=== PATIENT | female | born 1945 | race Caucasian/White ===

== ENCOUNTER 2020-01-28 16:13 | Emergency (ER) | payer OTHER, SELFPAY ==
[2020-01-28 16:26] VITALS: BP 117/57; PULSE 65; RESP 20; TEMP 36.7; O2SAT 98
--- NOTE | 2020-01-28 16:59 | ED.GENADULT ---
HPI - General Adult General Chief complaint: Upper Respiratory Infection Stated complaint: Sore throat/headache Time Seen by Provider: 01/28/20 16:59 Source: patient and RN notes reviewed Mode of arrival: ambulatory Limitations: no limitations History of Present Illness HPI narrative: 74-year-old female presents with complaints of upper respiratory infection symptoms, bilateral ear pain, sore throat with burning sensation, body aches, cough, and intermittent headaches (not the worst of her life) for 1 day. OTC cold and flu medicine, and Robitussin with little relief. History of Asthma. Dry cough. Chest congestion. Rhinorrhea and nasal congestion. Exacerbating factors consists of smoke exposure. Sore throat bilateral. Hurts to swallow. No voice change. No high fevers, chills, drooling, neck, or throat swelling. No nausea, vomiting, and abdominal pain. Tolerating po liquids well. Denies chest pain, dyspnea, coughing up blood, difficulty swallowing, jaw pain, dental pain, facial pain, foreign body sensation, and rash. Remains active. Some parts of this dictation were generated by voice recognition software and may contain typographical and/or grammatical inaccuracies. Related Data Home Medications Medication Instructions Recorded Confirmed Advair HFA 01/28/20 [id number] 01/28/20 albuterol sulfate [ProAir HFA] 1 inh INHALATION QID PRN 01/28/20 01/28/20 alprazolam 0.5 mg PO TID 01/28/20 01/28/20 atorvastatin 40 mg PO DAILY 01/28/20 01/28/20 bupropion HCl 300 mg PO QAM 01/28/20 01/28/20 hyoscyamine sulfate 0.125 mg PO QID 01/28/20 01/28/20 meloxicam 15 mg PO DAILY 01/28/20 01/28/20 metoclopramide HCl 10 mg PO BID PRN 01/28/20 01/28/20 metoprolol succinate 25 mg PO DAILY 01/28/20 01/28/20 montelukast 10 mg PO DAILY 01/28/20 01/28/20 Allergies Allergy/AdvReac Type Severity Reaction Status Date / Time codeine Allergy Unknown Vomiting Verified 01/28/20 16:36 erythromycin base Allergy Unknown Vomiting Verified 01/28/20 16:36 tetracycline Allergy Unknown Vomiting Verified 01/28/20 16:36 amoxicillin [From Augmentin] Allergy Vomiting Verified 01/28/20 16:36 clavulanic acid Allergy Vomiting Verified 01/28/20 16:36 [From Augmentin] MEPERIDINE HCL Allergy Mild HALLUCINATI Uncoded 06/04/19 14:50 ONS OXYCODONE HCL AdvReac Mild NAUSEA, Uncoded 06/04/19 14:50 VOMITING Review of Systems Review of Systems: Narrative: CONSTITUTIONAL: Denies fever, chills, sweats. EYES: Denies visual changes, redness, discharge. ENT: Complains of rhinorrhea, congestion, sore throat, bilateral otalgia. CARDIOVASCULAR: Denies chest pain, palpitations, edema. RESPIRATORY: Denies dyspnea, wheezing. Complains of dry cough. GASTROINTESTINAL: Denies abdominal pain, nausea, vomiting, diarrhea. GENITOURINARY: Denies dysuria, hematuria, abnormal discharge. SKIN: Denies rash or itching. MUSCULOSKELETAL: Denies acute back pain, joint pain. Complains of myalgia. NEUROLOGIC: Denies numbness or focal weakness. PSYCHIATRIC: Denies anxiety or depression. Complains of intermittent TUCKER. All systems reviewed & are unremarkable except as noted in HPI and below. [facility] Past Medical History Medical History (Updated 01/29/20 @ 00:01 by Warner Palomares) Asthma Blockage of coronary artery of heart Diabetes Diverticulitis Hypercholesteremia Hypertension Surgical History Surgical History (Updated 01/28/20 @ 17:40 by KIRT Silverman) History of cervical spinal surgery History of cholecystectomy History of fundoplication History of hysterectomy History of spinal surgery Lower back x2 History of total knee arthroplasty Left Family History Family History Sibling Hypertension Family history of coronary artery disease Father Family history of coronary artery disease Mother Family history of coronary artery disease Other Diabetes mellitus Social
== END 2020-01-28 17:20 | disposition home or self-care (01) ==
PROVIDERS: Emergency Provider Nurse Practitioner Family
DX: J06.9 Acute upper respiratory infection, unspecified (principal); H61.21 Impacted cerumen, right ear; J45.909 Unspecified asthma, uncomplicated; Z96.652 Presence of left artificial knee joint
CPT/HCPCS: 69210; 87804; 99213; G0463

== ENCOUNTER 2021-04-18 12:24 | Emergency (ER) | payer OTHER, SELFPAY ==
[2021-04-18 12:31] VITALS: BP 136/67; PULSE 56; RESP 20; TEMP 36.8; O2SAT 99
[2021-04-18 12:44] VITALS: BP 136/67; PULSE 56; RESP 20; TEMP 36.8; O2SAT 99
--- NOTE | 2021-04-18 12:53 | ED.URI ---
HPI - URI/Sore Throat General Chief Complaint: Upper Respiratory Infection Stated Complaint: cough/sinus congesiton Time Seen by Provider: 04/18/21 12:55 Source: patient and RN notes reviewed Mode of arrival: ambulatory Limitations: no limitations History of Present Illness HPI Narrative: 75-year-old female presents to the [facility] with concerns of her sinus infection and bronchitis. Has been using her inhaler more often. Symptoms for over a week. No relief with Mucinex. Been using her rescue inhaler more often and she is almost out. Reports cough, sinus congestion, and fatigue. No concern for covid 19- vaccinated. States that the only way she gets v this is amox, and medrol dose pac. Denies CP and abd pain. Denies fevers. States that she does have occasional SOB with Cough and her inhaler helps Related Data Home Medications Medication Instructions Recorded Confirmed Advair HFA 01/28/20 [id number] 01/28/20 albuterol sulfate [ProAir HFA] 1 inh INHALATION QID PRN 01/28/20 01/28/20 alprazolam 0.5 mg PO TID 01/28/20 01/28/20 atorvastatin 40 mg PO DAILY 01/28/20 01/28/20 bupropion HCl 300 mg PO QAM 01/28/20 01/28/20 hyoscyamine sulfate 0.125 mg PO QID 01/28/20 01/28/20 meloxicam 15 mg PO DAILY 01/28/20 01/28/20 metoclopramide HCl 10 mg PO BID PRN 01/28/20 01/28/20 metoprolol succinate 25 mg PO DAILY 01/28/20 01/28/20 montelukast 10 mg PO DAILY 01/28/20 01/28/20 clopidogrel 04/18/21 ezetimibe mg 04/18/21 famotidine 04/18/21 fluticasone propion-salmeterol INHALATION 04/18/21 [Wixela Inhub] topiramate 04/18/21 Allergies Allergy/AdvReac Type Severity Reaction Status Date / Time codeine Allergy Unknown Vomiting Verified 01/28/20 16:36 erythromycin base Allergy Unknown Vomiting Verified 01/28/20 16:36 tetracycline Allergy Unknown Vomiting Verified 01/28/20 16:36 amoxicillin [From Augmentin] Allergy Vomiting Verified 01/28/20 16:36 clavulanic acid Allergy Vomiting Verified 01/28/20 16:36 [From Augmentin] MEPERIDINE HCL Allergy Mild HALLUCINATI Uncoded 06/04/19 14:50 ONS OXYCODONE HCL AdvReac Mild NAUSEA, Uncoded 06/04/19 14:50 VOMITING Review of Systems Review of Systems: All systems reviewed & are unremarkable except as noted in HPI and below Constitutional: Constitutional: Reports as per HPI, Denies chills, Reports fatigue and Denies fever(s) Eyes: Eyes: Reports no additional eye complaints ENT: Reports as per HPI, Denies dysphagia, Denies dizziness, Reports nasal congestion and Denies sore throat Cardiovascular: Cardiovascular: Reports no additional cardiovascular complaints and Denies chest pain Respiratory: Respiratory: Reports as per HPI, Reports cough, Reports dyspnea and Denies wheezing Gastrointestinal: Gastrointestinal: Reports no additional gastrointestinal complaints, Denies abdominal pain, Denies nausea and Denies vomiting Musculoskeletal: Musculoskeletal: Reports no additional musculoskeletal complaints and Denies back pain Integumentary/Breasts: Skin/Breast: Reports system reviewed and no additional complaints, except as docu and Denies rash Neurologic: Reports system reviewed and no additional complaints, except as documented Psychiatric: Psychiatric: Reports no additional psychiatric complaints [facility] Past Medical History Medical History (Updated 04/18/21 @ 13:02 by Michelle Velasco) Asthma Blockage of coronary artery of heart Diabetes Diverticulitis Hypercholesteremia Hypertension Surgical History Surgical History History of cervical spinal surgery History of cholecystectomy History of fundoplication History of hysterectomy History of spinal surgery Lower back x2 History of total knee arthroplasty Left Family History Family History Sibling Hypertension Family history of coronary artery disease Father Family history of coronary artery disease
== END 2021-04-18 13:09 | disposition home or self-care (01) ==
PROVIDERS: Emergency Provider Nurse Practitioner
DX: J40 Bronchitis, not specified as acute or chronic (principal); E11.9 Type 2 diabetes mellitus without complications; E78.00 Pure hypercholesterolemia, unspecified; I10 Essential (primary) hypertension; I65.29 Occlusion and stenosis of unspecified carotid artery
CPT/HCPCS: 99213; G0463

== ENCOUNTER 2022-10-17 08:23 | Outpatient (CLI) | payer OTHER, SELFPAY ==
--- NOTE | ~2022-10-17 | DEXA_ITS ---
Bone Density Report Name: FELECIA HANSEN Age: 77 Sex: Female Ethnicity: White Date of : 1945 Indication: postmenopausal; screening for osteoporosis; height loss; inflammatory bowel disease; prior fracture; asthma or emphysema; hysterectomy; secondary osteoporosis; Referring Provider: CARROL MARCUM Study: Bone densitometry was performed. Exam Date: October 17, 2022 Accession number: [id number] Bone Density: Region BMD T-score Z-score Classification AP Spine(L1, L2) 0.940 -0.4 2.1 Normal Femoral Neck (Left) 0.698 -1.4 0.9 Osteopenia Total Hip (Left) 0.892 -0.4 1.6 Normal Femoral Neck (Right) 0.651 -1.8 0.5 Osteopenia Total Hip (Right) 0.833 -0.9 1.1 Normal Total Hip Mean 0.862 -0.7 1.4 Normal World Health Organization criteria for BMD impression classify patients as: Normal (T-score at or above -1.0), Osteopenia (T-score between -1.0 and -2.5), or Osteoporosis (T-score at or below -2.5). 10-year Fracture Risk: FRAX not reported because: Prior hip or vertebral fracture Clinical Information Provided by Patient: Have had a previous hip or vertebral fracture Has had a low trauma fracture Has secondary osteoporosis Has used the following medications: Vitamin D Has the following medical conditions: Asthma or Emphysema, Inflammatory bowel diseases, Hysterectomy Patient maximum height was 63.25 Menopause Age: 39 No regular weight bearing exercise Drinks caffeinated beverages Onset of menses at age 11 Number of children 2 Impression: The patient has low bone mass, based on the Right Femoral Neck T-score. The patient has risk factors, including: previous fracture. Discussion: INCREASED RISK OF FRACTURE DUE TO HISTORY OF FRACTURE. The patient's previous fracture puts the patient at high risk of a future fracture. In untreated patients, the risk of osteoporotic fracture increases approximately two-fold for each 1.0 SD decrease in T-score. Low bone density is not the only risk factor for fracture; also consider factors such as patient's age, frailty or poor health, risk of falling, risk of injury, previous osteoporotic fracture, family history of osteoporosis, cigarette smoking, low body weight, etc. Not everyone with a low trauma fracture has osteoporosis; osteomalacia and other metabolic bone disorders should also be considered. Patients who have osteoporosis should be evaluated for specific diseases and conditions (secondary causes) that may cause or contribute to bone loss and fracture risk. National Osteoporosis Foundation (NOF) recommends pharmacologic intervention for patients with a prior hip or vertebral fracture regardless of BMD T-score. The patient should follow a healthful lifestyle (good nutrition with adequate calcium and vitamin D, and appropriate weight-bearing exercise).
== END 2022-10-17 08:24 | disposition home or self-care (01) ==
PROVIDERS: PCP Family Medicine; Visit Provider Nurse Practitioner Family
DX: Z78.0 Asymptomatic menopausal state (principal); Z91.89 Other specified personal risk factors, not elsewhere classified; M85.852 Other specified disorders of bone density and structure, left thigh; M85.851 Other specified disorders of bone density and structure, right thigh
CPT/HCPCS: 77080

== ENCOUNTER 2022-11-24 13:14 | Emergency (ER) | payer OTHER, SELFPAY ==
[2022-11-24 14:15] VITALS: BP 141/69; PULSE 68; RESP 16; TEMP 37.2; O2SAT 100
--- NOTE | 2022-11-24 14:59 | ED.BACK ---
HPI - Back Pain/Injury General Chief Complaint: Back Pain/Injury Stated Complaint: back pain Time Seen by Provider: 11/24/22 14:59 Source: patient Mode of arrival: ambulatory Limitations: no limitations History of Present Illness HPI Narrative: 77-year-old female presented for complaints of low back pain for 3 days. She endorses ?tweaking her back? on 2 occasions while pushing off toilet seat. She states she did not have a grab bar therefore had to use her arm to push herself up on 2 consecutive days. Then she had a long car ride, resulting in low back pain. Pain worse with ambulation, rates /10. Denies numbness, tingling, weakness of lower extremities. She has taken cyclobenzaprine she had leftover. History of low back disc fusions and cervical plate. Related Data Home Medications Medication Instructions Recorded Confirmed ezetimibe 10 mg tablet mg 04/18/21 10/11/22 atorvastatin 40 mg tablet 80 mg PO DAILY 08/22/21 10/11/22 amlodipine 2.5 mg tablet 2.5 mg PO DAILY 10/10/21 10/11/22 nitroglycerin 0.4 mg sublingual 0.4 mg sublingual ONCE PRN chest 10/11/22 10/11/22 tablet pain Allergies Allergy/AdvReac Type Severity Reaction Status Date / Time codeine Allergy Unknown Vomiting Verified 11/24/22 14:41 erythromycin base Allergy Unknown Vomiting Verified 11/24/22 14:41 tetracycline Allergy Unknown Vomiting Verified 11/24/22 14:41 amoxicillin [From Augmentin] Allergy Vomiting Verified 11/24/22 14:41 clavulanic acid Allergy Vomiting Verified 11/24/22 14:41 [From Augmentin] MEPERIDINE HCL Allergy Mild HALLUCINATI Uncoded 11/24/22 14:41 ONS OXYCODONE HCL AdvReac Mild NAUSEA, Uncoded 11/24/22 14:41 VOMITING Review of Systems Review of Systems: CONSTITUTIONAL: Denies body aches, fever, chills EYES: Denies visual changes CARDIOVASCULAR: Denies chest pain, palpitations, or edema. RESPIRATORY: Denies cough or dyspnea. GASTROINTESTINAL: Denies abdominal pain, nausea, vomiting, or diarrhea. SKIN: Denies rash, itching, or wounds. MUSCULOSKELETAL: reports back pain NEUROLOGIC: Denies headache, numbness, tingling, or weakness. All systems reviewed & are unremarkable except as noted in HPI and below PMFSH Past Medical History Medical History Abnormal mammogram of left breast Asthma Blockage of coronary artery of heart BMI 31.0-31.9,adult COVID Diabetes Diverticulitis Gastroparesis Hypercholesteremia Hypertension Surgical History Surgical History History of cervical spinal surgery History of cholecystectomy History of fundoplication History of hysterectomy History of spinal surgery Lower back x2 History of total knee arthroplasty Left Family History Family History Sibling Hypertension Family history of coronary artery disease Father Family history of coronary artery disease Mother Family history of coronary artery disease Other Diabetes mellitus Social History Social History Smoking status: Never smoker Second hand tobacco smoke exposure: Yes Alcohol intake: never Substance use: never Gender identity (if verbalized by the patient): Female Comments At time of signature, I have reviewed and agree with nursing past medical, surgical, social and family history unless otherwise noted. Please see nursing chart for further information. There is no relevant family history pertinent to the presenting complaint Exam Narrative: GENERAL: Well-appearing, well-nourished HEAD: Normocephalic, atraumatic. EYES: conjunctivae clear NECK: Supple. full ROM CHEST: Speaks in full sentences. No respiratory distress. HEART: Regular rate and rhythm. Normal and equal peripheral pulses. MUSC: No Vertebral point tenderness. Noted to have para spinal tenderness to L4-5 are
[2022-11-24] MEDS: KETOROLAC (*BKC) 60 MG/2 ML VIAL IM (15:31)
== END 2022-11-24 15:41 | disposition home or self-care (01) ==
PROVIDERS: Emergency Provider Nurse Practitioner Family; PCP Family Medicine
DX: S39.012A Strain of muscle, fascia and tendon of lower back, initial encounter (principal); X50.0XXA Overexertion from strenuous movement or load, initial encounter; J45.909 Unspecified asthma, uncomplicated; E78.00 Pure hypercholesterolemia, unspecified; I10 Essential (primary) hypertension; E11.43 Type 2 diabetes mellitus with diabetic autonomic (poly)neuropathy; K31.84 Gastroparesis
CPT/HCPCS: 96372; 99213; G0463; J1885

== ENCOUNTER → 2022-12-10 12:13 | Outpatient (CLI) | payer OTHER, SELFPAY ==
--- NOTE | ~2022-12-10 | XR_ITS ---
[id number] DATE: 12/10/2022 12:58 INDICATION: Cervical spine fusion TECHNIQUE: AP, open-mouth, lateral and swimmer views COMPARISON: None FINDINGS: Status post anterior cervical spine fusion at C5-C7. C1 and C2 are normally aligned and the odontoid process is intact. No fracture or dislocation or lock ed facet or prevertebral soft tissue swelling is detected. There is moderate moderate degenerative disc disease at C4-5. There is degenerative change at the apophyseal joints throughout the cervical spine. IMPRESSION: Status post anterior cervical spine surgical fusion at C5-C7 Mild to moderate degenerative disc disease at C4-5 Reviewed, dictated and finalized at [facility]. Reviewed, dictated and finalized at location [facility]. OR OF NURSE ANESTHESIA
== END ==
PROVIDERS: PCP Nurse Practitioner Family; Visit Provider Nurse Practitioner Family
DX: R51.9 Headache, unspecified (principal); Z98.890 Other specified postprocedural states; Z98.1 Arthrodesis status; M50.321 Other cervical disc degeneration at C4-C5 level
CPT/HCPCS: 72040

== ENCOUNTER 2024-01-12 08:05 | Emergency (ER) | payer OTHER, SELFPAY ==
[2024-01-12 08:12] VITALS: BP 143/63; PULSE 70; RESP 16; TEMP 36.8; O2SAT 98
--- NOTE | 2024-01-12 08:13 | ED.GENADULT ---
HPI - General Adult General Chief complaint: Urogenital-Female Stated complaint: Bladder Infection Symptoms Source: patient, RN notes reviewed and old records reviewed Mode of arrival: ambulatory Limitations: no limitations History of Present Illness HPI narrative: 78-year-old female presents to [facility] with complaints of diarrhea for the last 2 days. Patient states then began having lower back pain in lower abdominal and no cramping with urinary frequency. Patient worried she has UTI. Patient states has IBS so unsure if diarrhea is related to that. Patient denies any other symptoms. Related Data Home Medications Medication Instructions Recorded Confirmed ezetimibe 10 mg tablet 10 mg PO DAILY 04/18/21 01/12/24 atorvastatin 40 mg tablet 80 mg PO DAILY 08/22/21 01/12/24 amlodipine 2.5 mg tablet 2.5 mg PO DAILY 10/10/21 01/12/24 nitroglycerin 0.4 mg sublingual 0.4 mg sublingual ONCE PRN chest 10/11/22 01/12/24 tablet pain gabapentin 100 mg capsule 100 mg PO DAILY 10/11/23 01/12/24 Allergies Allergy/AdvReac Type Severity Reaction Status Date / Time codeine Allergy Unknown Vomiting Verified 01/12/24 08:38 erythromycin base Allergy Unknown Vomiting Verified 01/12/24 08:38 tetracycline Allergy Unknown Vomiting Verified 01/12/24 08:38 amoxicillin [From Augmentin] Allergy Vomiting Verified 01/12/24 08:38 clavulanic acid Allergy Vomiting Verified 01/12/24 08:38 [From Augmentin] Opioids-Meperidine and AdvReac Severe Hallucinati Verified 01/12/24 08:38 Related ng OXYCODONE HCL AdvReac Mild NAUSEA, Uncoded 01/12/24 08:38 VOMITING Review of Systems Constitutional: Constitutional: Reports no additional constitutional complaints, Denies body ache(s), Denies chills, Denies fatigue, Denies fever(s) and Denies headache(s) Eyes: Eyes: Reports no additional eye complaints and Denies blurry vision ENT: Reports system reviewed and no additional complaints, except as documented, Denies vertigo, Denies dizziness, Denies ear discharge, Denies otalgia, Denies facial pain, Denies headache(s), Denies nasal congestion, Denies nasal discharge, Denies sinus pain, Denies sinus pressure and Denies sore throat Cardiovascular: Cardiovascular: Reports no additional cardiovascular complaints, Denies chest pain, Denies chest pain at rest, Denies rapid heart rate and Denies dyspnea Respiratory: Respiratory: Reports no additional respiratory complaints, Denies chest congestion, Denies cough, Denies pain on inspiration, Denies pain with cough and Denies dyspnea Gastrointestinal: Gastrointestinal: Reports abdominal pain, Reports diarrhea, Denies nausea and Denies vomiting Genitourinary: Genitourinary: Reports nocturia Musculoskeletal: Musculoskeletal: Reports back pain Integumentary/Breasts: Skin/Breast: Denies rash Neurologic: Reports system reviewed and no additional complaints, except as documented, Denies vertigo, Denies dizziness and Denies headache(s) Endocrine: Endocrine: Denies fatigue [facility] Past Medical History Medical History Abnormal mammogram of left breast ASCVD (arteriosclerotic cardiovascular disease) Asthma Blockage of coronary artery of heart BMI 31.0-31.9,adult BMI 32.0-32.9,adult COVID Diabetes Diverticulitis Dysphagia Gastroparesis Hypercholesteremia Hypertension Medicare annual wellness visit, initial Osteopenia after menopause Wellness examination Surgical History Surgical History History of cervical spinal surgery History of cholecystectomy History of fundoplication History of hysterectomy History of spinal surgery Lower back x2 History of total knee arthroplasty Left Family History Family History Sibling Hypertension Family history of coronary artery disease Heart disease Father Family history of coronary a
== END 2024-01-12 08:45 | disposition home or self-care (01) ==
PROVIDERS: Emergency Provider Registered Nurse; PCP Family Medicine
DX: N39.0 Urinary tract infection, site not specified (principal); E11.9 Type 2 diabetes mellitus without complications; I10 Essential (primary) hypertension; Z79.899 Other long term (current) drug therapy
CPT/HCPCS: 81003; 87086; 99213; G0463

== ENCOUNTER 2024-01-12 09:49 | Emergency (ER) | payer OTHER, SELFPAY ==
[2024-01-12] VITALS (8 sets, daily range): BP systolic 82–138; BP diastolic 47–86; PULSE 74–117; RESP 16–20; TEMP 35.8–36.6; O2SAT 89–100
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
--- NOTE | 2024-01-12 09:52 | ECG_ITS ---
Measurements Intervals [place] Rate: 89 P: 36 MD: 173 QRS: -37 QRSD: 109 T: 120 QT: 365 QTc: 445 Interpretive Statements SINUS RHYTHM LEFT ANTERIOR SUPERIOR HEMIBLOCK LEFT VENTRICULAR HYPERTROPHY AND ST-T CHANGE [VOLTAGE CRITERIA PLUS ST/T ABNORMALITY] ABNORMAL ECG NO PREVIOUS ECG AVAILABLE FOR COMPARISON Electronically Signed On 01-12-2024 14:13:40 PROFESSOR OF THEOLOGY by Barrett Rand M.D.
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
[2024-01-12 10:15] LABS: Basophils Absolute Auto 0.1 K/mm3 (0.0-0.1); Basophils Percent Auto 0.6 % (0.2-1.2); Eosinophils Absolute Auto 0.1 K/mm3 (0-0.3); Eosinophils Percent Auto 0.9 % (0-4.4); Hematocrit 39.5 % (37.0-47.0); Hemoglobin 12.5 g/dL (12.0-15.0); Immature Granulocyte Absolute 0.07 K/mm3 (0.00-0.031); Immature Granulocyte Percent A 0.5 % (0-0.5); Lymphocytes Absolute Auto 3.15 K/mm3 (0.9-3.2); Lymphocytes Percent Auto 21.3 % (18.3-44.2); Mean Corpuscular HGB Conc 31.6 g/dl (32-36); Mean Corpuscular Hemoglobin 29.1 pg (26-34); Mean Corpuscular Volume 91.9 fl (80-100); Mean Platelet Volume 9.8 fl (7.4-10.4); Monocytes Absolute Auto 0.9 K/mm3 (0.1-0.6); Monocytes Percent Auto 6.4 % (2.6-8.5); Neutrophils Absolute Auto 10.4 K/mm3 (1.3-6.7); Neutrophils Percent Auto 70.3 % (45.5-73.1); Platelet Count Result 418 k/mm3 (150-375); Red Cell Distribution Width 13.3 % (11.5-14.5); White Blood Count 14.8 K/mm3 (4.5-10.0)
[2024-01-12 10:24] LABS: Alanine Aminotransferase 19 U/L (6-35); Albumin Level 4.5 g/dL (3.5-5.1); Alkaline Phosphatase 122 U/L (38-126); Anion Gap 6 mmol/L (8-16); Aspartate Amino Transferase 34 U/L (14-36); Bilirubin,Total 0.7 mg/dL (0.2-1.3); Blood Urea Nitrogen 10 mg/dL (7-17); Calcium 9.6 mg/dL (8.4-10.2); Carbon Dioxide 24 mmol/L (22-30); Chloride 103 mmol/L (98-107); Estimated CRCL calculation 46 ml/min; Estimated Glomerular Filt Rate > 60; Glucose 132 mg/dL (65-110); Sodium 133 mmol/L (137-145)
[2024-01-12 10:26] LABS: INR 0.9; Prothrombin Time 12.7 Seconds (11.1-14.7)
[2024-01-12 10:27] LABS: Partial Thromboplastin Time 26.5 SECONDS (22.3-36.8)
[2024-01-12 10:34] LABS: Estimated CRCL calculation 41 ml/min; Estimated Glomerular Filt Rate 60
[2024-01-12 10:36] LABS: Troponin I < 0.012 ng/mL (0.000-0.034)
[2024-01-12] MEDS: MORPHINE SULFATE (*CRX) 2 MG/ML INJ IV PUSH (11:26)
[2024-01-12] MEDS: ONDANSETRON INJ 4 MG/2 ML VIAL IV PUSH (11:26)
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
[2024-01-12] MEDS: SODIUM CHLORIDE 0.9% IV 1,000 ML 999 ML (12:17)
== END 2024-01-12 12:37 | disposition short-term general hospital (02) ==
PROVIDERS: Emergency Provider Physician Assistant; PCP Family Medicine
DX: S30.1XXA Contusion of abdominal wall, initial encounter (principal); S09.90XA Unspecified injury of head, initial encounter; K57.32 Diverticulitis of large intestine without perforation or abscess without bleeding; I25.10 Atherosclerotic heart disease of native coronary artery without angina pectoris; I10 Essential (primary) hypertension; J45.909 Unspecified asthma, uncomplicated; E11.43 Type 2 diabetes mellitus with diabetic autonomic (poly)neuropathy; K31.84 Gastroparesis; E78.00 Pure hypercholesterolemia, unspecified; M85.80 Other specified disorders of bone density and structure, unspecified site; Z96.652 Presence of left artificial knee joint; Z98.1 Arthrodesis status; Z86.16 Personal history of COVID-19; Z90.49 Acquired absence of other specified parts of digestive tract; Z90.710 Acquired absence of both cervix and uterus; Z79.02 Long term (current) use of antithrombotics/antiplatelets; R91.1 Solitary pulmonary nodule; J43.9 Emphysema, unspecified; M19.021 Primary osteoarthritis, right elbow; M17.11 Unilateral primary osteoarthritis, right knee; M19.071 Primary osteoarthritis, right ankle and foot; I51.7 Cardiomegaly; I44.4 Left anterior fascicular block; M47.812 Spondylosis without myelopathy or radiculopathy, cervical region; V49.50XA Passenger injured in collision with unspecified motor vehicles in traffic accident, initial encounter
CPT/HCPCS: 36415; 36430; 70450; 71260; 72125; 73080; 73590; 74177; 80053; 84484; 85025; 85610; 85730; 86850; 86900; 86901; 86923; 93005; 96374; 96375; 99285; J2270; J2405; J7030; J7050; P9016; P9034; Q9967

== ENCOUNTER 2024-04-23 14:27 | Outpatient (CLI) | payer OTHER, SELFPAY ==
--- NOTE | ~2024-04-23 | XR_ITS ---
EXAM: XR lumbar spine 2-3V DATE: 04/23/2024 14:41 HISTORY: M54.9 - Dorsalgia, unspecified . COMPARISON: 09/25/2012; CT cap 01/12/2024. FINDINGS: Decreased mineralization. Partial sacralization of L5. 5 nonrib-bearing lumbar-type verteb ral bodies, with hypoplastic ribs at T12. Uncomplicated posterior fusion hardware at L4-5. 3 mm anter olisthesis at L3-4. Multilevel mild concave endplate deformities. Mild marginal osteophytosis at all lumbar levels. Mild disc space narrowing at L3-4. Moderate disc space narrowing at L4-5. Moderate fac et hypertrophy and sclerosis in the mid and lower lumbar spine. IMPRESSION: Osteopenia. Posterior L4-5 fusion. Grade 1 anterolisthesis at L3-4. Multilevel degenerati ve disc disease. Multilevel moderate lumbar facet arthropathy. Reviewed, dictated and finalized at location K. IMPRESSION: Osteopenia. Posterior L4-5 fusion. Grade 1 anterolisthesis at L3-4. Multilevel degenerative disc disease. Multilevel moderate lumbar facet arthrop athy.
== END 2024-04-23 14:28 ==
PROVIDERS: PCP Family Medicine; Visit Provider Nurse Practitioner Adult Health
DX: M85.88 Other specified disorders of bone density and structure, other site (principal); M43.16 Spondylolisthesis, lumbar region; M47.896 Other spondylosis, lumbar region; Z98.1 Arthrodesis status
CPT/HCPCS: 72100

== ENCOUNTER 2024-06-03 01:33 | Day surgery (SDC) | payer OTHER, SELFPAY ==
[2024-06-01 15:24] VITALS: BMI 32.3
[2024-06-03 08:38] VITALS: BP 151/62; PULSE 67; RESP 18; TEMP 36; O2SAT 97; BMI 31.4
[2024-06-03] MEDS: LACTATED RINGERS 1,000 ML 150 ML IV CONT (08:50)
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
[2024-06-03] MEDS: BENZOCAINE (*SP) 60 ML SPRAY CAN (HURRICAINE) 1 SPRAY MUCOUS MEM (09:29)
[2024-06-03 09:36] VITALS: BP 152/66; PULSE 63; RESP 22; O2SAT 96
[2024-06-03 09:46] VITALS: BP 136/67; PULSE 61; RESP 22; O2SAT 99
[2024-06-03 09:56] VITALS: BP 153/72; PULSE 60; RESP 21; O2SAT 100
== END 2024-06-03 10:08 | disposition home or self-care (01) ==
PROVIDERS: PCP Family Medicine; Referring Provider Nurse Practitioner Adult Health; Visit Provider Internal Medicine Gastroenterology
PROC: 0DJ08ZZ Inspection of Upper Intestinal Tract, Via Natural or Artificial Opening Endoscopic (ICD-10-PCS; CPT 43235; principal; 2024-06-03 10:00)
DX: K29.70 Gastritis, unspecified, without bleeding (principal); I10 Essential (primary) hypertension; I25.10 Atherosclerotic heart disease of native coronary artery without angina pectoris; J45.909 Unspecified asthma, uncomplicated; E11.43 Type 2 diabetes mellitus with diabetic autonomic (poly)neuropathy; K31.84 Gastroparesis; E78.00 Pure hypercholesterolemia, unspecified; Z79.51 Long term (current) use of inhaled steroids; Z79.82 Long term (current) use of aspirin; E66.9 Obesity, unspecified; Z68.31 Body mass index [BMI] 31.0-31.9, adult
CPT/HCPCS: 43239; 88305; J2704; J7120

== ENCOUNTER 2024-07-13 12:13 | Outpatient (CLI) | payer OTHER, SELFPAY ==
--- NOTE | ~2024-07-13 | US_ITS ---
EXAMINATION: US venous doppler [facility] DATE: 07/13/2024 12:59 INDICATION: Right lower limb localized swelling. TECHNIQUE: Grayscale ultrasound images without and with compression and Doppler ultrasound images of the bilateral lower extremity veins were obtained. COMPARISON: None. FINDINGS: The visualized portions of right common femoral vein, profunda (deep) femoral vein, femoral vein, pop liteal vein, peroneal veins, posterior tibial veins, and greater saphenous vein outflow are patent. The visualized portions of left common femoral vein, profunda femoral vein, femoral vein, popliteal v ein, peroneal veins, posterior tibial veins, and greater saphenous vein outflow are patent. IMPRESSION: 1. No deep venous thrombosis. Reviewed, dictated and finalized at location A.
== END 2024-07-13 12:14 | disposition home or self-care (01) ==
LOC: ANHIMG 12:17
PROVIDERS: PCP Family Medicine; Visit Provider Physician Assistant Medical
DX: R22.43 Localized swelling, mass and lump, lower limb, bilateral (principal)
CPT/HCPCS: 93970

== ENCOUNTER 2024-12-08 09:08 | Outpatient (CLI) | payer OTHER, SELFPAY ==
--- NOTE | ~2024-12-08 | XR_ITS ---
XR tibia fibula RT 2V Ordering provider: KIRT Tejada History: . M79.661 - Pain in right lower, leg student positioned . Comparison: None. FINDINGS: BONES: No acute fracture or dislocation. Old healed fracture of the medial malleolus is not excluded. JOINT SPACES: Osteoarthritic changes of the knee and ankle joints. SOFT TISSUES: Normal. IMPRESSION: No acute osseous abnormality right leg. Osteoarthritic changes of the knee and ankle joints Reviewed, dictated and finalized at location A. ICATION DESIGNER
== END 2024-12-08 09:09 | disposition home or self-care (01) ==
PROVIDERS: PCP Family Medicine; Visit Provider Nurse Practitioner Family
DX: M17.11 Unilateral primary osteoarthritis, right knee (principal); M19.071 Primary osteoarthritis, right ankle and foot
CPT/HCPCS: 73590

== ENCOUNTER 2025-02-10 09:43 | Outpatient (CLI) | payer OTHER, SELFPAY ==
--- NOTE | ~2025-02-10 | CT_ITS ---
CT Scan of the Chest without Contrast: Clinical Indication: Lung nodules Technique: Contiguous sections were acquired throughout the chest without intravenous contrast. Dose reduction technique was used on this scan by utilizing automated exposure control and iterative recon struction technique. The dose-length product (DLP) was 95.45 mGy-cm. COMPARISON: 01/12/2024 Findings: There is no evidence of any significant mediastinal, hilar or axillary lymphadenopathy. There is an a pparent stent present at the proximal left subclavian artery. Coronary artery calcifications are pres ent. There is no evidence of pleural or pericardial effusion. Calcified right lower lobe granuloma present. Stable 4 mm right middle lobe nodule. Images through the upper abdomen reveal no abnormalities. There is degenerative spondylosis of the sp ine. Impression: Lung RADS 2: Benign appearance. 12 month follow-up screening CT advised. Reviewed, dictated and finalized at [facility]. Impression: Lung RADS 2: Benign appearance. 12 month follow-up screening CT advised.
--- OUTSIDE RECORDS SUMMARY | 2025-02-10 10:54 | XMS_ITS | Encounter Summary ---
Author Organization [facility] Address 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
--- OUTSIDE RECORDS SUMMARY | 2025-02-10 10:54 | XMS_ITS | Encounter Summary ---
Author Organization [facility] Address [address] [place] [address] Care Team Providers Care Test Preparation Tutor Name Role Phone Jaswant Kirby MD Primary Care Provider Unavail able Encounter Details Date Type Department Care Team (Latest Contact Info) Description 07/15/2007 Outpatient Historical [facility] [place] [address] [address] [facility] [address] [place] [address] Other Chest Pain (Primary Dx) Social History Tobacco Use Types Packs/Day Years Used Date Smoking Tobacco: Never Assessed Comments Unknown Sex and Gender Information Value Date Recorded Sex Assigned at Not on file 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 Gender Identity Not on file Sexual Orientation Not on file documented as of this encounter Plan of Treatment Not on file documented as of this encounter Procedures Procedure Name Priority Date/Time Associated Diagnosis Comments TROPONIN (W/REFLEX CKMB/CK) Routine 07/16/2007 10:38 AM CDT CBC WITH DIFFERENTIAL Routine 07/16/2007 5:36 AM CDT CBC WITH DIFFERENTIAL Routine 07/16/2007 5:36 AM CDT LIPASE Routine 07/16/2007 5:36 AM CDT AMYLASE Routine 07/16/2007 5:36 AM CDT COMPREHENSIVE METABOLIC PANEL Routine 07/16/2007 5:36 AM CDT TROPONIN (W/REFLEX CKMB/CK) Routine 07/16/2007 1:00 AM CDT TROPONIN (W/REFLEX CKMB/CK) Routine 07/15/2007 5:04 PM CDT CBC WITH DIFFERENTIAL Routine 07/15/2007 5:04 PM CDT CBC WITH DIFFERENTIAL Routine 07/15/2007 5:04 PM CDT COMPREHENSIVE METABOLIC PANEL Routine 07/15/2007 5:04 PM CDT documented in this encounter Results * TROPONIN (W/REFLEX CKMB/CK) (07/16/2007 10:38 AM CDT) TROPONIN T <0.01 <=0.03 ng/mL INTERFACE SYSTEM TROPONIN T INTERP Negative INTERFACE SYSTEM 07/16/2007 10:3 8 AM CDT us Mesha Delcid DO CHEMISTRY ORDERABLES Edited Performing Organization Address City/[facility] de Phone Number INTERFACE SYSTEM Refer to clinic/hospital department * LIPASE (07/16/2007 5:36 AM CDT) LIPASE 28 13 - 60 U/L INTERFAC E SYSTEM 07/16/2007 5:36 AM CDT us Leonardo Rodriguez MD CHEMISTRY ORDERABLES Edite d Performing Organization Address City/[facility] Co de Phone Number INTERFACE SYSTEM Refer to clinic/hospital department * AMYLASE (07/16/2007 5:36 AM CDT) AMYLASE 39 28 - 100 U/L INTERFACE SYSTEM 07/16/2007 5:36 AM CDT us Leonardo Rodriguez MD CHEMISTRY ORDERABLES Edite d Performing Organization Address [facility] Co de Phone Number INTERFACE SYSTEM Refer to clinic/hospital department * CBC WITH DIFFERENTIAL (07/16/2007 5:36 AM CDT) NEUTROPHILS 59 45 - 70 % INTERFAC E SYSTEM LYMPHOCYTES 32 16 - 45 % INTERFAC E SYSTEM MONOCYTES 6 3 - 13 % INTERFACE SYSTEM EOSINOPHILS 2 0 - 7 % INTERFAC E SYSTEM BASOPHILS 1 0 - 2 % INTERFACE SYSTEM NEUTROPHIL ABSOLUTE 6.67 1.90 - 7.00 K/uL INTERFACE SYSTEM LYMPHOCYTE ABSOLUTE 3.65 0.70 - 4.50 K/uL INTERFACE SYSTEM MONOCYTE ABSOLUTE 0.72 0.10 - 1.30 K/uL INTERFACE SYSTEM EOSINOPHIL ABSOLUTE 0.27 0.00 - 0.70 K/uL INTERFACE SYSTEM BASOPHILS ABSOLUTE 0.07 0.00 - 0.20 K/uL INTERFACE SYSTEM 07/16/2007 5:36 AM CDT Mesha Heather Delcid DO HEMATOLOGY ORDERABLES Edited Performing Organization Address [facility] de Phone Number INTERFACE SYSTEM Refer to clinic/hospital department * (ABNORMAL) CBC WITH DIFFERENTIAL (07/16/2007 5:36 AM CDT) WBC 11.4(H) 4.0 - 9.8 K/uL INTERFACE SYSTEM RBC 4.20 3.90 - 4.90 M/uL INTERFACE SYSTEM HEMOGLOBIN 12.0 11.8 - 14.8 g/dL INTERFACE SYSTEM HEMATOCRIT 35.8 35.5 - 44.0 % INTERFACE SYSTEM MCV 85.2 82.0 - 99.0 fL INTERFACE SYSTEM MCH 28.6 27.2 - 32.6 pg INTERFACE SYSTEM MCHC 33.5 31.5 - 35.5 % INTERFACE SYSTEM RDW 13.8 11.5 - 14.5 % INTERFACE SYSTEM RDW-STDEV 42.3 37.1 - 48.7 fL INTERFACE SYSTEM PLATELETS 471(H) 140 - 350 K/uL INTERFACE SYSTEM MPV 10.1 9.3 - 12.4 fL INTERFACE SYSTEM 07/16/2007 5:36 AM CDT Mesha Delcid HEMATOLOGY ORDERABLES Edited Performing Organization Address [facility] de Phone Number INTERFACE SYSTEM Refer to clinic/hospital department * (ABNORMAL) COMPREHENSIVE METABOLIC PANEL (07/16/2007 5:36 AM CDT) GLUCOSE 114(H) 65 - 99 mg/dL INTERFACE SYSTEM CREATININE 0.74 0.51 - 0.95 mg/dL INTERFACE SYSTEM CALCIUM 9.1 8.4 - 10.2 mg/dL INTERFACE SYSTEM ALKALINE PHOSPHATASE 138(H) 35 - 104 U/L INTERFACE SYSTEM AST 30 12 - 32 U/L INTERFACE SYSTEM ALT 38(H) 0 - 31 U/L INTERFACE SYSTEM TOTAL PROTEIN 6.8 6.3 - 8.6 g/dL INTERFACE SYSTEM ALBUMIN 4.2 3.4 - 4.8 g/dL INTERFACE SYSTEM BILIRUBIN TOTAL 0.3 0.2 - 1.0 mg/dL INTERFACE SYSTEM BUN 12 6 - 20 mg/dL INTERFACE SYSTEM SODIUM 138 135 - 145 mmol/L INTERFACE SYSTEM POTASSIUM 3.7 3.5 - 4.9 mmol/L INTERFACE SYSTEM CHLORIDE 100 96 - 108 mmol/L INTERFACE SYSTEM CO2 27 22 - 30 mmol/L INTERFACE SYSTEM GFR, >60 >=60 mL/min/1. 7 sq meter INTERFACE SYSTEM GFR >60 >=60 mL/min/1. 7 sq meter INTERFACE SYSTEM Comment: Estimated GFR rate interpretative information for both Americans and non- Americans is available on the [facility] Intranet at: [email or web address] Select: Lab Policies and Procedures Select: Reference Ranges - GFR 07/16/2007 5:36 AM CDT Mesha Delcid DO CHEMISTRY ORDERABLES Edited Performing Organization Address [facility] Phone Number INTERFACE SYSTEM Refer to clinic/hospital department * TROPONIN (W/REFLEX CKMB/CK) (07/16/2007 1:00 AM CDT) TROPONIN T <0.01 <=0.03 ng/mL INTERFACE SYSTEM TROPONIN T INTERP Negative INTERFACE SYSTEM 07/16/2007 1:00 AM CDT Mesha Delcid DO CHEMISTRY ORDERABLES Edited Performing Organization Address [facility] Co de Phone Number INTERFACE SYSTEM Refer to clinic/hospital department * TROPONIN (W/REFLEX CKMB/CK) (07/15/2007 5:04 PM CDT) TROPONIN T <0.01 <=0.03 ng/mL INTERFACE SYSTEM TROPONIN T INTERP Negative INTERFACE SYSTEM 07/15/2007 5:04 PM CDT David Alba MD CHEMISTRY ORDERABLES Edited Performing Organization Address [facility] de Phone Number INTERFACE SYSTEM Refer to clinic/hospital department * (ABNORMAL) CBC WITH DIFFERENTIAL (07/15/2007 5:04 PM CDT) NEUTROPHILS 56 45 - 70 % INTERFAC E SYSTEM LYMPHOCYTES 36 16 - 45 % INTERFAC E SYSTEM MONOCYTES 6 3 - 13 % INTERFACE SYSTEM EOSINOPHILS 2 0 - 7 % INTERFAC E SYSTEM BASOPHILS 1 0 - 2 % INTERFACE SYSTEM NEUTROPHIL ABSOLUTE 7.16(H) 1.90 - 7.00 K/uL INTERFACE SYSTEM LYMPHOCYTE ABSOLUTE 4.67(H) 0.70 - 4.50 K/uL INTERFACE SYSTEM MONOCYTE ABSOLUTE 0.75 0.10 - 1.30 K/uL INTERFACE SYSTEM EOSINOPHIL ABSOLUTE 0.24 0.00 - 0.70 K/uL INTERFACE SYSTEM BASOPHILS ABSOLUTE 0.08 0.00 - 0.20 K/uL INTERFACE SYSTEM 07/15/2007 5:04 PM CDT David Alba MD HEMATOLOGY ORDERABLES Edited Performing Organization Address [facility] Phone Number INTERFACE SYSTEM Refer to clinic/hospital department * (ABNORMAL) CBC WITH DIFFERENTIAL (07/15/2007 5:04 PM CDT) WBC 12.9(H) 4.0 - 9.8 K/uL INTERFACE SYSTEM RBC 4.34 3.90 - 4.90 M/uL INTERFACE SYSTEM HEMOGLOBIN 12.5 11.8 - 14.8 g/dL INTERFACE SYSTEM HEMATOCRIT 36.9 35.5 - 44.0 % INTERFACE SYSTEM MCV 85.0 82.0 - 99.0 fL INTERFACE SYSTEM MCH 28.8 27.2 - 32.6 pg INTERFACE SYSTEM MCHC 33.9 31.5 - 35.5 % INTERFACE SYSTEM RDW 13.7 11.5 - 14.5 % INTERFACE SYSTEM RDW-STDEV 42.6 37.1 - 48.7 fL INTERFACE SYSTEM PLATELETS 471(H) 140 - 350 K/uL INTERFACE SYSTEM MPV 9.9 9.3 - 12.4 fL INTERFACE SYSTEM 07/15/2007 5:04 PM CDT David Alba MD HEMATOLOGY ORDERABLES Edited INTERFACE SYSTEM Refer to clinic/hospital department * (ABNORMAL) COMPREHENSIVE METABOLIC PANEL (07/15/2007 5:04 PM CDT) SODIUM 133(L) 135 - 145 mmol/L INTERFACE SYSTEM POTASSIUM 3.8 3.5 - 4.9 mmol/L INTERFACE SYSTEM CHLORIDE 97 96 - 108 mmol/L INTERFACE SYSTEM GLUCOSE 92 65 - 99 mg/dL INTERFACE SYSTEM CREATININE 0.76 0.51 - 0.95 mg/dL INTERFACE SYSTEM CALCIUM 9.2 8.4 - 10.2 mg/dL INTERFACE SYSTEM ALKALINE PHOSPHATASE 148(H) 35 - 104 U/L INTERFACE SYSTEM AST 35(H) 12 - 32 U/L INTERFACE SYSTEM ALT 45(H) 0 - 31 U/L INTERFACE SYSTEM TOTAL PROTEIN 7.6 6.3 - 8.6 g/dL INTERFACE SYSTEM ALBUMIN 4.6 3.4 - 4.8 g/dL INTERFACE SYSTEM BILIRUBIN TOTAL 0.2 0.2 - 1.0 mg/dL INTERFACE SYSTEM BUN 15 6 - 20 mg/dL INTERFACE SYSTEM CO2 25 22 - 30 mmol/L INTERFACE SYSTEM GFR, >60 >=60 mL/min/1. 7 sq meter INTERFACE SYSTEM GFR >60 >=60 mL/min/1. 7 sq meter INTERFACE SYSTEM Comment: Estimated GFR rate interpretative information for both Americans and non- Americans is available on the [facility] Intranet at: [email or web address] Ad [email or web address] medical [email or web address] Select: Lab Policies and Procedures Select: Reference Ranges - GFR 07/15/2007 5:04 PM CDT David Alba MD CHEMISTRY ORDERABLES Edited INTERFACE SYSTEM Refer to clinic/hospital department documented in this encounter Visit Diagnoses Diagnosis Other chest pain- Primary documented in this encounter Care Teams Test Preparation Tutor Relationship Specialty Start Date End Date Jaswant Kirby MD PCP - General Family Practice 08/27/16 documented as of this encounter
--- OUTSIDE RECORDS SUMMARY | 2025-02-10 10:54 | XMS_ITS | Encounter Summary ---
Author Organization [facility] Address [address] [place] [address] Care Team Providers Care State Game Protector Name Role Phone Jaswant Kirby MD Primary Care Provider Unavail able Encounter Details Date Type Department Care Team (Late st Contact Info) Description 03/11/2008 Orders Only [facility] Family Medicine [facility] [address] [place] [address] [place] 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 ALTERNATIVE PHONE NUMBER: [phone] PHARMACY NUMBER: [phone] SECTION 1: REQUESTED ACTION roz 03/11/08 at 03:14 pm: MEDICATION REQUEST: MEDICATION REQUEST: Patient requests a refill. BP medication for 30 day supply. will need a 90 day supply mailed to pt, address confirmed. DOCTOR`S RESPONSE: sophy 03/11/08 at 03:25 pm call in a month and I mailed the other.PGD MEDICATIONS: DYAZIDE ORAL CAPSULE CONVENTIONAL 37.5-25 MG, 1 Two Times A Day, 180 Dispensed, 3 Fills, 90 Duration/Days Supply, status: CONTINUED, 03/11/2008. METOPROLOL TARTRATE ORAL TABLET 25 MG, QD, 90 Dispensed, 3 Fills, 90 Duration/Days Supply, status: CONTINUED, 03/11/2008. FINAL ACTION: bryanna 03/11/08 at 03:45 pm Spoke with patient 03/11/08 at 03:46 pm. Called pharmacy at 03/11/08 at 03:45 pm. Electronically Signed by: Yoly Blue on February documented in this encounter Plan of Treatment Not on file documented as of this encounter Visit Diagnoses Not on filedocumented in this encounter Care Teams State Game Protector Relationship Specialty Start Date End Date Jaswant Kirby MD PCP - General Family Practice 08/27/16 documented as of this encounter
--- OUTSIDE RECORDS SUMMARY | 2025-02-10 10:54 | XMS_ITS | Encounter Summary ---
Author Organization [facility] Address [address] [place] [address] Care Team Providers Care Microbiology Laboratory Manager Name Role Phone Jaswant Kirby MD Primary Care Provider Unavail able Encounter Details Date Type Department Care Team (Latest Contact Info) Description 06/01/2008 Outpatient Historical [facility] [place] [place] [address] 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
--- OUTSIDE RECORDS SUMMARY | 2025-02-10 10:54 | XMS_ITS | Encounter Summary ---
Author Organization [facility] Address [address] [place] [address] Care Team Providers Care Clinical Staff Anesthesiologist Name Role Phone Jaswant Kirby MD Primary Care Provider Unavail able Encounter Details Date Type Department Care Team (Latest Contact Info) Description 11/22/2008 Outpatient Historical [facility] Ludin Marquez MD NO ADDRESS ON FILE Other Screening Mammogram Social History Tobacco Use Types Packs/Day Years Used Date Smoking Tobacco: Never Alcohol Use Standard Drinks/Week Comments No 0 (1 standard drink = 0.6 oz pur e alcohol) Comments No Sex and Gender Information Value Date Recorded Sex Assigned at Not on file 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 Gender Identity Not on file Sexual Orientation Not on file documented as of this encounter Plan of Treatment Not on file documented as of this encounter Procedures Procedure Name Priority Date/Time Associated Diagnosis Comments MAMMO SCREEN BILAT W OR WO CAD Timed Study 11/22/2008 2:01 PM ANALYSIS MGR documented in this encounter Results * MAMMO DIGITAL SCREEN BILAT (11/22/2008 2:01 PM ANALYSIS MGR) Anatomical Region Laterality Modality Breast Bilateral Other 11/22/2008 2:01 PM ANALYSIS MGR Narrative 11/23/2008 3:52 PM ANALYSIS MGR [facility] [address], [place] [address] Admit Date: 11/22/2008 TAMMY MENDOZA Sex: F Admit Prov: LUDIN MARQUEZ Date: 1945 Primary Care Prov: MANSI RAMOS CMRN: [id number] [id number] Ordering Prov: LUDIN MARQUEZ Accession Number: [id number] Interpretation BILATERAL FULL FIELD DIGITAL SCREENING MAMMOGRAM WITH CAD. Date: 11/22/2008 History: Routine Screening. Technique: Full field digital craniocaudal and mediolateral oblique projections of both breasts were obtained. Computer aided diagnosis was performed. Comparison: July 2007, February 2006 and October 2004. Breast Parenchymal Composition: Almost entirely fat. Findings: No suspicious mass, suspicious microcalcifications, or architectural distortion in either breast is identified. Since the prior study, there has been no significant interval change. The computer aided diagnosis detects no significant abnormality. Overall Assessment: BI-RADS category 1: Negative. Recommendation: Annual mammography is recommended. Assessment BIRADS: 1-Negative Recommendation: Normal interval follow-up Dictated by: IVANNA ALEXANDER Electronically signed by: IVANNA ALEXANDER 11/23/2008 15:51 Transcribed: 11/23/2008 12:07 SDJ Procedure Note Ivanna Alexander - 11/23/2008 [facility] [address] [place], [place] [address] Admit Date: 11/22/2008 FARHATARSHTAMMY SIMONS Sex: F Admit Prov: LUDIN MARQUEZ Date:1945 Primary Care Prov: MANSI RAMOS CMRN: [id number] [id number] [facility] Ordering Prov: LUDIN MARQUEZ Kiran Interpretation BILATERAL FULL FIELD DIGITAL SCREENING MAMMOGRAM WITH CAD. Date: 11/22/2008 History: Routine Screening. Technique: Full field digital craniocaudal and mediolateral oblique projections of both breasts were obtained. Computer aided diagnosiswas performed. Comparison: July 2007, February 2006 and October 2004. Breast Parenchymal Composition: Almost entirely fat. Findings: No suspicious mass, suspicious microcalcifications, or architectural distortion in either breast is identified. Since theprior study, there has been no significant interval change. The computeraided diagnosis detects no significant abnormality. Overall Assessment: BI-RADS category 1: Negative. Recommendation: Annual mammography is recommended. Assessment BIRADS: 1-Negative Recommendation: Normal interval follow-up Dictated by: IVANNA ALEXANDER Electronically signed by: IVANNA ALEXANDER 11/23/2008 15:51 Transcribed: 11/23/2008 12:07 SDJ Ludin Marquez MD MAMMO ORDERABLES Final Result documented in this encounter Visit Diagnoses Diagnosis Other screening mammogram documented in this encounter Care Teams Clinical Staff Anesthesiologist Relationship Specialty Start Date End Date Jaswant Kirby MD PCP - General Family Practice 08/27/16 documented as of this encounter
--- OUTSIDE RECORDS SUMMARY | 2025-02-10 10:54 | XMS_ITS | Encounter Summary ---
Author Organization [facility] Address [address] [place] [address] Care Team Providers Care Furniture Assembler Name Role Phone Jaswant Kirby MD Primary Care Provider Unavail able Encounter Details Date Type Department Care Team (Late st Contact Info) Description 03/29/[address] [facility] Family Medicine [facility] [address] [facility] [address] [place] [address] [place] [address] 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
--- OUTSIDE RECORDS SUMMARY | 2025-02-10 10:54 | XMS_ITS | Encounter Summary ---
Author Organization [facility] Address [address] [place] [address] Care Team Providers Care Construction Secretary Name Role Phone Jaswant Kirby MD Primary Care Provider Unavail able Encounter Details Date Type Department Care Team (Late st Contact Info) Description 10/28/2007 Outpatient Historical [facility] Family Medicine [facility] [address] [facility] [address] [place] [address] [place] [address] 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
--- OUTSIDE RECORDS SUMMARY | 2025-02-10 10:54 | XMS_ITS | Encounter Summary ---
Author Organization [facility] Address [address] [facility] [address] [facility] Attn: [place] [address] Care Team Providers Care Tie Mill Operator Name Role Phone Jaswant Kirby MD Primary Care Provider Unavail able Encounter Details Date Type Department Care Team (Late st Contact Info) Description 07/15/2007 Outpatient Historical Hollis Samson MD 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
--- OUTSIDE RECORDS SUMMARY | 2025-02-10 10:54 | XMS_ITS | Encounter Summary ---
Author Organization [facility] Address [address] [facility] Attn: Epic [address] [place] [address] Care Team Providers Care Machine Dyer Name Role Phone Jaswant Kirby MD Primary Care Provider Unavail able Encounter Details Date Type Department Care Team (Latest Contact Info) Description 07/30/2007 [place] [address] [facility] [place] [address] Social History Tobacco Use Types Packs/Day Years Used Date Smoking Tobacco: Never Assessed Comments Unknown Sex and Gender Information Value Date Recorded Sex Assigned at Not on file 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 PCP: Grisel. WHO CALLED: Pharmacy called. PHARMACY NUMBER: [phone] SECTION 1: REQUESTED ACTION [email or web address] 07/30/07 at 10:39 am: MEDICATION REQUEST: Patient requests a refill. Traim/HCTZ DOCTOR`S RESPONSE: [email or web address] 07/30/07 at 10:48 am MEDICATIONS: Call in to Pharmacy DYAZIDE ORAL CAPSULE CONVENTIONAL 37.5-25 MG, 1 Two Times A Day, 180 Dispensed, 2 Fills, 90 Duration/Days Supply, status: CONTINUED, 07/30/2007. thanks, ECC. FINAL ACTION: [email or web address] 07/30/07 at 10:54 am Called pharmacy at 07/30/07 at 10:54 am. josue Electronically Signed by: Josue Franz on Monday, July 30, 2007 documented in this encounter Plan of Treatment Not on file documented as of this encounter Visit Diagnoses Not on filedocumented in this encounter Care Teams Machine Dyer Relationship Specialty Start Date End Date Jaswant Kirby MD PCP - General Family Practice 08/27/16 documented as of this encounter
--- OUTSIDE RECORDS SUMMARY | 2025-02-10 10:54 | XMS_ITS | Encounter Summary ---
Author Organization [facility] Address [address] [place] [address] Care Team Providers Care Service Car Operator Name Role Phone Jaswant Kirby MD Primary Care Provider Unavail able Encounter Details Date Type Department Care Team (Late st Contact Info) Description 10/28/2007 Outpatient Historical [facility] Family Medicine [facility] [address] [place] [address] [place] 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
--- OUTSIDE RECORDS SUMMARY | 2025-02-10 10:54 | XMS_ITS | Encounter Summary ---
Author Organization [facility] Address [address] [place] [address] Care Team Providers Care Salvage Mend Worker Name Role Phone Jaswant Kirby MD Primary Care Provider Unavail able Encounter Details Date Type Department Care Team (Late st Contact Info) Description 02/16/2008 Orders Only [facility] Medicine [facility] [address] [place] [address] Evette Yap MD NO ADDRESS ON FILE Social History Tobacco Use Types Packs/Day Years Used Date Smoking Tobacco: Never Assessed Comments Unknown Sex and Gender Information Value Date Recorded Sex Assigned at Not on file Legal 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 PCP: Danis. LYNN PHONE NUMBER: [phone] WHO CALLED: Patient called. PHARMACY NUMBER: [phone] SECTION 1: REQUESTED ACTION maureen 02/16/08 at 02:29 pm: MEDICATION REQUEST: Patient requests a refill. xanax .5mg DOCTOR`S RESPONSE: kaitlynn 02/16/08 at 02:55 pm MEDICATIONS: Call in to Pharmacy XANAX ORAL TABLET 0.5 MG, 1 qd prn, 30 Dispensed, status: CONTINUED, 02/16/2008. FINAL ACTION: warncnighat 02/16/08 at 04:38 pm Spoke with patient 02/16/08 at 04:38 pm. Called pharmacy at 02/16/08 at 04:38 pm. Electronically Signed by: India Saab on Saturday, February 16, 2008 documented in this encounter Plan of Treatment Not on file documented as of this encounter Visit Diagnoses Not on filedocumented in this encounter Care Teams Salvage Mend Worker Relationship Specialty Start Date End Date Jaswant Kirby MD PCP - General Family Practice 08/27/16 documented as of this encounter
--- OUTSIDE RECORDS SUMMARY | 2025-02-10 10:54 | XMS_ITS | Encounter Summary ---
Author Organization [facility] Address [address] [place] [address] Care Team Providers Care Research Editor Name Role Phone Jaswant Kirby MD Primary Care Provider Unavail able Encounter Details Date Type Department Care Team (Late st Contact Info) Description 01/01/2008 Orders Only [facility] Family Medicine [facility] [address] [place] [address] [place] 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
--- OUTSIDE RECORDS SUMMARY | 2025-02-10 10:54 | XMS_ITS | Encounter Summary ---
Author Organization [facility] Address 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 Gender Identity Not on file Sexual Orientation Not on file documented as of this encounter Plan of Treatment Not on file documented as of this encounter Procedures Procedure Name Priority Date/Time Associated Diagnosis Comments HEPATITIS C AB W/CONFIRMATION Routine 07/31/2007 10:25 AM CDT JONE WITH TITER Routine 07/31/2007 10:25 AM CDT HEPATITIS B SURFACE ANTIGEN Routine 07/31/2007 10:25 AM CDT TRANSGLUTAMINASE IGA ANTIBODY Routine 07/31/2007 10:25 AM CDT SMOOTH MUSCLE ANTIBODY Routine 7 10:25 AM CDT MITOCHONDRIAL ANTIBODY Routine 7 10:25 AM CDT CERULOPLASMIN Routine 07/31/2007 10:25 AM CDT ALPHA 1 ANTITRYPSIN PHENOTYPE Routine 07/31/2007 10:25 AM CDT IGM Routine 07/31/2007 10:25 AM CDT FERRITIN Routine 07/31/2007 10:25 AM CDT HEPATIC FUNCTION PANEL Routine 7 10:25 AM CDT documented in this encounter Results * ALPHA 1 ANTITRYPSIN PHENOTYPE (07/31/2007 10:25 AM CDT) [facility] ALPHA 1 ANTITRYPSIN PHENOTYPE INTERFACE SYSTEM Comment: RESULT: NEGATIVE (MM) INTERPRETATION: Molecular analysis indicates that this patient does not carry either the Z or the S allele in the brual-4-qhtwoharddl (PI) gene. The absence of the Z and the S allele, along with a normal xbjcs-2-sfrklrmfedl serum level, suggests that this individual does not have onrso-5-drretqvohfh deficiency. Please note that this negative result does not rule out the presence of other mutations within the PI gene that may cause rggot-9-fuarzwhwclt deficiency. These results, therefore, should be interpreted in the context of the clinical presentation and other laboratory tests. Laboratory results and submitted clinical information reviewed by Monique Estes, Ph.D., [facility] [facility]. Bouhv-5-kcxjpbphwkm deficiency is a relatively common autosomal recessive condition. The two most common deficiency alleles in the vvtvv-2-bgncprbksyl gene (protease inhibitor locus, PI) are designated PI*Z and PI*S, and the normal allele is designated PI*M. The PI*Z/PI*Z, PI*S/PI*Z, and PI*S/PI*S genotypes associated with decreased serum PI levels that are equivalent to approximately 10-20%, 35-40%, and 50-60% of normal, respectively. The PI*Z/PI*Z and PI*S/PI*Z genotypes are reported to be associated with an increased risk of liver disease in childhood, and chronic obstructive pulmonary disease (COPD) and emphysema in adult life. The PI*M/PI*Z, and PI*M/PI*S genotypes are also associated with decreased serum PI levels but these levels, and the PI levels associated with the PI*S/PI*S genotype, are apparently adequate to protect the lungs in the vast majority of individuals. Individuals with the PI*M/PI*Z genotype may have decreased pulmonary function, and may be at increased risk for COPD, especially if they smoke. It should be noted that serum motyw-8-qlsrxareijr levels can be induced by a wide variety of conditions that include , infection, numerous inflammatory conditions, cancer, and liver disease. Levels of wmybl-8-ydjdqgvofuz may be reduced by other conditions. Therefore, immunological and functional determinations of serum qadpb-3-zfymqawxlbn levels may not correlate with the individual's PI genotype. The PI*Z, PI*S, and PI*M alleles are detected by multiplex polymerase chain reaction (PCR) amplification of specific regions of the PI gene, followed by restriction enzyme digestion and capillary electrophoresis. This assay does not test for the presence of other mutations within the rcksq-6-rgiuapmaczz gene or non-genetic causes of mpeas-4-yclzjpmyvxj deficiency. Since genetic variation and other factors can affect the accuracy of direct mutation testing, these results should be interpreted in light of clinical and familial data. This test was developed and its performance characteristics were determined by [facility]. Performance characteristics refer to the analytical performance of the test.See Result Comment 07/31/2007 10:2 5 AM CDT Joey Sosa MD CHEMISTRY ORDERABLES Reji javier INTERFACE SYSTEM Refer to clinic/hospital department * TRANSGLUTAMINASE IGA ANTIBODY (07/31/2007 10:25 AM CDT) Pathologist [facility] TRANSGLUTAMINASE IGA AB <3 <5 U/mL INTERFACE SYSTEM Comment: Reference range: <5 U/mL Negative 5-8 U/mL Equivocal >8 U/mL Positive Lab test performed by: [facility] [id number] [place], [place] ANDREW FUENTES MD 07/31/2007 10:2 5 AM CDT Joey Sosa MD CHEMISTRY ORDERABLES Reji javier Performing Organization Address [facility] de Phone Number INTERFACE SYSTEM Refer to clinic/hospital department * SMOOTH MUSCLE ANTIBODY (07/31/2007 10:25 AM CDT) SMOOTH MUSCLE AB (ACTIN) IGG <20 Units INTERFACE SYSTEM Comment: Reference Range: <20 NEGATIVE 20-30 WEAK POSITIVE >30 HIGH POSITIVE Anti-smooth muscle antibodies (Anti-SMA) were previously tested for by indirect immunofluorescence (IF) using rat stomach as antigen. The smooth muscle in these sections contains numerous proteins, including: microfilaments (which contain F-actin), intermediate filaments, and microtubules. Of these proteins, F-actin has the closest association with autoimmune hepatitis type 1 (AIH 1). To enhance our testing specificity for AIH type 1, immunofluorescence has been replaced by an TRACIE based assay to purified F-actin. IgG antibodies to F-actin are present in approximately 75% of patients with AIH type 1, approximately 65% of patients with autoimmune cholangitis, approximately 30% of patients with primary biliary cirrhosis (PBC), and approximately 2% of healthy controls. High values are closely correlated with AIH type 1. Lab test performed by: [facility] [id number] [employer], [place] [address]Cecy PONCE MD 07/31/2007 10:2 5 AM CDT Joey Sosa MD CHEMISTRY ORDERABLES COM Edited Performing Organization Address [facility] Co de Phone Number INTERFACE SYSTEM Refer to clinic/hospital department * MITOCHONDRIAL ANTIBODY (07/31/2007 10:25 AM CDT) MITOCHONDRIAL AB NEGATIVE INT ERFACE SYSTEM Comment: Reference Range: NEGATIVE Lab test performed by: [facility] [id number] [employer] [facility]ITAL[facility] [place] [address] Shelby PONCE MD MITOCHONDRIAL TITER Not Performed INTERFACE SYSTEM Comment: Reference Range: <1:20 TNP-Screening test negative. Titer not performed. Lab test performed by: [facility] [id number] [place] [address] Shelby PONCE MD 07/31/2007 10:2 5 AM CDT Joey Sosa MD CHEMISTRY ORDERABLES Reji javier Performing Organization Address City/[facility] Co de Phone Number INTERFACE SYSTEM Refer to clinic/hospital department * HEPATITIS C AB WITH CONFIRMATION BY RIBA (07/31/2007 10:25 AM CDT) HEPATITIS C AB NON-REACTI VE NON-REACT CRISTHIAN INTERFACE SYSTEM SIGNAL TO CUT OFF 0.02 <1.00 INTERFACE SYSTEM Comment: Lab test performed by: [facility] [place] [id number] [address] [employer] [place] [id number] GABRIELLE GARRETT MD 07/31/2007 10:2 5 AM CDT Joey Sosa MD CHEMISTRY ORDERABLES Reji javier Performing Organization Address [facility] Phone Number INTERFACE SYSTEM Refer to clinic/hospital department * HEPATITIS B SURFACE ANTIGEN (07/31/2007 10:25 AM CDT) HEPATITIS B SURFACE AG NON-REACTI VE NON-REACT CRISTHIAN INTERFACE SYSTEM Comment: Lab test performed by: [facility] VERONICA[facility] [id number] [address]ART[employer] MediaMarioSuper[employer] [address] GABRIELLE GARRETT MD 07/31/2007 10:2 5 AM CDT Joey Sosa MD CHEMISTRY ORDERABLES Reji javier Performing Organization Address City/[facility] Co mo Phone Number INTERFACE SYSTEM Refer to clinic/hospital department * JONE WITH TITER (07/31/2007 10:25 AM CDT) JONE SCREEN NEGATIVE NEGATIVE INTERFACE SYSTEM Comment: Lab test performed by: [facility] [place] [id number] [address] [employer] [place] [address] GABRIELLE GARRETT MD 07/31/2007 10:2 5 AM CDT Joey Sosa MD CHEMISTRY ORDERABLES Reji javier Performing Organization Address [facility] Phone Number INTERFACE SYSTEM Refer to clinic/hospital department * IGM (07/31/2007 10:25 AM CDT) IGM 173.3 37.0 - 286.0 mg/dL INTERFACE SYSTEM 07/31/2007 10:2 5 AM CDT Joey Sosa MD CHEMISTRY ORDERABLES Reji javier Performing Organization Address [facility] Phone Number INTERFACE SYSTEM Refer to clinic/hospital department * CERULOPLASMIN (07/31/2007 10:25 AM CDT) CERULOPLASMIN 18 18 - 45 mg/dL INTERFACE SYSTEM 07/31/2007 10:2 5 AM CDT Joey Sosa MD CHEMISTRY ORDERABLES Reji javier Performing Organization Address [facility] Phone Number INTERFACE SYSTEM Refer to clinic/hospital department * FERRITIN (07/31/2007 10:25 AM CDT) FERRITIN 28 13 - 150 ng/mL INTERFACE SYSTEM 07/31/2007 10:2 5 AM CDT Joey Sosa MD CHEMISTRY ORDERABLES Reji javier Performing Organization Address [facility] Phone Number INTERFACE SYSTEM Refer to clinic/hospital department * (ABNORMAL) HEPATIC FUNCTION PANEL (07/31/2007 10:25 AM CDT) ALKALINE PHOSPHATASE 186(H) 35 - 104 U/L INTERFACE SYSTEM AST 38(H) 12 - 32 U/L INTERFACE SYSTEM ALT 51(H) 0 - 31 U/L INTERFACE SYSTEM TOTAL PROTEIN 8.1 6.3 - 8.6 g/dL INTERFACE SYSTEM ALBUMIN 4.8 3.4 - 4.8 g/dL INTERFACE SYSTEM BILIRUBIN TOTAL 0.2 0.2 - 1.0 mg/dL INTERFACE SYSTEM BILIRUBIN DIRECT 0.1 0.0 - 0.3 mg/dL INTERFACE SYSTEM 07/31/2007 10:2 5 AM CDT Joey Sosa MD CHEMISTRY ORDERABLES Reji javier INTERFACE SYSTEM Refer to clinic/hospital department documented in this encounter Visit Diagnoses Diagnosis Nonspecific elevation of levels of transaminase or lactic acid dehydrogenase (LDH)- Primary documented in this encounter Care Teams Animal Trainer Supervisor Relationship Specialty Start Date End Date Jaswant Kirby MD PCP - General Family Practice 08/27/16 documented as of this encounter
--- OUTSIDE RECORDS SUMMARY | 2025-02-10 10:54 | XMS_ITS | Encounter Summary ---
Author Organization [facility] Address 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 Gender Identity Not on file Sexual Orientation Not on file documented as of this encounter Plan of Treatment Not on file documented as of this encounter Procedures Procedure Name Priority Date/Time Associated Diagnosis Comments HEPATIC FUNCTION PANEL Routine 09/11/2007 9:41 AM CDT documented in this encounter Results * (ABNORMAL) HEPATIC FUNCTION PANEL (09/11/2007 9:41 AM CDT) ALKALINE PHOSPHATASE 204(H) 35 - 104 U/L INTERFACE SYSTEM AST 47(H) 12 - 32 U/L INTERFACE SYSTEM ALT 77(H) 0 - 31 U/L INTERFACE SYSTEM TOTAL PROTEIN 7.7 6.3 - 8.6 g/dL INTERFACE SYSTEM ALBUMIN 4.6 3.4 - 4.8 g/dL INTERFACE SYSTEM BILIRUBIN TOTAL 0.3 0.2 - 1.0 mg/dL INTERFACE SYSTEM BILIRUBIN DIRECT 0.1 0.0 - 0.3 mg/dL INTERFACE SYSTEM 09/11/2007 9:41 AM CDT Joey Sosa MD CHEMISTRY ORDERABLES Reji javier INTERFACE SYSTEM Refer to clinic/hospital department documented in this encounter Visit Diagnoses Diagnosis Nonspecific elevation of levels of transaminase or lactic acid dehydrogenase (LDH)- Primary documented in this encounter Care Teams Director Of Public Works Relationship Specialty Start Date End Date Jaswant Kirby MD PCP - General Family Practice 08/27/16 documented as of this encounter
--- OUTSIDE RECORDS SUMMARY | 2025-02-10 10:54 | XMS_ITS | Encounter Summary ---
Author Organization [facility] Address [address] [place] [address] Care Team Providers Care Fire Prevention Bureau Captain Name Role Phone Jaswant Kirby MD Primary Care Provider Unavail able Encounter Details Date Type Department Care Team (Late st Contact Info) Description 03/25/2007 Orders Only [facility] Family Medicine [facility] [address] [place] [address] [place] [address] 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 PCP: tyshawn. ALTERNATIVE PHONE NUMBER: [phone] WHO CALLED: Patient called. SECTION 1: REQUESTED ACTION bryanna 03/25/07 at 02:40 pm: please mail to address in chart MEDICATION REQUEST: 90 day supply Patient requests a refill. jd DOCTOR`S RESPONSE: sophy 03/25/07 at 04:18 pm MEDICATIONS: Call in to Pharmacy LEXAPRO ORAL TABLET 20 MG, 1 Every Day, 90 Dispensed, 3 Fills, 90 Duration/Days Supply, status: CONTINUED, 03/25/2007. PGD FINAL ACTION: mignon 03/26/07 at 12:46 pm Spoke with patient 03/26/07 at 12:46 pm. documented in this encounter Plan of Treatment Not on file documented as of this encounter Visit Diagnoses Not on filedocumented in this encounter Care Teams Fire Prevention Bureau Captain Relationship Specialty Start Date End Date Jaswant Kirby MD PCP - General Family Practice 08/27/16 documented as of this encounter
--- OUTSIDE RECORDS SUMMARY | 2025-02-10 10:54 | XMS_ITS | Encounter Summary ---
Author Organization [facility] Address [address] [place] [address] Care Team Providers Care Is Consultant Name Role Phone Jaswant Kirby MD Primary Care Provider Unavail able Encounter Details Date Type Department Care Team (Latest Contact Info) Description 04/16/2007 Outpatient Historical [facility] Family Medicine [place] [address] [place] [address] [place] 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 Gender Identity Not on file Sexual Orientation Not on file documented as of this encounter Plan of Treatment Not on file documented as of this encounter Procedures Procedure Name Priority Date/Time Associated Diagnosis Comments COMPREHENSIVE METABOLIC PANEL Routine 04/16/2007 2:33 PM CDT TSH WITH REFLEX FT4 AND FT3 Routine 04/16/2007 2:30 PM CDT CBC WITH DIFFERENTIAL Routine 04/16/2007 2:30 PM CDT CBC WITH DIFFERENTIAL Routine 04/16/2007 2:30 PM CDT documented in this encounter Results * (ABNORMAL) COMPREHENSIVE METABOLIC PANEL (04/16/2007 2:33 PM CDT) GLUCOSE 86 65 - 99 mg/dL INTERFACE SYSTEM CREATININE 0.68 0.51 - 0.95 mg/dL INTERFACE SYSTEM CALCIUM 9.2 8.4 - 10.2 mg/dL INTERFACE SYSTEM ALKALINE PHOSPHATASE 129(H) 35 - 104 U/L INTERFACE SYSTEM AST 17 12 - 32 U/L INTERFACE SYSTEM ALT 18 0 - 31 U/L INTERFACE SYSTEM TOTAL PROTEIN 7.6 6.3 - 8.6 g/dL INTERFACE SYSTEM ALBUMIN 4.6 3.4 - 4.8 g/dL INTERFACE SYSTEM BILIRUBIN TOTAL 0.2 0.2 - 1.0 mg/dL INTERFACE SYSTEM BUN 15 6 - 20 mg/dL INTERFACE SYSTEM SODIUM 138 135 - 145 mmol/L INTERFACE SYSTEM POTASSIUM 3.9 3.5 - 4.9 mmol/L INTERFACE SYSTEM CHLORIDE 98 96 - 108 mmol/L INTERFACE SYSTEM CO2 27 22 - 30 mmol/L INTERFACE SYSTEM GFR, >60 >=60 mL/min/1. 7 sq meter INTERFACE SYSTEM GFR >60 >=60 mL/min/1. 7 sq meter INTERFACE SYSTEM Comment: Estimated GFR rate interpretative information for both Americans and non- Americans is available on the [facility] Intranet at: [email or web address] Select: Lab Policies and Procedures Select: Reference Ranges - GFR 04/16/2007 2:33 PM CDT Kobe Douglass MD CHEMISTRY ORDERABLES Edited INTERFACE SYSTEM Refer to clinic/hospital department * CBC WITH DIFFERENTIAL (04/16/2007 2:30 PM CDT) NEUTROPHILS 53 45 - 70 % INTERFAC E SYSTEM LYMPHOCYTES 37 16 - 45 % INTERFAC E SYSTEM MONOCYTES 7 3 - 13 % INTERFACE SYSTEM EOSINOPHILS 2 0 - 7 % INTERFAC E SYSTEM BASOPHILS 1 0 - 2 % INTERFACE SYSTEM NEUTROPHIL ABSOLUTE 6.81 1.90 - 7.00 K/uL INTERFACE SYSTEM LYMPHOCYTE ABSOLUTE 4.78 0.70 - 4.50 K/uL INTERFACE SYSTEM MONOCYTE ABSOLUTE 0.92 0.10 - 1.30 K/uL INTERFACE SYSTEM EOSINOPHIL ABSOLUTE 0.28 0.00 - 0.70 K/uL INTERFACE SYSTEM BASOPHILS ABSOLUTE 0.09 0.00 - 0.20 K/uL INTERFACE SYSTEM 04/16/2007 2:30 PM CDT Kobe Douglass MD HEMATOLOGY ORDERABLES Final Res ult Performing Organization Address [facility] Co de Phone Number INTERFACE SYSTEM Refer to clinic/hospital department * (ABNORMAL) CBC WITH DIFFERENTIAL (04/16/2007 2:30 PM CDT) WBC 12.9(H) 4.0 - 9.8 K/uL INTERFACE SYSTEM RBC 4.36 3.90 - 4.90 M/uL INTERFACE SYSTEM HEMOGLOBIN 12.7 11.8 - 14.8 g/dL INTERFACE SYSTEM HEMATOCRIT 38.2 35.5 - 44.0 % INTERFACE SYSTEM MCV 87.6 82.0 - 99.0 fL INTERFACE SYSTEM MCH 29.1 27.2 - 32.6 pg INTERFACE SYSTEM MCHC 33.2 31.5 - 35.5 % INTERFACE SYSTEM RDW 13.5 11.5 - 14.5 % INTERFACE SYSTEM RDW-STDEV 43.1 37.1 - 48.7 fL INTERFACE SYSTEM PLATELETS 526(H) 140 - 350 K/uL INTERFACE SYSTEM MPV 10.6 9.3 - 12.4 fL INTERFACE SYSTEM 04/16/2007 2:30 PM CDT Kobe Douglass MD HEMATOLOGY ORDERABLES Edited Performing Organization Address [facility] Phone Number INTERFACE SYSTEM Refer to clinic/hospital department * TSH WITH REFLEX FT4 AND FT3 (04/16/2007 2:30 PM CDT) TSH 1.64 0.27 - 4.20 uU/mL INTERFACE SYSTEM 04/16/2007 2:30 PM CDT Kobe Douglass MD CHEMISTRY ORDERABLES Edited Performing Organization Address [facility] Co de Phone Number INTERFACE SYSTEM Refer to clinic/hospital department documented in this encounter Visit Diagnoses Diagnosis Other malaise and fatigue- Primary documented in this encounter Care Teams Is Consultant Relationship Specialty Start Date End Date Jaswant Kirby MD PCP - General Family Practice 08/27/16 documented as of this encounter
--- OUTSIDE RECORDS SUMMARY | 2025-02-10 10:54 | XMS_ITS | Encounter Summary ---
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 BLOOD PRESSURE: 112/60. Right Arm Sitting PULSE: 60. Right Radial, Regular TEMPERATURE: 98.1??f. Oral ALLERGIES: Allergies are as listed. CHIEF COMPLAINT Here for follow up evaluation of a prior diagnosis. Spider bite. [facility] HISTORY: Pt here for follow of brown recluse spider bite versus burn to left upper arm. Area is markedly improved. She continues to use silvadene after cleansing and has completed antibiotics of Dicloxacillin. The area itches worse at night but the Atrax is helping. She is here for check up. She also unfortunately just went to the of her husbands brother who unexpectedly afterbeing diagnosed with esophageal cancer. She states that he had looked recently as though he had been getting better but things changed suddenly over the last week. She has been coping with this as well as her husbands recent job change as discussed in a previous visit. She is requesting a RF on herXanax which she take infrequently to combat anxiety. She has always used the medication responsibly. She has dealt with migraine headaches in the past which are relieved with Fioricet. She is requesting a RF today. Her headaches are infrequent occurring less than 1 time weekly. She has had her eyes checked this year. ROS: GENERAL: Normal activity and energy level, no change in appetite. No major weight gain or loss. No malaise, chills, fever, diaphoresis. Patient's history reviewed; no changes. SOCIAL HISTORY: TOBACCO USE: Has no significant smoking history. PHYSICAL EXAMINATION: CONSTITUTIONAL: GENERAL APPEARANCE: Healthy appearing patient in no distress. SKIN: RASH/LESION #1 LOCATION: Left lateral upper arm. CHARACTERISTICS: The lesion is erythematous. Circumferential erythema resolved. Area at center raised, dry and crusting. Healing well. No necrotic areas. No superficial spreading. LESION LOCATION AND SIZE The size and location of the benign skin lesion were:. ASSESSMENT Consistent with brown recluse spider bite. NEUROLOGIC: CRANIAL NERVES: acid operator II-XII grossly intact. PSYCHIATRIC: Judgment appropriate. Oriented. Normal memory. Mood and affect appropriate. ASSESSMENT/PLAN: 346.90-MIGRAINE HEADACHE RF Fioricet. HAs under control. No additional suppression at this time. BPalso at goal. MEDICATIONS: FIORICET ORAL TABLET 50-325-40 MG, 1-2 tabs q 6 hours prn headache, 180 Dispensed, 2 Fills, status:NEW PRESCRIPTION, 03/05/2007. 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 Area looks much better, reconsider brown recluse spider bite diagnosis, looks today more like a resolving burn. Continue current therapy. 300.00-ANXIETY RF Xanax, pt to use sparingly and continue with routine follow up as indicated by PCP for RFs. Pt coping with recent in the family. Exhibits good support, offered continued provider support as needed. MEDICATIONS: XANAX ORAL TABLET 0.5 MG, 1 qd prn, 30 Dispensed, 2 Fills, status: CONTINUED, 03/05/2007. RETURN VISIT: Patient is to return on an as needed basis. 03/07/07 02:27 p Electronically signed by Ana Ferguson MD. TEACHING PHYSICIAN COMMENTS: I have reviewed the resident's note and I agree with the resident's evaluation and plan. Electronically Signed by: Kobe Douglass MD on Monday, March 12, 2007 documented in this encounter Plan of Treatment Not on file documented as of this encounter Visit Diagnoses Not on filedocumented in this encounter Care Teams Lead Etl Developer Relationship Specialty Start Date End Date Jaswant Kirby MD PCP - General Family Practice 08/27/16 documented as of this encounter
--- OUTSIDE RECORDS SUMMARY | 2025-02-10 10:54 | XMS_ITS | Encounter Summary ---
Author Organization [facility] Address [address] [place] [address] Care Team Providers Care Strategy Lead Name Role Phone Jaswant Kirby MD Primary Care Provider Unavail able Encounter Details Date Type Department Care Team (Late st Contact Info) Description 04/16/2007 Orders Only [facility] Family Medicine [facility] [address] [place] [address] [place] 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 Right Radial, Regular WEIGHT: 198lbs. BLOOD PRESSURE: 108/74. Right Arm Sitting ALLERGIES: Allergies are as listed. CHIEF COMPLAINT Patient complains of. spider bite,ibs/ est/ sjl HISTORY: left upper arm saw Dr Ferguson and Dr Cassidy had ulcer and was on antibiotic and silvadene still has occasional itch and pain acid reflux is worst; for past 6 weeks denies stress increase going to [employer] feels more bloated having intermittent diarrhea and constipation Rx: Nexium and ranitidine had a stomach ulcer once before using celebrex occasionally once a day sometimes has diarrhea alternating with constipation had colon exam in 2005 caffeine: 2 per day alcohol: 0 feeling very fatigued; says mood ok HISTORY: 401.1-HYPERTENSION ESSENTIAL BENIGN The patient denies chest pain, shortness of breath, dyspnea on exertion, pedal edema, or headache. 493.90-ASTHMA UNSPECIFIED The asthma has improved. CURRENT MEDICATION LIST: MULTI-VITAMIN ORAL TABLET, 1 Every Morning ASPIRIN ORAL TABLET ENTERIC COATED 81 MG, 1 Every Morning LIPITOR ORAL TABLET 40 MG, QD ALBUTEROL INHALATION AEROSOL SOLUTION 90 MCG/ACT, 1-2 INHAL Q 4 HOURS NEEDED CELEBREX ORAL CAPSULE CONVENTIONAL 200 MG, 1 Day prn DYAZIDE ORAL CAPSULE CONVENTIONAL 37.5-25 MG, 1 Two Times A Day NEXIUM ORAL CAPSULE DELAYED RELEASE 40 MG, 1 Every Day METOPROLOL TARTRATE ORAL TABLET 25 MG, QD SHELLY ORAL TABLET 180 MG, 1 Every Morning ADVAIR DISKUS INHALATION MISCELLANEOUS 500-50 MCG/DOSE, 1 puff inhaled BID XANAX ORAL TABLET 0.5 MG, 1 qd prn FIORICET ORAL TABLET 50-325-40 MG, 1-2 tabs q 6 hours prn headache ASTELIN NASAL SOLUTION 137 MCG/SPRAY, 2 sprays each nostril BID LEXAPRO ORAL TABLET 20 MG, 1 Every Day ROS: GENERAL: See HISTORY OF PRESENT ILLNESS. CARDIAC: No chest pain, palpitations, orthopnea, dyspnea on exertion, or paroxysmal nocturnal dyspnea. RESPIRATORY: No dyspnea, cough, hemoptysis or wheezing. PHYSICAL EXAMINATION: CONSTITUTIONAL: GENERAL APPEARANCE: Healthy appearing patient in no distress. RESPIRATORY: Clear to auscultation and percussion. Normal respiratory effort. CARDIOVASCULAR: CARDIAC: Regular rhythm. No murmurs, rubs, or gallops. ARTERIAL: Normal pedal pulses. EDEMA/VARICOSITIES OF EXTREMITIES: No edema. GASTROINTESTINAL: ABDOMEN: Soft, non-tender, without masses. Bowel sounds active. LIVER/SPLEEN/KIDNEY: No hepatosplenomegaly, tenderness or nodularity. Kidneys not palpable. SKIN: SKIN: dry 1 cm patch upper left arm PSYCHIATRIC: Judgment appropriate. Oriented. Normal memory. Mood and affect appropriate. ASSESSMENT/PLAN: 401.1-HYPERTENSION ESSENTIAL BENIGN ASSESSMENT: The blood pressure remains satisfactory. Will not change medication, continue to monitor for complications. The patient was encouraged to follow a low salt diet. Regular exercise was encouraged. LAB ORDERS: Order number: [id number] Test Ordered: COMPREHENSIVE METABOLIC PANEL & GFR 1112 493.90-ASTHMA UNSPECIFIED ASSESSMENT: The asthma has improved. No complications noted from the medication presently being used. 530.81-GASTROESOPHAGEAL REFLUX (GERD) ASSESSMENT: The patient's reflux esophagitis has worsened. Will increase medication dosage.to BID and referred for upper endoscopy 780.79-FATIGUE ASSESSMENT: etiology unclear; I'll check lab. LAB ORDERS: Order number: [id number] Test Ordered: CBC W/ DIFFERENTIAL 3150 Order number: [id number] Test Ordered: TSH (REFLEX FREE T4/FREE T3) 1727 V58.69-GROUP LEADER SEMICONDUCTOR TESTING USE OF OTHER MEDICATION(S) LAB ORDERS: SPECIALTY REFERRAL: GASTROENTEROLOGY Dr Barrett Hernandez ph: [phone] fax: [phone]. RETURN VISIT: Patient instructed to return in 1 month.HMV Electronically Signed by: Kobe Douglass MD on March documented in this encounter Plan of Treatment Not on file documented as of this encounter Visit Diagnoses Not on filedocumented in this encounter Care Teams Strategy Lead Relationship Specialty Start Date End Date Jaswant Kirby MD PCP - General Family Practice 08/27/16 documented as of this encounter
--- OUTSIDE RECORDS SUMMARY | 2025-02-10 10:54 | XMS_ITS | Encounter Summary ---
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 PULSE: 80. Right Radial, Regular BLOOD PRESSURE: 118/70. Right Arm Sitting ALLERGIES: No known drug allergies. CHIEF COMPLAINT Requested evaluation for the problem listed below. burn/ or bite feels like it is worse. est/sjl HISTORY: 61 y/o seen in office one day prior believing she had sustained a burn on her left upper arm after falling asleep on a heating pad. Pt has been putting silvadene on it and dry dressing thereafter but today she reports that she is having intense itching over the area and it looks a little worse. She wonders if she could have a spider bite. She walks her dogs at night [place] She reports having swollen lymph nodes now under her left arm pit and just feeling not well, overall. the itching is really bothering me the most. CURRENT MEDICATION LIST: MULTI-VITAMIN ORAL TABLET, 1 Every Morning ASPIRIN ORAL TABLET ENTERIC COATED 81 MG, 1 Every Morning ASTELIN NASAL SOLUTION 137 MCG/SPRAY, 2 sprays each nostril BID FLEXERIL ORAL TABLET 10 MG, 1 Three Times A Day, As Needed LIPITOR ORAL TABLET 40 MG, QD QUININE SULFATE ORAL CAPSULE CONVENTIONAL 325 MG, QHS prn ALBUTEROL INHALATION AEROSOL SOLUTION 90 MCG/ACT, 1-2 INHAL Q 4 HOURS NEEDED CELEBREX ORAL CAPSULE CONVENTIONAL 200 MG, 1 Two Times A Day DELSYM ORAL LIQUID CONTROLLED RELEASE 30 MG/5ML, 1-2 tsp po QID prn cough TESSALON ORAL CAPSULE CONVENTIONAL 200 MG, TID DYAZIDE ORAL CAPSULE CONVENTIONAL 37.5-25 MG, 1 Two Times A Day NEXIUM ORAL CAPSULE DELAYED RELEASE 40 MG, 1 Every Day LEXAPRO ORAL TABLET 20 MG, 1 Every Day METOPROLOL TARTRATE ORAL TABLET 25 MG, QD XANAX ORAL TABLET 0.5 MG, 1 qd prn SHELLY ORAL TABLET 180 MG, 1 Every Morning DICLOXACILLIN SODIUM ORAL CAPSULE CONVENTIONAL 500 MG, 1 tab qid SILVADENE EXTERNAL CREAME 1 %, apply to arm bid ADVAIR DISKUS INHALATION MISCELLANEOUS 500-50 MCG/DOSE, 1 puff inhaled BID CURRENT ALLERGY LIST: AUGMENTIN CODEINE ERYTHROMYCIN SULFA DRUGS TETRACYCLINE ROS: GENERAL: See HISTORY OF PRESENT ILLNESS. CARDIAC: No chest pain, palpitations, orthopnea, dyspnea on exertion, or paroxysmal nocturnal dyspnea. RESPIRATORY: No dyspnea, cough, hemoptysis or wheezing. SKIN/BREAST/CHEST: See HISTORY OF PRESENT ILLNESS. SOCIAL HISTORY: TOBACCO USE: Has no significant smoking history. PHYSICAL EXAMINATION: CONSTITUTIONAL: GENERAL APPEARANCE: Healthy appearing patient in no distress. LYMPHATICS: MULTIPLE MOBILE, TENDER, ENLARGED LEFT AXILLARY LYMPH NODES NOTED. SKIN: RASH/LESION #1 LOCATION: Left lateral upper arm. CHARACTERISTICS: The lesion is erythematous. Circumferential erythema with central clearing and ecchymosis (black and blue spots) also near the center. LESION LOCATION AND SIZE The size and location of the benign skin lesion were:. ASSESSMENT Consistent with brown recluse spider bite. PSYCHIATRIC: ANXIOUS. 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 Reviewed images online of similar spider bites. Educational handout provided. Pt instructed that this will likelytake weeks to resolve. Area marked today in office if area of superficial cellulitis evolves beyondmarkings pt to tamie or come in. Continue antibiotics given h/o abnormal fasting glucose. Add Anaproxfor pain and hydroxyzine for intense itching. Warnings given regarding driving w/meds. This may take weeks to resolve and informed pt accordingly. MEDICATIONS: HYDROXYZINE HCL ORAL TABLET 25 MG, Q 6 hours as needed, do not take if planning on driving, 60 Dispensed, 1 Fills, status: NEW PRESCRIPTION, 02/21/2007. ANAPROX DS ORAL TABLET 550 MG, BID, 10 Dispensed, status: NEW PRESCRIPTION, 02/21/2007. DICLOXACILLIN SODIUM ORAL CAPSULE CONVENTIONAL 500 MG TABLETS, 1 tab qid, 28 Dispensed, 7 Duration/Days Supply, status: NEW PRESCRIPTION, 02/20/2007. 682.3-OTHER CELLULITIS AND ABSCESS RETURN VISIT: Instructed to call if not improving. 02/23/07 10:27 p Electronically signed by Ana Ferguson MD. TEACHING PHYSICIAN COMMENTS: I have reviewed the resident's note and I agree with the resident's evaluation and plan. [facility] [place] Electronically Signed by: Mesha Delcid MD on Sunday, March 04, 2007 documented in this encounter Plan of Treatment Not on file documented as of this encounter Visit Diagnoses Not on filedocumented in this encounter Care Teams Co Pilot Relationship Specialty Start Date End Date Jaswant Kirby MD PCP - General Family Practice 08/27/16 documented as of this encounter
--- OUTSIDE RECORDS SUMMARY | 2025-02-10 10:54 | XMS_ITS | Encounter Summary ---
Author Organization [facility] Address [address] [place] [address] Care Team Providers Care Weight Loss Consultant Name Role Phone Jaswant Kirby MD Primary Care Provider Unavail able Encounter Details Date Type Department Care Team (Late st Contact Info) Description 04/28/2009 Outpatient Historical [facility] Joey Sosa MD [address] [place] [phone] Taran Cardoza MD Department of Radiology [address] [place] [phone] Social History Tobacco Use Types Packs/Day Years Used Date Smoking Tobacco: Never Alcohol Use Standard Drinks/Week Comments No 0 (1 standard drink = 0.6 oz pur e alcohol) Comments No Sex and Gender Information Value Date Recorded Sex Assigned at Not on file Legal Sex Female 2:40 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 OFFICER AFLOAT Gender Identity Not on file Sexual Orientation Not on file documented as of this encounter Plan of Treatment Not on file documented as of this encounter Procedures Procedure Name Priority Date/Time Associated Diagnosis Comments PATHOLOGY Routine 05/05/2009 8:58 AM CDT XR CONSULTATION Routine 05/05/2009 8:28 AM CDT US GUIDE NEEDLE PLACEMENT Routine 05/05/2009 8:28 AM CDT PT AND APTT Stat 05/05/2009 6:40 AM CDT PLATELET COUNT Stat 05/05/2009 6:40 AM CDT documented in this encounter Results * PATHOLOGY (05/05/2009 8:58 AM CDT) FINAL REPORT [facility] [address] [place], [place] [address] Patient: FELECIA MENDOZA : 1945 Procedure Date: 05/05/2009 Accession Date: 05/05/2009 Case No: [id number] Ordering Dr: TARAN CARDOZA Case types AW, BW, FW, NW and SH are performed by [facility] [place], [place] SURGICAL PATHOLOGY & NON-GYNECOLOGIC CYTOPATHOLOGY REPORT DIAGNOSIS LIVER, NEEDLE BIOPSY: - MACROVESICULAR STEATOSIS, MIXED PORTAL AND LOBULAR INFLAMMATION, AND DUCTULAR REACTION (SEE MICROSCOPIC DESCRIPTION AND COMMENT). Specimen Description: Liver biopsy. Operative Procedure: Needle core biopsy. Patient Information/Histor y/Diagnosis: Elevated liver enzymes. Gross: Received in a single container labeled Felecia Mendoza., liver biopsy are two allen cores of tissue measuring 0.2 cm in diameter and 0.5 and 1.2 cm in lengths. The entire specimen is submitted in cassette A1. LWL/SKW 05.05.2009 04:01 pm Microscopic: The slides are labeled [id number], Felecia Mendoza. Sections of the needle core biopsy of the liver show one long and one short core of liver tissue with portions of eight portal tracts present for evaluation. There is mild to focally moderate macrovesicular steatosis with rare ballooning but no Franca s hyaline. There are patchy lobular infiltrates of mononuclear cells and a few neutrophils, as well as pigmented Kupffer cell aggregates. Portal tracts have a mild mixed inflammatory infiltrate including a few lymphocytes, plasma cells and eosinophils. Some of the portal tracts show bile ductular reaction, with numerous periductular neutrophils. In most portal tracts, the interlobular bile duct is easily identified and appears unremarkable. Many portal tracts also contain pigmented macrophages. Portal edema is not appreciated. No bile plugs are seen. The trichrome stain shows no fibrosis. The PAS-D stain is negative for alpha-1 antitrypsin globules; it does highlight the portal macrophages and Kupffer cell aggregates. The iron stain is negative. COMMENT: The biopsy has steatosis, portal and lobular inflammation, and bile ductular reaction. The appearance is nonspecific, and the etiology is not clear. Some of the features could suggest the mild end of the spectrum of non-alcoholic or alcoholic liver disease, though the prominence of the pericholangitis in the face of such mild activity would be somewhat unusual. Other possible etiologies or contributors to consider could be biliary tract abnormalities and a drug reaction, among others. ALBARO/LEO 05.06.2009 02:51 pm Staging Form: No. ELECTRONIC SIGNATURE FOR ZOIE ZELAYA MD- 05/06/09 03:08 pm INTERFACE SYSTEM 05/05/2009 8:58 AM CDT Taran Cardoza MD PATHOLOGY/CYTOLOGY ORDERABLES Fi nal Result INTERFACE SYSTEM Refer to clinic/hospital department * XR CONSULTATION (05/05/2009 8:28 AM CDT) 05/05/2009 8:28 AM CDT Narrative INTERFACE SYSTEM - 05/06/2009 5:28 PM CDT [facility] [address], [place] [address] Admit Date: 05/05/2009 FELECIA MENDOZA Sex: F Admit Prov: Raf SOSA Date: 1945 Primary Care Prov: MANSI RAMOS CMRN: [id number] Room: [facility] SSN: [id number] IMAGING SERVICES Ordering Prov: N/A Accession Number: [id number] Interpretation Ultrasound Guided Liver Biopsy History: 63-year-old female presenting for liver biopsy. Surgeon: Taran Cardoza MD Medications: None Anesthesia: 1% Lidocaine locally. Informed written consent was obtained from the patient after explaining the procedure, benefits and risks (including but not limited to bleeding and infection). Procedure: Ultrasound of the right upper quadrant to determine the proper approach for a biopsy was performed. The right upper quadrant was then prepped and draped in a sterile fashion. 1% Lidocaine was infiltrated locally. A 16- gauge biopsy needle was advanced into the liver and a core was obtained. The patient tolerated the procedure well. Impression: Ultrasound-guided liver biopsy. . Dictated by: TARAN CARDOZA 05/06/2009 17:27 Electronically signed by: TARAN CARDOZA 05/06/2009 17:27 Procedure Note Taran Cardoza MD - 05/06/2009 [facility] [address] [place], [place] [address] Admit Date: 05/05/2009 FARHATARSHFELECIA SIMONS Sex: F Admit Prov: Raf SOSA Date:1945 Primary Care Prov: MANSI RAMOS CMRN: [id number] Room: [facility] SSN: [id number] IMAGING SERVICES Ordering Prov: N/A Interpretation Ultrasound Guided Liver Biopsy History: 63-year-old female presenting for liver biopsy. Surgeon: Taran Cardoza MD Medications: None Anesthesia: 1% Lidocaine locally. Informed written consent was obtained from the patient afterexplaining the procedure, benefits and risks (including but not limited to bleedingand infection). Procedure: Ultrasound of the right upper quadrant to determine the properapproach for a biopsy was performed. The right upper quadrant was then preppedand draped in a sterile fashion. 1% Lidocaine was infiltrated locally.A 16- gauge biopsy needle was advanced into the liver and a core wasobtained. The patient tolerated the procedure well. Impression: Ultrasound-guided liver biopsy. . Dictated by: TARAN CARDOZA 05/06/2009 17:27 Electronically signed by: TARAN CARDOZA 05/06/2009 17:27 Joey Sosa MD DIAGNOSTIC IMAGING ORDER MISAEL Final Result INTERFACE SYSTEM Refer to clinic/hospital department * US GUIDE NEEDLE PLACEMENT (05/05/2009 8:28 AM CDT) Anatomical Region Laterality Modality Other 05/05/2009 8:28 AM CDT Narrative 07/23/2009 6:30 PM CDT [facility] [address] [place], [place] [address] Admit Date: 05/05/2009 FELECIA MENDOZA Sex: F Admit Prov: Raf SOSA Date: 1945 Primary Care Prov: MANSI RAMOS CMRN: [id number] [id number] Ordering Prov: SOSARaf ANTHONY KAYLEIGH Accession Number: [id number] Interpretation SEE OTHER REPORT OF SAME DATE Dictated by: RADIOLOGY, DEPARTMENT O Electronically signed by: RADIOLOGY, DEPARTMENT 07/23/2009 18:24 Transcribed: 07/23/2009 18:18 AMK Procedure Note Radiology, Radiologist - 07/23/2009 [facility] [address] [place], [place] [address] Admit Date: 05/05/2009 FELECIA MENDOZA Sex: F Admit Prov: Raf SOSA Date:1945 Primary Care Prov: MANSI RAMOS CMRN: [id number] [id number] [facility] Ordering Prov: Raf SOSA KAYLEIGH Interpretation SEE OTHER REPORT OF SAME DATE Dictated by: RADIOLOGY, DEPARTMENT O Electronically signed by: RADIOLOGY, DEPARTMENT 07/23/2009 18:24 Transcribed: 07/23/2009 18:18 AMK us Joey Sosa MD US ORDERABLES Final Re sult * PT AND APTT (05/05/2009 6:40 AM CDT) PTT 28.6 24.4 - 36.4 Seconds [facility] Comment: PTT Therapeutic Range: Heparin Level PTT (seconds) <0.10 units/mL <53 0.10 - 0.30 units/mL 53 - 67 0.30 - 0.70 units/mL* 67 - 95* 0.70 - 1.00 units/mL 95 - 116 *corresponds to therapeutic range for unfractionated heparin INR 1.0 0.9 - 1.1 [facility] Comment: INR Therapeutic Range: Adult: 2.0 - 3.0 for pulmonary embolism or prophylaxis against venous thrombosis or systemic embolization. 2.0 - 3.0 for patients with tissue heart valves. 2.5 - 3.5 for patients with mechanical heart valves or post VA. Pediatric (12 years and under): 1.5 - 3.0 Although the target range in children is not well established, INR values of 1.5 - 3.0 are recommended for most patients. Higher values have been used in children with prosthetic cardiac valves and hereditary clotting disorders. (<3 days) therapeutic ranges have not been established. PROTIME 13.0 12.7 - 15.1 Seconds [facility] 05/05/2009 6:40 AM CDT 05/05/2009 6:47 AM CDT Joey Sosa MD HEMATOLOGY ORDERABLES Ed ited Performing Organization Address City/[facility] de Phone Number INTERFACE SYSTEM Refer to clinic/hospital department [facility] CLIA# [id number] [address] [place] [address] * (ABNORMAL) PLATELET COUNT (05/05/2009 6:40 AM CDT) MPV 9.8 9.3 - 12.4 fL [facility] PLATELETS 530(H) 140 - 350 K/uL [facility] 05/05/2009 6:40 AM CDT 05/05/2009 6:47 AM CDT Joey Sosa MD HEMATOLOGY ORDERABLES Fi nal Result Performing Organization Address City/[facility] Co de Phone Number INTERFACE SYSTEM Refer to clinic/hospital department [facility] CLIA# [id number] [address] [place] [address] documented in this encounter Visit Diagnoses Not on filedocumented in this encounter Care Teams Weight Loss Consultant Relationship Specialty Start Date End Date Jaswant Kirby MD PCP - General Family Practice 08/27/16 documented as of this encounter
--- OUTSIDE RECORDS SUMMARY | 2025-02-10 10:54 | XMS_ITS | Encounter Summary ---
Author Organization [facility] Address [address] [place] [address] Care Team Providers Care Office Machinery Or Equipment Installer Name Role Phone Jaswant Kirby MD Primary Care Provider Unavail able Encounter Details Date Type Department Care Team (Late st Contact Info) Description 07/16/2007 Outpatient Historical [facility] Family Medicine [facility] [address] [facility] [address] [place] [address] Evette Yap MD NO ADDRESS ON FILE Social History Tobacco Use Types Packs/Day Years Used Date Smoking Tobacco: Never Assessed Comments Unknown Sex and Gender Information Value Date Recorded Sex Assigned at Not on file Legal Sex Female 2:40 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
--- OUTSIDE RECORDS SUMMARY | 2025-02-10 10:54 | XMS_ITS | Encounter Summary ---
Author Organization [facility] Address [address] [place] [address] Care Team Providers Care Shellacker Name Role Phone Jaswant Kirby MD Primary Care Provider Unavail able Encounter Details Date Type Department Care Team (Late st Contact Info) Description 12/25/2007 Orders Only [facility] Family Medicine [facility] [address] [place] [address] [place] 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 ALTERNATIVE PHONE NUMBER: [phone] WHO CALLED: Patient called. PHARMACY NUMBER: [phone] PROBLEMS: pt calling and asking for a antibiotic,amoxicillin states three people at work has walking pnemonia and one has whooping cough EARACHE: Patient complains of earache. The symptoms began days ago. both ears FEVER: Patient complains of fever. low grade PAIN: . body aches and pains SORE THROAT: Patient complains of sore throat. SECTION 1: RN/RING STAMPER RESPONSE: brad 12/25/07 at 02:08 pm spoke with pt......states she has a sinus infection...c/o 8-9 day hx of worsening sx's...she is currently c/o severe headache, head congestion, sinus painand pressure and purulent nasal drainage. See allergies. Tammy DOCTOR`S RESPONSE: sophy 12/25/07 at 02:36 pm OTC and MEDICATIONS: Call in to Pharmacy AZITHROMYCIN ORAL TABLET 250 MG, two today and then one daily for 4 days, 6 Dispensed, status: NEW PRESCRIPTION, 12/25/2007. PGD FINAL ACTION: rosie 12/25/07 at 05:13 pm Called pharmacy at 12/25/07 at 05:13 pm. Pt. informed. Dianna gomez Electronically Signed by: Dianna Gillespie RN on November documented in this encounter Plan of Treatment Not on file documented as of this encounter Visit Diagnoses Not on filedocumented in this encounter Care Teams Shellacker Relationship Specialty Start Date End Date Jaswant Kirby MD PCP - General Family Practice 08/27/16 documented as of this encounter
--- OUTSIDE RECORDS SUMMARY | 2025-02-10 10:54 | XMS_ITS | Encounter Summary ---
Author Organization [facility] Address [address] [place] [address] Care Team Providers Care Tourism Radio Presenter Name Role Phone Jaswant Kirby MD Primary Care Provider Unavail able Encounter Details Date Type Department Care Team (Late st Contact Info) Description 03/05/2007 Outpatient Historical [facility] Family Medicine [facility] [address] [place] [address] [place] 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 CLEANER APPRENTICE Gender Identity Not on file Sexual Orientation Not on file documented as of this encounter Last Filed Vital Signs Vital Sign Reading Time Taken Comments Blood Pressure 112/60 03/05/2007 8:15 AM CDT Pulse 60 03/05/2007 8:15 AM CDT Temperature 36.7 C (98.1 F) 03/05/2007 8:15 AM CDT Respiratory Rate - - Oxygen Saturation - - Inhaled Oxygen Concentration - - Weight 88 kg (194 lb) 03/05/2007 8:15 AM CDT Height - - Body Mass Index 35.48 06/13/2006 9:45 AM CDT documented in this encounter Plan of Treatment Not on file documented as of this encounter Visit Diagnoses Not on filedocumented in this encounter Care Teams Tourism Radio Presenter Relationship Specialty Start Date End Date Jaswant Kirby MD PCP - General Family Practice 08/27/16 documented as of this encounter
--- OUTSIDE RECORDS SUMMARY | 2025-02-10 10:54 | XMS_ITS | Encounter Summary ---
Author Organization [facility] Address [address] [place] [address] Care Team Providers Care Melt House Drag Operator Name Role Phone Jaswant Kirby MD Primary Care Provider Unavail able Encounter Details Date Type Department Care Team (Late st Contact Info) Description 04/23/2009 Outpatient Historical [facility] Joey Sosa MD [address] [place] [phone] Elev Transaminase/LDH Social History Tobacco Use Types Packs/Day Years Used Date Smoking Tobacco: Never Alcohol Use Standard Drinks/Week Comments No 0 (1 standard drink = 0.6 oz pur e alcohol) Comments No Sex and Gender Information Value Date Recorded Sex Assigned at Not on file Legal 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3 6.3 - 8.6 g/dL [facility] AST 75(H) 12 - 32 U/L [facility] BILIRUBIN DIRECT 0.1 0.0 - 0.3 mg/dL [facility] ALBUMIN 4.4 3.4 - 4.8 g/dL [facility] ALT 57(H) 0 - 31 U/L [facility] 04/23/2009 8:25 AM CDT 04/23/2009 4:34 PM CDT Joey Sosa MD CHEMISTRY ORDERABLES Fin al Result Performing Organization Address [facility] de Phone Number INTERFACE SYSTEM Refer to clinic/hospital department [facility] CLIA# [id number] [address] [place] [address] * (ABNORMAL) CHOLESTEROL TOTAL (04/23/2009 8:25 AM CDT) CHOLESTEROL 253(H) 100 - 199 mg/dL [facility] Comment: Cholesterol Adult ATP III Classification: Desirable < 200 mg/dL Borderline 200 - 239 mg/dL High >= 240 mg/dL Cholesterol Pediatric NCEP Classification (<20 years): Desirable < 170 mg/dL Borderline 170 - 199 mg/dL High >= 200 mg/dL 04/23/2009 8:25 AM CDT 04/23/2009 4:34 PM CDT us Joey Sosa MD CHEMISTRY ORDERABLES Fin al Result Performing Organization Address [facility] Co de Phone Number INTERFACE SYSTEM Refer to clinic/hospital department [facility] CLIA# [id number] [address] [place] [place] [address] documented in this encounter Visit Diagnoses Diagnosis Nonspecific elevation of levels of transaminase or lactic acid dehydrogenase (LDH) documented in this encounter Care Teams Melt House Drag Operator Relationship Specialty Start Date End Date Jaswant Kirby MD PCP - General Family Practice 08/27/16 documented as of this encounter
--- OUTSIDE RECORDS SUMMARY | 2025-02-10 10:54 | XMS_ITS | Encounter Summary ---
Author Organization [facility] Address [address] [place] [address] Care Team Providers Care Knitter Helper Name Role Phone Jaswant Kirby MD Primary Care Provider Unavail able Encounter Details Date Type Department Care Team (Late st Contact Info) Description 08/06/2007 Outpatient Historical [facility] Joey Sosa MD [address] [place] [phone] Other Chronic Nonalcoholic Liver Disease (Primary Dx) Social History Tobacco Use Types Packs/Day Years Used Date Smoking Tobacco: Never Assessed Comments Unknown Sex and Gender Information Value Date Recorded Sex Assigned at Not on file Legal Sex Female 2:40 AM MANAGER WOUND Gender Identity Not on file Sexual Orientation Not on file documented as of this encounter Plan of Treatment Not on file documented as of this encounter Visit Diagnoses Diagnosis Other chronic nonalcoholic liver disease- Primary documented in this encounter Care Teams Knitter Helper Relationship Specialty Start Date End Date Jaswant Kirby MD PCP - General Family Practice 08/27/16 documented as of this encounter
--- OUTSIDE RECORDS SUMMARY | 2025-02-10 10:54 | XMS_ITS | Encounter Summary ---
Author Organization [facility] Address 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
--- OUTSIDE RECORDS SUMMARY | 2025-02-10 10:54 | XMS_ITS | Encounter Summary ---
Author Organization [facility] Address [address] [place] [address] Care Team Providers Care Hot Stamp Operator Name Role Phone Jaswant Kirby MD Primary Care Provider Unavail able Encounter Details Date Type Department Care Team (Late st Contact Info) Description 03/19/2007 Orders Only [facility] Family Medicine [facility] [address] [address] [facility] [address] [place] [address] [place] [address] [address] [facility] [place] [address] Social History Tobacco Use Types Packs/Day Years Used Date Smoking Tobacco: Never Assessed Comments Unknown Sex and Gender Information Value Date Recorded Sex Assigned at Not on file Legal Sex Female 2:40 AM OFFICE SERVICES SPECIALIST Gender Identity Not on file Sexual Orientation Not on file documented as of this encounter Plan of Treatment Not on file documented as of this encounter Visit Diagnoses Not on filedocumented in this encounter Care Teams Hot Stamp Operator Relationship Specialty Start Date End Date Jaswant Kirby MD PCP - General Family Practice 08/27/16 documented as of this encounter
--- OUTSIDE RECORDS SUMMARY | 2025-02-10 10:54 | XMS_ITS | Encounter Summary ---
Author Organization [facility] Address [address] [place] [address] Care Team Providers Care Solder Making Supervisor Name Role Phone Jaswant Kirby MD Primary Care Provider Unavail able Encounter Details Date Type Department Care Team (Late st Contact Info) Description 05/06/2007 Orders Only [facility] Family Medicine [facility] [address] [place] [address] [place] [address] 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 ALTERNATIVE PHONE NUMBER: [phone] WHO CALLED: Patient called. PHARMACY NUMBER: [phone] SECTION 1: REQUESTED ACTION roz 05/06/07 at 09:38 am: MEDICATION REQUEST: Patient requests a refill.nexium. she cannot get endoscopy until around 06/08/07. needs the double dose until then. take it bid needs 30 day supply. DOCTOR`S RESPONSE: sophy 05/06/07 at 09:45 am MEDICATIONS: Call in to Pharmacy NEXIUM ORAL CAPSULE DELAYED RELEASE 40 MG TABLETS, 1 Two Times A Day, 60 Dispensed, 2 Fills, 30 Duration/Days Supply, status: CONTINUED, 05/06/2007. PGD FINAL ACTION: bryanna 05/06/07 at 09:52 am called pharmacy and pt Electronically Signed by: Yoly Blue on Sunday, May 06, 2007 documented in this encounter Plan of Treatment Not on file documented as of this encounter Visit Diagnoses Not on filedocumented in this encounter Care Teams Solder Making Supervisor Relationship Specialty Start Date End Date Jaswant Kirby MD PCP - General Family Practice 08/27/16 documented as of this encounter
--- OUTSIDE RECORDS SUMMARY | 2025-02-10 10:54 | XMS_ITS | Encounter Summary ---
Author Organization [facility] Address [address] [place] [address] Care Team Providers Care Machine Clothing Worker Name Role Phone Jaswant Kirby MD Primary Care Provider Unavail able Encounter Details Date Type Department Care Team (Late st Contact Info) Description 04/16/2007 Outpatient Historical [facility] Family Medicine [facility] [address] [place] [address] [place] 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 Gender Identity Not on file Sexual Orientation Not on file documented as of this encounter Last Filed Vital Signs Vital Sign Reading Time Taken Comments Blood Pressure 108/74 04/16/2007 1:00 PM CDT Pulse 60 04/16/2007 1:00 PM CDT Temperature - - Respiratory Rate - - Oxygen Saturation - - Inhaled Oxygen Concentration - - Weight 89.8 kg (198 lb) 04/16/2007 1:00 PM CDT Height - - Body Mass Index 36.21 06/13/2006 9:45 AM CDT documented in this encounter Plan of Treatment Not on file documented as of this encounter Visit Diagnoses Not on filedocumented in this encounter Care Teams Machine Clothing Worker Relationship Specialty Start Date End Date Jaswant Kirby MD PCP - General Family Practice 08/27/16 documented as of this encounter
--- OUTSIDE RECORDS SUMMARY | 2025-02-10 10:54 | XMS_ITS | Encounter Summary ---
Author Organization [facility] Address [address] [place] [address] Care Team Providers Care Copy Holder Name Role Phone Jaswant Kirby MD Primary Care Provider Unavail able Encounter Details Date Type Department Care Team (Late st Contact Info) Description 04/16/2008 Orders Only [facility] Family Medicine [facility] [address] [facility] [address] [place] [address] [place] [address] [address] 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
--- OUTSIDE RECORDS SUMMARY | 2025-02-10 10:54 | XMS_ITS | Encounter Summary ---
Author Organization [facility] Address [address] [place] [address] Care Team Providers Care Ink Printer Name Role Phone Jaswant Kirby MD Primary Care Provider Unavail able Encounter Details Date Type Department Care Team (Late st Contact Info) Description 10/28/2007 Orders Only [facility] Family Medicine [facility] [place] [address] [place] [address] 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 BLOOD PRESSURE: 108/74. Right Arm Sitting PULSE: 64. Right Radial, Regular ALLERGIES: Allergies are as listed. TOBACCO USE: Patient does not currently use tobacco. CHIEF COMPLAINT Here for follow up evaluation.discuss blood work.est/mercy HISTORY: on Welchol 6 tablets per day for fatty liver was on Welchol for 2 months and lab showed that her glucose and cholesterol and calcium were mildlyelevated; GI wanted her to see me to discuss other cholesterol medicine as she had to stop lipitor for reason of muscle ache see lab from Dr Weinstein at times feels hoarse and like throat swollen also having problems with hair loss HISTORY: 300.00-ANXIETY was switched from lexapro to generic celexa, and not doing as well ROS: ENT: See HISTORY OF PRESENT ILLNESS. GI: See HISTORY OF PRESENT ILLNESS. PSYCHIATRIC: See HISTORY OF PRESENT ILLNESS. PHYSICAL EXAMINATION: CONSTITUTIONAL: GENERAL APPEARANCE: Healthy appearing patient in no distress. EARS, NOSE, MOUTH AND THROAT: ORAL: Inspection of gums, lips, palate, and teeth normal. No scars, lesions, or masses. Oral mucosaunremarkable with non-inflamed posterior pharynx. NECK/THYROID: Trachea midline. No thyroid enlargement, tenderness, or mass. No supraclavicular or cervical adenopathy. RESPIRATORY: Clear to auscultation and percussion. Normal respiratory effort. CARDIOVASCULAR: CARDIAC: Regular rhythm. No murmurs, rubs, or gallops. SKIN: scalp appears normal PSYCHIATRIC: ANXIOUS. ASSESSMENT/PLAN: 272.0-PURE HYPERCHOLESTEROLEMIA ASSESSMENT: Will not change medication, continue to monitor for complications. A low cholesterol diet was encouraged. Weight loss was encouraged. Regular exercise was encouraged. I discussed this with Dr Weinstein and he agreed with my approach of not adding medicine at this time tolower cholesterol but to focus on lifestyle and continue the Welchol for her fatty liver disease. 300.00-ANXIETY ASSESSMENT: The patient's anxiety has worsened.she was switched to generic celexa from the lexapro;her mood and anxiety was much better on the lexapro; I'll have my pharmacy team try and get it approved. 790.21-ABNORMAL FASTING BLOOD GLUCOSE ASSESSMENT: this is not new and I encouraged her to focus on lifestyle 704.00-ALOPECIA ASSESSMENT: rule out hypothyroidism LAB ORDERS: Order number: [id number] Test Ordered: TSH W/REFLEX TO FT4 36008 275.42-HYPERCALCEMIA ASSESSMENT: mild elevation and she has always been normal before; I'll recheck; not on any supplemental calcium LAB ORDERS: Order number: [id number] Test Ordered: CALCIUM 303 Order number: [id number] Test Ordered: CALCIUM, IONIZED 306 476.0-LARYNGITIS, CHRONIC ASSESSMENT: etiology unclear SPECIALTY REFERRAL: ENT (OTOLARYNGOLOGY) [facility] fax: [phone] fax: [phone]. RETURN VISIT: Return as planned. [facility] Instructed to call if not improving. Electronically Signed by: Kobe Douglass MD on Monday, October 29, 2007 documented in this encounter Plan of Treatment Not on file documented as of this encounter Visit Diagnoses Not on filedocumented in this encounter Care Teams Ink Printer Relationship Specialty Start Date End Date Jaswant Kirby MD PCP - General Family Practice 08/27/16 documented as of this encounter
--- OUTSIDE RECORDS SUMMARY | 2025-02-10 10:54 | XMS_ITS | Encounter Summary ---
Author Organization [facility] Address 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
--- OUTSIDE RECORDS SUMMARY | 2025-02-10 10:54 | XMS_ITS | Encounter Summary ---
Author Organization [facility] Address [address] [place] [address] Care Team Providers Care Glove Wrapper Name Role Phone Jaswant Kirby MD Primary Care Provider Unavail able Encounter Details Date Type Department Care Team (Late st Contact Info) Description 01/08/2009 Outpatient Historical [facility] Joey Sosa MD [address] [place] [address] Elev Transaminase/LDH Social History Tobacco Use Types Packs/Day Years Used Date Smoking Tobacco: Never Alcohol Use Standard Drinks/Week Comments No 0 (1 standard drink = 0.6 oz pur e alcohol) Comments No Sex and Gender Information Value Date Recorded Sex Assigned at Not on file Legal Sex Female 2:40 AM FELLED SEAM OPERATOR CHAINSTITCH Gender Identity Not on file Sexual Orientation Not on file documented as of this encounter Plan of Treatment Not on file documented as of this encounter Procedures Procedure Name Priority Date/Time Associated Diagnosis Comments HEPATIC FUNCTION PANEL Routine 01/08/2009 8:04 AM FELLED SEAM OPERATOR CHAINSTITCH documented in this encounter Results * (ABNORMAL) HEPATIC FUNCTION PANEL (01/08/2009 8:04 AM FELLED SEAM OPERATOR CHAINSTITCH) BILIRUBIN TOTAL 0.3 0.2 - 1.0 mg/dL [facility] TOTAL PROTEIN 7.6 6.3 - 8.6 g/dL [facility] ALKALINE PHOSPHATASE 145(H) 35 - 104 U/L [facility] BILIRUBIN DIRECT 0.1 0.0 - 0.3 mg/dL [facility] AST 21 12 - 32 U/L [facility] ALBUMIN 4.3 3.4 - 4.8 g/dL [facility] ALT 28 0 - 31 U/L [facility] Blood specimen (specimen) 01/08/2009 8:04 AM FELLED SEAM OPERATOR CHAINSTITCH 01/08/2009 4:11 PM FELLED SEAM OPERATOR CHAINSTITCH Joey Sosa MD CHEMISTRY ORDERABLES Fin al Result INTERFACE SYSTEM Refer to clinic/hospital department [facility] CLIA# [id number] [address] [place] [address] documented in this encounter Visit Diagnoses Diagnosis Nonspecific elevation of levels of transaminase or lactic acid dehydrogenase (LDH) documented in this encounter Care Teams Glove Wrapper Relationship Specialty Start Date End Date Jaswant Kirby MD PCP - General Family Practice 08/27/16 documented as of this encounter
--- OUTSIDE RECORDS SUMMARY | 2025-02-10 10:54 | XMS_ITS | Encounter Summary ---
Author Organization [facility] Address [address] [place] [address] Care Team Providers Care Welding Machine Operator Helper Arc Name Role Phone Jaswant Kirby MD Primary Care Provider Unavail able Encounter Details Date Type Department Care Team (Late st Contact Info) Description 07/15/2007 Orders Only [facility] Family Medicine [facility] [address] [facility] [address] [place] [address] [place] [address] [place] [address] Social History Tobacco Use Types Packs/Day Years Used Date Smoking Tobacco: Never Assessed Comments Unknown Sex and Gender Information Value Date Recorded Sex Assigned at Not on file Legal Sex Female 2:40 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 PCP: Danis. LYNN PHONE NUMBER: [phone] WHO CALLED: Patient`s spouse called. PHARMACY NUMBER: fax to [facility] SECTION 1: REQUESTED ACTION [email or web address] 07/15/07 at 09:00 am: MEDICATION REQUEST: Patient requests a refill. generic Xanax DOCTOR`S RESPONSE: demetria 07/15/07 at 09:34 am DOCTOR`S OTHER RESPONSE: Dr. Douglass' patient. Please send to him or back-up sup. [facility] SECTION 2: DOCTOR`S RESPONSE: maya 07/15/07 at 09:40 am MEDICATIONS: XANAX ORAL TABLET 0.5 MG, 1 qd prn, 30 Dispensed, status: CONTINUED, 07/15/2007. FINAL ACTION: [email or web address] 07/15/07 at 04:22 pm Called pharmacy at 07/15/07 at 04:22 pm. requested faxed to [employer] advising pt......peyton Electronically Signed by: Peyton Schneider on Sunday, July 15, 2007 documented in this encounter Plan of Treatment Not on file documented as of this encounter Visit Diagnoses Not on filedocumented in this encounter Care Teams Welding Machine Operator Helper Arc Relationship Specialty Start Date End Date Jaswant Kirby MD PCP - General Family Practice 08/27/16 documented as of this encounter
--- OUTSIDE RECORDS SUMMARY | 2025-02-10 10:55 | XMS_ITS | Encounter Summary ---
Author Organization [facility] Address [address] [place] [address] Care Team Providers Care Bag Press Operator Name Role Phone Jaswant Kirby MD Primary Care Provider Unavail able Encounter Details Date Type Department Care Team (Latest Contact Info) Description 04/19/2006 Outpatient Historical [facility] Terrell Morrissey MD [address] 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 Gender Identity Not on file Sexual Orientation Not on file documented as of this encounter Plan of Treatment Not on file documented as of this encounter Procedures Procedure Name Priority Date/Time Associated Diagnosis Comments HEMOGLOBIN AND HEMATOCRIT Routine 04/16/2006 4:05 PM CDT BASIC METABOLIC PANEL Routine 04/16/2006 4:05 PM CDT documented in this encounter Results * HEMOGLOBIN AND HEMATOCRIT (04/16/2006 4:05 PM CDT) HEMOGLOBIN 13.0 11.8 - 14.8 g/dL INTERFACE SYSTEM HEMATOCRIT 38.6 35.5 - 44.0 % INTERFACE SYSTEM 04/16/2006 4:05 PM CDT Terrell Morrissey MD HEMATOLOGY ORDERABLES Final Res ult Performing Organization Address City/State/[facility] de Phone Number INTERFACE SYSTEM Refer to clinic/hospital department * (ABNORMAL) BASIC METABOLIC PANEL (04/16/2006 4:05 PM CDT) GLUCOSE 110(H) 65 - 99 mg/dL INTERFACE SYSTEM Comment:Note: Effective April 09, 2006, reference range now reflects a fasting st ate. CREATININE 0.8 0.4 - 1.2 mg/dL INTERFACE SYSTEM CALCIUM 9.8 8.6 - 10.2 mg/dL INTERFACE SYSTEM BUN 20 6 - 20 mg/dL INTERFACE SYSTEM SODIUM 139 135 - 145 mmol/L INTERFACE SYSTEM POTASSIUM 3.9 3.5 - 4.9 mmol/L INTERFACE SYSTEM CHLORIDE 96 96 - 108 mmol/L INTERFACE SYSTEM CO2 30 22 - 30 mmol/L INTERFACE SYSTEM 04/16/2006 4:05 PM CDT Terrell Morrissey MD CHEMISTRY ORDERABLES Final Resu lt Performing Organization Address [facility] de Phone Number INTERFACE SYSTEM Refer to clinic/hospital department documented in this encounter Visit Diagnoses Diagnosis Spinal stenosis in cervical region- Primary documented in this encounter Care Teams Bag Press Operator Relationship Specialty Start Date End Date Jaswant Kirby MD PCP - General Family Practice 08/27/16 documented as of this encounter
--- OUTSIDE RECORDS SUMMARY | 2025-02-10 10:55 | XMS_ITS | Encounter Summary ---
Author Organization [facility] Address [address] [place] [address] Care Team Providers Care Plug Stitcher Name Role Phone Jaswant Kirby MD Primary Care Provider Unavail able Encounter Details Date Type Department Care Team (Late st Contact Info) Description 02/20/2007 Outpatient Historical [facility] Family Medicine [place] [facility] [address] [place] [address] [place] [address] [place] [address] Social History Tobacco Use Types Packs/Day Years Used Date Smoking Tobacco: Never Assessed Comments Unknown Sex and Gender Information Value Date Recorded Sex Assigned at Not on file Legal 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 Gender Identity Not on file Sexual Orientation Not on file documented as of this encounter Last Filed Vital Signs Vital Sign Reading Time Taken Comments Blood Pressure 130/72 02/20/2007 11:30 AM CDT Pulse 80 02/20/2007 11:30 AM CDT Temperature - - Respiratory Rate - - Oxygen Saturation - - Inhaled Oxygen Concentration - - Weight 87.1 kg (192 lb) 02/20/2007 11:30 AM CDT Height - - Body Mass Index 35.12 06/13/2006 9:45 AM CDT documented in this encounter Plan of Treatment Not on file documented as of this encounter Visit Diagnoses Not on filedocumented in this encounter Care Teams Plug Stitcher Relationship Specialty Start Date End Date Jaswant Kirby MD PCP - General Family Practice 08/27/16 documented as of this encounter
--- OUTSIDE RECORDS SUMMARY | 2025-02-10 10:55 | XMS_ITS | Encounter Summary ---
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 Oral BLOOD PRESSURE: 128/78. Right Arm Sitting PULSE: 77. Right Radial, Regular RESPIRATIONS: 16. CHIEF COMPLAINT Cough, raspy voice, SOB HISTORY: 61 y/o CF with multiple medical problems. 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 She presents today because of recurrent cough. Sx started 1 month ago after an episode of emesis. She reported chest tightness and SOB with cough that improved after a course of antibiotics and bronchodilators. She states however that her sx have returned. She has SOB and cough that have not been improving on inhaled bronchodilators and cough suppressants. She is here today for further evaluation. She states that sometimes her sx are accompanied by chills and recently she took her temp during an episode and it was 95.5. She denied having rapid breathing at the time. ROS: ALLERGIC/IMMUNOLOGIC: HAS ALLERGIC RHINITIS, no environmental allergies. ENDOCRINE: HISTORY OF DIABETES. CARDIAC: NOTES MILD DYSPNEA ON EXERTION, no chest discomfort noted. RESPIRATORY: HAS A COUGH, HAS HAD A RECENT UPPER RESPIRATORY INFECTION, HAS HAD PERIODS OF SHORTNESS OF BREATH, YELLOW SPUTUM NOTED, no history of pneumonia. HEMATOLOGIC/LYMPHATIC: No anemia, easy bruising, bleeding or swollen nodes. GI: . History of irritable bowel and recurrent chronic right sided abdominal pain. PAST MEDICAL HISTORY: SURGICAL: neck surgery SOCIAL HISTORY: TOBACCO USE: Has no significant smoking history. PHYSICAL EXAMINATION: CONSTITUTIONAL: GENERAL APPEARANCE: Healthy appearing patient in no distress. NECK/THYROID: Trachea midline. No thyroid enlargement, tenderness, or mass. No supraclavicular or cervical adenopathy. RESPIRATORY: No crackles, no rhonchi, clear to percussion, normal respiratory effort. Scant wheeze. CARDIOVASCULAR: CARDIAC: Regular rhythm. No murmurs, rubs, or gallops. ARTERIAL: Normal pedal pulses. JUGULAR VEINS: JUGULAR VENOUS DISTENTION ELEVATED. EDEMA/VARICOSITIES OF EXTREMITIES: No edema. LYMPHATICS: No lymphadenopathy in the neck, no supraclavicular lymphadenopathy noted. XRAY RESULT: IM LAB F/U CXR The CXR is normal. final read; questionable whispy perihilar infiltrate on right. 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 Will follow up on CXR ordered today. Send sputum culture. As in office concern for possible perihilar infiltrates on CXRwill treat with Levaquin given pt's allergies to Erythromycin, Amoxicillin, Sulfa and Tetracycline.Plan PFTs when pt feeling better. Send pt to ENT for direct visualization of vocal cords to insure vagus nerve not injured and that she is adequately protecting her airway. LAB ORDERS: Order number: [id number] Test Ordered: SPUTUM CULTURE WITH SMEAR [id number] SPECIALTY REFERRAL: ENT (OTOLARYNGOLOGY) [facility] fax: [phone] fax: [phone]. RETURN VISIT: Instructed to call if not improving. Patient instructed to return in 3 months. 11/05/06 11:53 a Electronically signed by Ana Ferguson MD. TEACHING PHYSICIAN COMMENTS: I have reviewed the resident's note and I agree with the resident's evaluation and plan.JJD Electronically Signed by: Ortiz Gale MD on Sunday, November 12, 2006 documented in this encounter Plan of Treatment Not on file documented as of this encounter Visit Diagnoses Not on filedocumented in this encounter Care Teams Thermal Engineer Relationship Specialty Start Date End Date Jaswant Kirby MD PCP - General Family Practice 08/27/16 documented as of this encounter
--- OUTSIDE RECORDS SUMMARY | 2025-02-10 10:55 | XMS_ITS | Encounter Summary ---
Author Organization [facility] Address [address] [place] [address] Care Team Providers Care Appliances Sample Maker Name Role Phone Jaswant Kirby MD Primary Care Provider Unavail able Encounter Details Date Type Department Care Team (Latest Contact Info) Description 09/21/2005 Outpatient Historical [facility] Helga Duran MD [address] [place] [address] ANXIETY STATE NOS (Primary Dx) Social History Tobacco Use Types Packs/Day Years Used Date Smoking Tobacco: Never Assessed Comments Unknown Sex and Gender Information Value Date Recorded Sex Assigned at Not on file Legal Sex Female 2:40 AM PHOTOENGRAVING ETCHER APPRENTICE Gender Identity Not on file Sexual Orientation Not on file documented as of this encounter Plan of Treatment Not on file documented as of this encounter Procedures Procedure Name Priority Date/Time Associated Diagnosis Comments TSH REFLEXIVE Routine 09/21/2005 8:35 AM CDT documented in this encounter Results * TSH REFLEXIVE (09/21/2005 8:35 AM CDT) TSH 1.80 0.27 - 4.20 uU/mL INTERFACE SYSTEM 09/21/2005 8:35 AM CDT us Helga Soto MD CHEMISTRY ORDERABLE S Final Result INTERFACE SYSTEM Refer to clinic/hospital department documented in this encounter Visit Diagnoses Diagnosis Anxiety state, unspecified- Primary documented in this encounter Care Teams Appliances Sample Maker Relationship Specialty Start Date End Date Jaswant Kirby MD PCP - General Family Practice 08/27/16 documented as of this encounter
--- OUTSIDE RECORDS SUMMARY | 2025-02-10 10:55 | XMS_ITS | Encounter Summary ---
Author Organization [facility] Address [address] [place] [address] Care Team Providers Care Skilled Labor Name Role Phone Jaswant Kirby MD Primary Care Provider Unavail able Encounter Details Date Type Department Care Team (Latest Contact Info) Description 02/28/2006 Outpatient Historical HIS [facility] [place] [address] [facility] [place] [address] Other Screening Mammogram (Primary Dx) Social History Tobacco Use Types Packs/Day Years Used Date Smoking Tobacco: Never Assessed Comments Unknown Sex and Gender Information Value Date Recorded Sex Assigned at Not on file Legal Sex Female 2:40 AM ELECTRICAL ENGINEERING DIRECTOR Gender Identity Not on file Sexual Orientation Not on file documented as of this encounter Plan of Treatment Not on file documented as of this encounter Visit Diagnoses Diagnosis Other screening mammogram- Primary documented in this encounter Care Teams Skilled Labor Relationship Specialty Start Date End Date Jaswant Kirby MD PCP - General Family Practice 08/27/16 documented as of this encounter
--- OUTSIDE RECORDS SUMMARY | 2025-02-10 10:55 | XMS_ITS | Encounter Summary ---
Author Organization [facility] Address [address] Attn: Epic Prelude ADT [place] [address] Care Team Providers Care Winding Rack Operator Name Role Phone Jaswant Kirby MD Primary Care Provider Unavail able Encounter Details Date Type Department Care Team (Latest Contact Info) Description 02/04/2007 Orders Only Raymond Philippe Social History Tobacco Use Types Packs/Day Years Used Date Smoking Tobacco: Never Assessed Comments Unknown Sex and Gender Information Value Date Recorded Sex Assigned at Not on file Legal Sex Female 2:40 AM BUNDLER Gender Identity Not on file Sexual Orientation Not on file documented as of this encounter Plan of Treatment Not on file documented as of this encounter Visit Diagnoses Not on filedocumented in this encounter Care Teams Winding Rack Operator Relationship Specialty Start Date End Date Jaswant Kirby MD PCP - General Family Practice 08/27/16 documented as of this encounter
--- OUTSIDE RECORDS SUMMARY | 2025-02-10 10:55 | XMS_ITS | Encounter Summary ---
Author Organization [facility] Address [address] [place] [address] Care Team Providers Care Geriatric Case Manager Name Role Phone Jaswant Kirby MD Primary Care Provider Unavail able Encounter Details Date Type Department Care Team (Late st Contact Info) Description 10/15/2005 [facility] [address] [place] [address] CHRONIC LIVER DIS NEC (Primary Dx) Social History Tobacco Use Types Packs/Day Years Used Date Smoking Tobacco: Never Assessed Comments Unknown Sex and Gender Information Value Date Recorded Sex Assigned at Not on file Legal Sex Female 2:40 AM CUSTOMER SERVICE AGENT Gender Identity Not on file Sexual Orientation Not on file documented as of this encounter Plan of Treatment Not on file documented as of this encounter Visit Diagnoses Diagnosis Other chronic nonalcoholic liver disease- Primary documented in this encounter Care Teams Geriatric Case Manager Relationship Specialty Start Date End Date Jaswant Kirby MD PCP - General Family Practice 08/27/16 documented as of this encounter
--- OUTSIDE RECORDS SUMMARY | 2025-02-10 10:55 | XMS_ITS | Encounter Summary ---
Author Organization [facility] Address [address] [place] [address] Care Team Providers Care Biodiesel Technology Manager Name Role Phone Jaswant Kirby MD Primary Care Provider Unavail able Encounter Details Date Type Department Care Team (Latest Contact Info) Description 11/05/2006 Outpatient [place] [address] 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
--- OUTSIDE RECORDS SUMMARY | 2025-02-10 10:55 | XMS_ITS | Encounter Summary ---
Author Organization [facility] Address [address] [place] [address] Care Team Providers Care Tail Edger Name Role Phone Jaswant Kirby MD Primary Care Provider Unavail able Encounter Details Date Type Department Care Team (Late st Contact Info) Description 11/05/2006 Outpatient Historical [facility] Family Medicine Aziza Freddy [address] [address] [facility] [address] [place] [address] [place] [address] [address] [facility] [place] [address] Social History Tobacco Use Types Packs/Day Years Used Date Smoking Tobacco: Never Assessed Comments Unknown Sex and Gender Information Value Date Recorded Sex Assigned at Not on file Legal Sex Female 2:40 AM CASTING REPAIRER Gender Identity Not on file Sexual Orientation Not on file documented as of this encounter Last Filed Vital Signs Vital Sign Reading Time Taken Comments Blood Pressure 128/78 11/05/2006 11:00 AM CASTING REPAIRER Pulse 77 11/05/2006 11:00 AM CASTING REPAIRER Temperature 37.1 C (98.7 F) 11/05/2006 11:00 AM CASTING REPAIRER Respiratory Rate 16 11/05/2006 11:00 AM CASTING REPAIRER Oxygen Saturation - - Inhaled Oxygen Concentration - - Weight - - Height - - Body Mass Index - - documented in this encounter Plan of Treatment Not on file documented as of this encounter Visit Diagnoses Not on filedocumented in this encounter Care Teams Tail Edger Relationship Specialty Start Date End Date Jaswant Kirby MD PCP - General Family Practice 08/27/16 documented as of this encounter
--- OUTSIDE RECORDS SUMMARY | 2025-02-10 10:55 | XMS_ITS | Encounter Summary ---
Author Organization [facility] Address [address] [place] [address] Care Team Providers Care Mobile Application Engineer Name Role Phone Jaswant Kirby MD Primary Care Provider Unavail able Encounter Details Date Type Department Care Team (Late st Contact Info) Description 10/31/2005 Outpatient Historical [facility] Family Medicine [facility] [address] [facility] [address] [place] [address] Evette Yap MD NO ADDRESS ON FILE Social History Tobacco Use Types Packs/Day Years Used Date Smoking Tobacco: Never Assessed Comments Unknown Sex and Gender Information Value Date Recorded Sex Assigned at Not on file Legal Sex Female 2:40 AM VEHICLE TRIMMER Gender Identity Not on file Sexual Orientation Not on file documented as of this encounter Plan of Treatment Not on file documented as of this encounter Visit Diagnoses Not on filedocumented in this encounter Care Teams Mobile Application Engineer Relationship Specialty Start Date End Date Jaswant Kirby MD PCP - General Family Practice 08/27/16 documented as of this encounter
--- OUTSIDE RECORDS SUMMARY | 2025-02-10 10:55 | XMS_ITS | Encounter Summary ---
Author Organization [facility] Address [address] [place] [address] Attn: Epic Prelude ADT [place] [address] Care Team Providers Care Pneumatic Tube Repairer Name Role Phone Jaswant Kirby MD Primary Care Provider Unavail able Encounter Details Date Type Department Care Team (Latest Contact Info) Description 02/21/2006 Orders Only Shazia Palmer MD [address] [place] [address] Social History Tobacco Use Types Packs/Day Years Used Date Smoking Tobacco: Never Assessed Comments Unknown Sex and Gender Information Value Date Recorded Sex Assigned at Not on file Legal Sex Female 2:40 AM MUSIC LEADER Gender Identity Not on file Sexual Orientation Not on file documented as of this encounter Progress Notes * Interface, Nathan Stl Conv Transcriptions - 09/02/2008 7:43 PM CDT TIME:12:17 pm PATIENT`S HOME PHONE: PATIENT`S WORK PHONE: PATIENT`S INSURANCE: [facility] WHO TOOK THE CALL: Susannah Arguelles M GENERAL INFORMATION PATIENT STATUS: Established Patient. PCP: Marty. ALTERNATIVE PHONE NUMBER: [phone] WHO CALLED: Patient called. PHARMACY NUMBER: [phone] SECTION 1: REQUESTED ACTION [email or web address] 02/21/06 at 12:19 pm: MEDICATION REQUEST: Patient requests a refill. Flovent ----- call in to pharmacy Flexeril ---- mail script to home Fioricet ---- mail script to home Astelin ---- mail script to home DOCTOR`S RESPONSE: emiliana 02/21/06 at 04:40 pm I will give her one month's worth as she is Dr. Ferguson's patient and has not seen her for the diagnoses for which she is being prescribed above in some time. MA please call in [email or web address] and send this message back to me so I can print out her scripts and mail them to her. Thanks.-SSF MEDICATIONS: Call in to Pharmacy FLOVENT INHALATION AEROSOL 44 MCG/ACT, 2 Two Times A Day, 1 Dispensed, status: CONTINUED, 02/21/2006. FIORICET ORAL TABLET 50-325-40 MG, 1-2 PRN HEADACHE Q 4 HOURS; MAX 6/24 HRS, 30 Dispensed, status: CONTINUED, 02/21/2006. FLEXERIL ORAL TABLET 10 MG, 1 Three Times A Day, As Needed, 30 Dispensed, status: CONTINUED, 02/21/2006. ASTELIN NASAL SOLUTION 137 MCG/SPRAY, 2 sprays each nostril BID, 3 Dispensed, status: CONTINUED, 02/21/2006. FINAL ACTION: [email or web address] 02/22/06 at 08:59 am Called Flovent into pharmacy and LM informing pt of this.Darek SECTION 2: DOCTOR`S RESPONSE: [email or web address] 02/22/06 at 05:27 pm Mailed scripts.-SSF Electronically Signed by: Shazia Ignacio MD on Wednesday, February 22, 2006 documented in this encounter Plan of Treatment Not on file documented as of this encounter Visit Diagnoses Not on filedocumented in this encounter Care Teams Pneumatic Tube Repairer Relationship Specialty Start Date End Date Jaswant Kirby MD PCP - General Family Practice 08/27/16 documented as of this encounter
--- OUTSIDE RECORDS SUMMARY | 2025-02-10 10:55 | XMS_ITS | Encounter Summary ---
Author Organization [facility] Address [address] [place] [address] Care Team Providers Care Inspector Handbag Frames Name Role Phone Jaswant Kirby MD Primary Care Provider Unavail able Encounter Details Date Type Department Care Team (Latest Contact Info) Description 11/06/2006 Outpatient Historical [facility] Family Medicine [facility] [address] [facility] [address] [place] [address] Conversion, History Cough (Primary Dx) Social History Tobacco Use Types Packs/Day Years Used Date Smoking Tobacco: Never Assessed Comments Unknown Sex and Gender Information Value Date Recorded Sex Assigned at Not on file Legal Sex Female 2:40 AM BEAM WARPER Gender Identity Not on file Sexual Orientation Not on file documented as of this encounter Plan of Treatment Not on file documented as of this encounter Visit Diagnoses Diagnosis Cough- Primary documented in this encounter Care Teams Inspector Handbag Frames Relationship Specialty Start Date End Date Jaswant Kirby MD PCP - General Family Practice 08/27/16 documented as of this encounter
--- OUTSIDE RECORDS SUMMARY | 2025-02-10 10:55 | XMS_ITS | Encounter Summary ---
Author Organization [facility] Address [address] [place] [address] Care Team Providers Care Clinical Director Name Role Phone Jaswant Kirby MD Primary Care Provider Unavail able Encounter Details Date Type Department Care Team (Late st Contact Info) Description 11/16/2005 Outpatient Historical [facility] Support [facility]. (Adt Cardiology[facility]) [address] [place] [address] Galindo Cortes MD [address] [facility] [address] [place] [address] Social History Tobacco Use Types Packs/Day Years Used Date Smoking Tobacco: Never Assessed Comments Unknown Sex and Gender Information Value Date Recorded Sex Assigned at Not on file Legal Sex Female 2:40 AM OFFICE INSPECTOR Gender Identity Not on file Sexual Orientation Not on file documented as of this encounter Plan of Treatment Not on file documented as of this encounter Visit Diagnoses Not on filedocumented in this encounter Care Teams Clinical Director Relationship Specialty Start Date End Date Jaswant Kirby MD PCP - General Family Practice 08/27/16 documented as of this encounter
--- OUTSIDE RECORDS SUMMARY | 2025-02-10 10:55 | XMS_ITS | Encounter Summary ---
Author Organization [facility] Address [address] [facility] Attn: Epic Prelude ADT [place] [address] Care Team Providers Care Golf Professional Name Role Phone Jaswant Kirby MD Primary Care Provider Unavail able Encounter Details Date Type Department Care Team (Latest Contact Info) Description 07/15/2006 Orders Only Ana Ferguson MD Social History Tobacco Use Types Packs/Day Years Used Date Smoking Tobacco: Never Assessed Comments Unknown Sex and Gender Information Value Date Recorded Sex Assigned at Not on file Legal Sex Female 2:40 AM STAFFING CONSULTANT Gender Identity Not on file Sexual Orientation Not on file documented as of this encounter Progress Notes * Interface, Nathan Stl Conv Transcriptions - 09/02/2008 11:28 PM CDT NURSE NAME: BLOOD PRESSURE: 120/72. Right Arm Sitting PULSE: 60. Right Radial, Regular WEIGHT: 199lbs. ALLERGIES: Allergies are as listed. CHIEF COMPLAINT Here for follow up evaluation. Patient complains of. stomach pain/est/mercy HISTORY: HISTORY: 493.90-ASTHMA UNSPECIFIED The asthma has improved. The patient denies shortness of breath, cough, wheezing and reduced exercise tolerance. She feels that her voice will sometimes go away completely. She is now using the albuterol less frequently. 780.79-FATIGUE Pt reports increasing fatigue over the last 3 weeks. I could sleep all day. Sleeping through the night. No difficulty falling asleep. Worse throughout the day. Denies vaginal spotting or bloody stools, although they have been dark. 789.03-ABDOMINAL PAIN RIGHT LOWER QUADRANT The patient's abdominal pain has worsened. The patient has abdominal pain, has a fever, is having chills. Currently the patient is off all medication. Sx for the last 3 weeks. Feels like a knot then goes away. Character is dull/pressure 5/10 lasting 2-4 mins each episodes. Not associated with meals. Last colonoscopy 2002 wnl. H/o multiple abdominal surgeries. 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 723.1 NECK PAIN 728.87 MUSCLE WEAKNESS 780.09 GENERAL SYMPTOMS 780.79 FATIGUE 780.79 FATIGUE 784.0 HEADACHE 785.1 PALPITATIONS 786.00 DYSPNEA AND RESP ABNORMALITY UNSPEC 789.03 ABD PAIN RLQ 790.21 ABNORMAL FASTING BLOOD GLUCOSE V58.69 MANAGER ART USE OF OTHER MEDICATION(S) V70.0 ROUTINE GENERAL MEDICAL EXAMINATION V82.9 SPECIAL SCREENING FOR OTHER CONDITIONS CURRENT MEDICATION LIST: ALBUTEROL INHALATION AEROSOL SOLUTION 90 MCG/ACT, 1-2 INHAL Q 4 HOURS NEEDED MULTI-VITAMIN ORAL TABLET, 1 Every Morning ASPIRIN ORAL TABLET ENTERIC COATED 81 MG, 1 Every Morning DYAZIDE ORAL CAPSULE CONVENTIONAL 37.5-25 MG, 1 Two Times A Day SHELLY ORAL TABLET 180 MG, 1 Every Morning NEXIUM ORAL CAPSULE DELAYED RELEASE 40 MG, 1 Every Day ASTELIN NASAL SOLUTION 137 MCG/SPRAY, 2 sprays each nostril BID FLEXERIL ORAL TABLET 10 MG, 1 Three Times A Day, As Needed LEXAPRO ORAL TABLET 20 MG, 1 Every Day METOPROLOL TARTRATE ORAL TABLET 25 MG, QD ADVAIR DISKUS INHALATION MISCELLANEOUS 250-50 MCG/DOSE, 1 inhalation Two Times A Day LIPITOR ORAL TABLET 40 MG, QD CURRENT ALLERGY LIST: AUGMENTIN CODEINE ERYTHROMYCIN SULFA DRUGS TETRACYCLINE ROS: GENERAL: See HISTORY OF PRESENT ILLNESS. ENDOCRINE: No heat or cold intolerance, no excessive thirst. CARDIAC: No chest pain, palpitations, orthopnea, dyspnea on exertion, or paroxysmal nocturnal dyspnea. RESPIRATORY: See HISTORY OF PRESENT ILLNESS. : No frequency, urgency, hematuria or dysuria. GI: See HISTORY OF PRESENT ILLNESS. NEUROLOGIC: No weakness, dizziness, loss of consciousness, transient ischemic symptoms, or seizures. MUSCULOSKELETAL: NOTES MUSCLE CRAMPS. in legs at night PSYCHIATRIC: No increased nervousness, mood changes or depression. Coping well. Patient's history reviewed; no changes. PHYSICAL EXAMINATION: CONSTITUTIONAL: GENERAL APPEARANCE: Healthy appearing patient in no distress. EARS, NOSE, MOUTH AND THROAT: EARS: Tympanic membranes shiny without retraction. Canals unremarkable. Hearing grossly normal. NOSE (AND SINUS): No abnormality of the sinuses or nasal airways. ORAL: Inspection of gums, lips, palate, and teeth normal. No scars, lesions, or masses. Oral mucosaunremarkable with non-inflamed posterior pharynx. NECK/THYROID: REDUCED NECK MOTION, no carotid tenderness, JUGULAR VENOUS PULSATION ELEVATED AT 60. RESPIRATORY: Clear to auscultation and percussion. Normal respiratory effort. CARDIOVASCULAR: CARDIAC: Regular rhythm. No murmurs, rubs, or gallops. ARTERIAL: Normal pedal pulses. JUGULAR VEINS: Jugular veins within normal limits. EDEMA/VARICOSITIES OF EXTREMITIES: No edema. MUSCULOSKELETAL EXAM: HEAD AND NECK: MILDLY REDUCED LATERAL MOTION, MILDLY REDUCED FLEXION, TRAPEZIUS TENDERNESS PRESENT. SKIN: SKIN: Warm, dry, no diaphoresis, no significant lesions, irritation, rashes or ulcers. No induration, obvious subcutaneous nodules or tightening. NEUROLOGIC: CRANIAL NERVES: data center operator II-XII grossly intact. DEEP TENDON REFLEXES: Deep tendon reflexes 2+/4 and symmetrical. PSYCHIATRIC: Judgment appropriate. Oriented. Normal memory. Mood and affect appropriate. HISTORY: 780.79-FATIGUE The patient's malaise and fatigue have worsened. The patient's energy levels have declined. No recent laboratory work done. ASSESSMENT/PLAN: 493.90-ASTHMA UNSPECIFIED ASSESSMENT: The asthma has improved. The patient complains of a cough, denies shortness of breath, denies wheezing, symptoms are experienced weekly. No complications noted from the medication presently being used, Patient was given a nebulizer treatment in the office with good results. The patient is being seen by a primary care physician. Asthma Action Plan. MEDICATIONS: ADVAIR DISKUS INHALATION MISCELLANEOUS 250-50 MCG/DOSE, 1 inhalation Two Times A Day, 1 Dispensed, 5 Fills, 30 Duration/Days Supply, status: NEW PRESCRIPTION, 06/13/2006. ALBUTEROL INHALATION AEROSOL SOLUTION 90 MCG/ACT, 1-2 INHAL Q 4 HOURS NEEDED, 3 Dispensed, 3 Fills, status: NEW PRESCRIPTION, 12/20/2004. 780.79-FATIGUE Given h/o dark stools and fatigue will do hemoccult and check CBC to see if down from baseline. Pt has been healing from recent asthma exacerbation and suspect that sx are related to increased work of breathing although her sx are much improved from last week per records. She is achieving peak flows in the mid 400s from last weeks low 300s. She is using her rescue inhaler twice daily. She does have some night time cough that is improving. LAB ORDERS: Order number: [id number] Test Ordered: CBC W/ DIFFERENTIAL 3150 Order number: [id number] Test Ordered: OCCULT BLOOD, STOOL, (1-3 SPECIMENS) 2164 789.03-ABD PAIN RLQ H/o abdominal surgery for cholecystectomy, hysterectomy and appendectomy. History of IBD and diverticulitis but presentation atypical for those. Sx occur for a few minutes each time & feel like pressure, always in exactly the same place over her appendectomy scar. Warned about the possibility of an abdominal wall defect at the site of previous incision causing a hernia. Physical exam difficult to appreciate, no borborygmi identified over the area. 327.52-SLEEP RELATED LEG CRAMPS Given sx and lack of resolve with leg stretching in the past will try quinine. MEDICATIONS: QUININE SULFATE ORAL CAPSULE CONVENTIONAL 325 MG, QHS prn, 30 Dispensed, 3 Fills, status: NEW PRESCRIPTION, 07/15/2006. SPECIALTY REFERRAL: GENERAL SURGERY Dr. Mahogany Cisneros ph: [phone] fax: [phone]. 07/15/06 09:05 a Electronically signed by Ana Ferguson MD. TEACHING PHYSICIAN COMMENTS: I have reviewed the resident's note and I agree with the resident's evaluation and plan. S.P. Electronically Signed by: Sara Stroud MD on June Electronically Signed by: Shakeel Perales MD on Monday, July 24, 2006 * Nathan Ryan Conv Transcriptions - 09/02/2008 11:27 PM CDT TIME:09:22 am PATIENT`S HOME PHONE: PATIENT`S WORK PHONE: PATIENT`S INSURANCE: [facility] WHO TOOK THE CALL: Lori Mcrae A GENERAL INFORMATION PATIENT STATUS: Established Patient. PCP: Marty. ALTERNATIVE PHONE NUMBER: [phone] WHO CALLED: Patient called. SECTION 1: REQUESTED ACTION [email or web address] 07/15/06 at 09:23 am: Pt. needs another lab order from today written for [place] [facility]...pt. wasn't able to get in downstairs...please mail to home. DOCTOR`S RESPONSE: [email or web address] 07/15/06 at 11:49 am done. VAA Electronically Signed by: Ana Ferguson MD on Saturday, July 15, 2006 documented in this encounter Plan of Treatment Not on file documented as of this encounter Visit Diagnoses Not on filedocumented in this encounter Care Teams Golf Professional Relationship Specialty Start Date End Date Jaswant Kirby MD PCP - General Family Practice 08/27/16 documented as of this encounter
--- OUTSIDE RECORDS SUMMARY | 2025-02-10 10:55 | XMS_ITS | Encounter Summary ---
Author Organization [facility] Address [address] [place] [address] Care Team Providers Care Detective Chief Name Role Phone Jaswant Kirby MD Primary Care Provider Unavail able Encounter Details Date Type Department Care Team (Latest Contact Info) Description 08/06/2005 Outpatient Historical [facility] [place] [address] [facility] [place] [address] SCREENING FOR OSTEOPOROSIS (Primary Dx) Social History Tobacco Use Types Packs/Day Years Used Date Smoking Tobacco: Never Assessed Comments Unknown Sex and Gender Information Value Date Recorded Sex Assigned at Not on file Legal Sex Female 2:40 AM DIRECTOR WHOLESALE Gender Identity Not on file Sexual Orientation Not on file documented as of this encounter Plan of Treatment Not on file documented as of this encounter Visit Diagnoses Diagnosis Special screening for osteoporosis- Primary documented in this encounter Care Teams Detective Chief Relationship Specialty Start Date End Date Jaswant Kirby MD PCP - General Family Practice 08/27/16 documented as of this encounter
--- OUTSIDE RECORDS SUMMARY | 2025-02-10 10:55 | XMS_ITS | Encounter Summary ---
Author Organization [facility] Address [address] [place] [address] Care Team Providers Care Mill Tender Washing Name Role Phone Jaswant Kirby MD Primary Care Provider Unavail able Encounter Details Date Type Department Care Team (Latest Contact Info) Description 10/01/2005 Outpatient Historical [facility] [place], Helga Cordoba MD [address] [place] [address] OTHER ALTERATION OF CONSCIOUSNESS (Primary Dx) Social History Tobacco Use Types Packs/Day Years Used Date Smoking Tobacco: Never Assessed Comments Unknown Sex and Gender Information Value Date Recorded Sex Assigned at Not on file Legal Sex Female 2:40 AM WILLOWER Gender Identity Not on file Sexual Orientation Not on file documented as of this encounter Plan of Treatment Not on file documented as of this encounter Visit Diagnoses Diagnosis Other alteration of consciousness- Primary documented in this encounter Care Teams Mill Tender Washing Relationship Specialty Start Date End Date Jaswant Kirby MD PCP - General Family Practice 08/27/16 documented as of this encounter
--- OUTSIDE RECORDS SUMMARY | 2025-02-10 10:55 | XMS_ITS | Encounter Summary ---
Author Organization [facility] Address [address] [facility] Attn: Epic Prelude ADT [place] [address] Care Team Providers Care Pumper Gauger Apprentice Name Role Phone Jaswant Kirby MD Primary Care Provider Unavail able Encounter Details Date Type Department Care Team (Latest Contact Info) Description 12/14/2005 Orders Only Ana Ferguson MD Social History Tobacco Use Types Packs/Day Years Used Date Smoking Tobacco: Never Assessed Comments Unknown Sex and Gender Information Value Date Recorded Sex Assigned at Not on file Legal Sex Female 2:40 AM RELAY ADJUSTER Gender Identity Not on file Sexual Orientation Not on file documented as of this encounter Progress Notes * Interface, Nathan Stl Conv Transcriptions - 09/02/2008 12:18 PM CDT TIME:09:50 am PATIENT`S HOME PHONE: PATIENT`S WORK PHONE: PATIENT`S INSURANCE: [facility] WHO TOOK THE CALL: Elif Brunson M GENERAL INFORMATION PATIENT STATUS: Established Patient. PCP: Marty. ALTERNATIVE PHONE NUMBER: [phone] WHO CALLED: Patient called. SECTION 1: REQUESTED ACTION genesis 12/14/05 at 09:50 am: TEST RESULT: Patient requests test results had echo done on 11/16 and had blood work done the following week. SECTION 2: Echo: CONCLUSION 1. Concentric left ventricular hypertrophy with normal left ventricular systolic function. 2. Moderate left atrial enlargement. 3. Mild mitral annular calcification with trivial mitral regurgitation. 4. Doppler evidence of stage I left ventricular diastolic dysfunction. 5. Mild tricuspid regurgitation. 6. Normal aortic valve function. Called pt to discuss. Results from quest, pending. Continue Dyazide 37.5. Called quest: 11/22 TG 169, Chol 257, HDL 86, LDL 137, ratio 3.0, ALT 23 cell. DOCTOR`S RESPONSE: kristine 12/14/05 at 03:21 pm Will mail out as pt uses [employer]. MEDICATIONS: LIPITOR ORAL TABLET 40 MG, QD, 90 Dispensed, 1 Fills, status: NEW PRESCRIPTION, 12/14/2005. NEXIUM ORAL CAPSULE DELAYED RELEASE 40 MG TABLETS, 1 Every Day, 90 Dispensed, 3 Fills, 90 Duration/Days Supply, status: CONTINUED, 12/14/2005. METOPROLOL TARTRATE ORAL TABLET 25 MG, QD, 90 Dispensed, 1 Fills, status: NEW PRESCRIPTION, 12/14/2005. documented in this encounter Plan of Treatment Not on file documented as of this encounter Visit Diagnoses Not on filedocumented in this encounter Care Teams Pumper Gauger Apprentice Relationship Specialty Start Date End Date Jaswant Kirby MD PCP - General Family Practice 08/27/16 documented as of this encounter
--- OUTSIDE RECORDS SUMMARY | 2025-02-10 10:55 | XMS_ITS | Encounter Summary ---
Author Organization [facility] Address [address] [place] [address] Care Team Providers Care Aircraft Pneudraulics Repairer Name Role Phone Jaswant Kirby MD Primary Care Provider Unavail able Encounter Details Date Type Department Care Team (Late st Contact Info) Description 10/05/2005 Outpatient Historical [facility] Family Medicine [facility] [address] [facility] [address] [place] [address] Helga Soto MD [address] [facility] [place] [address] Social History Tobacco Use Types Packs/Day Years Used Date Smoking Tobacco: Never Assessed Comments Unknown Sex and Gender Information Value Date Recorded Sex Assigned at Not on file Legal Sex Female 2:40 AM RESEARCH SPECIALIST Gender Identity Not on file Sexual Orientation Not on file documented as of this encounter Last Filed Vital Signs Vital Sign Reading Time Taken Comments Blood Pressure 130/80 10/05/2005 4:30 PM RESEARCH SPECIALIST Pulse 60 10/05/2005 4:30 PM RESEARCH SPECIALIST Temperature - - Respiratory Rate - - Oxygen Saturation - - Inhaled Oxygen Concentration - - Weight 84.4 kg (186 lb) 10/05/2005 4:30 PM RESEARCH SPECIALIST Height - - Body Mass Index - - documented in this encounter Plan of Treatment Not on file documented as of this encounter Visit Diagnoses Not on filedocumented in this encounter Care Teams Aircraft Pneudraulics Repairer Relationship Specialty Start Date End Date Jaswant Kirby MD PCP - General Family Practice 08/27/16 documented as of this encounter
--- OUTSIDE RECORDS SUMMARY | 2025-02-10 10:55 | XMS_ITS | Encounter Summary ---
Author Organization [facility] Address [address] [place] [address] Care Team Providers Care Manipulator Operator Name Role Phone Jaswant Kirby MD Primary Care Provider Unavail able Encounter Details Date Type Department Care Team (Late st Contact Info) Description 10/01/2005 Outpatient Historical [facility] Blood Flow [address] [place] [address] Red Mata MD NO ADDRESS ON FILE Social History Tobacco Use Types Packs/Day Years Used Date Smoking Tobacco: Never Assessed Comments Unknown Sex and Gender Information Value Date Recorded Sex Assigned at Not on file Legal Sex Female 2:40 AM 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
--- OUTSIDE RECORDS SUMMARY | 2025-02-10 10:55 | XMS_ITS | Encounter Summary ---
Author Organization [facility] Address [address] [place] [address] Care Team Providers Care Trade Show Specialist Name Role Phone Jaswant Kirby MD Primary Care Provider Unavail able Encounter Details Date Type Department Care Team (Late st Contact Info) Description 12/11/2006 Orders Only [facility] Family Medicine [facility] [address] [facility] [address] [place] [address] [place] [address] [address] [facility] [place] [address] Social History Tobacco Use Types Packs/Day Years Used Date Smoking Tobacco: Never Assessed Comments Unknown Sex and Gender Information Value Date Recorded Sex Assigned at Not on file Legal Sex Female 2:40 AM THERAPEUTIC DIETITIAN Gender Identity Not on file Sexual Orientation Not on file documented as of this encounter Plan of Treatment Not on file documented as of this encounter Visit Diagnoses Not on filedocumented in this encounter Care Teams Trade Show Specialist Relationship Specialty Start Date End Date Jaswant Kirby MD PCP - General Family Practice 08/27/16 documented as of this encounter
--- OUTSIDE RECORDS SUMMARY | 2025-02-10 10:55 | XMS_ITS | Encounter Summary ---
Author Organization [facility] Address [address] [place] [address] Care Team Providers Care Take Down Inspector Name Role Phone Jaswant Kirby MD Primary Care Provider Unavail able Encounter Details Date Type Department Care Team (Late st Contact Info) Description 03/22/2006 Outpatient Historical [facility] Family Medicine [place] Freddy [address] [address] [facility] [address] [place] [address] [place] [address] [address] [facility] [place] [address] Social History Tobacco Use Types Packs/Day Years Used Date Smoking Tobacco: Never Assessed Comments Unknown Sex and Gender Information Value Date Recorded Sex Assigned at Not on file Legal Sex Female 2:40 AM CURING ROOM WORKER Gender Identity Not on file Sexual Orientation Not on file documented as of this encounter Last Filed Vital Signs Vital Sign Reading Time Taken Comments Blood Pressure 116/70 03/22/2006 8:20 AM CDT Pulse 62 03/22/2006 8:20 AM CDT Temperature - - Respiratory Rate - - Oxygen Saturation - - Inhaled Oxygen Concentration - - Weight 88 kg (194 lb) 03/22/2006 8:20 AM CDT Height - - Body Mass Index - - documented in this encounter Plan of Treatment Not on file documented as of this encounter Visit Diagnoses Not on filedocumented in this encounter Care Teams Take Down Inspector Relationship Specialty Start Date End Date Jaswant Kirby MD PCP - General Family Practice 08/27/16 documented as of this encounter
--- OUTSIDE RECORDS SUMMARY | 2025-02-10 10:55 | XMS_ITS | Encounter Summary ---
Author Organization [facility] Address [address] [place] [address] Care Team Providers Care Railway Head Tender Name Role Phone Jaswant Kirby MD Primary Care Provider Unavail able Encounter Details Date Type Department Care Team (Latest Contact Info) Description 11/16/2005 Outpatient Historical [facility] [place] [address] [facility] [place] [address] TRICUSPID VALVE DISEASE (Primary Dx) Social History Tobacco Use Types Packs/Day Years Used Date Smoking Tobacco: Never Assessed Comments Unknown Sex and Gender Information Value Date Recorded Sex Assigned at Not on file Legal Sex Female 2:40 AM HAT LINER Gender Identity Not on file Sexual Orientation Not on file documented as of this encounter Plan of Treatment Not on file documented as of this encounter Visit Diagnoses Diagnosis Diseases of tricuspid valve- Primary documented in this encounter Care Teams Railway Head Tender Relationship Specialty Start Date End Date Jaswant Kirby MD PCP - General Family Practice 08/27/16 documented as of this encounter
--- OUTSIDE RECORDS SUMMARY | 2025-02-10 10:55 | XMS_ITS | Encounter Summary ---
Author Organization [facility] Address [address] [place] [address] Care Team Providers Care Lift Operator Name Role Phone Jaswant Kirby MD Primary Care Provider Unavail able Encounter Details Date Type Department Care Team (Late st Contact Info) Description 02/21/2007 Outpatient Historical [facility] Family Medicine [place] [address] [address] [facility] [address] [place] [address] [place] [address] [place] [address] Social History Tobacco Use Types Packs/Day Years Used Date Smoking Tobacco: Never Assessed Comments Unknown Sex and Gender Information Value Date Recorded Sex Assigned at Not on file Legal Sex Female 2:40 AM AMMUNITION COMPONENTS INSPECTOR Gender Identity Not on file Sexual Orientation Not on file documented as of this encounter Last Filed Vital Signs Vital Sign Reading Time Taken Comments Blood Pressure 118/70 02/21/2007 4:30 PM CDT Pulse 80 02/21/2007 4:30 PM CDT Temperature - - Respiratory Rate - - Oxygen Saturation - - Inhaled Oxygen Concentration - - Weight 87.1 kg (192 lb) 02/21/2007 4:30 PM CDT Height - - Body Mass Index 35.12 06/13/2006 9:45 AM CDT documented in this encounter Plan of Treatment Not on file documented as of this encounter Visit Diagnoses Not on filedocumented in this encounter Care Teams Lift Operator Relationship Specialty Start Date End Date Jaswant Kirby MD PCP - General Family Practice 08/27/16 documented as of this encounter
--- OUTSIDE RECORDS SUMMARY | 2025-02-10 10:55 | XMS_ITS | Encounter Summary ---
Author Organization [facility] Address [address] [place] [address] Care Team Providers Care Research Worker Kitchen Name Role Phone Jaswant Kirby MD Primary Care Provider Unavail able Encounter Details Date Type Department Care Team (Late st Contact Info) Description 11/15/2006 Outpatient Historical [facility] [address] [place] [address] Blayne Maki MD NO ADDRESS ON FILE Social History Tobacco Use Types Packs/Day Years Used Date Smoking Tobacco: Never Assessed Comments Unknown Sex and Gender Information Value Date Recorded Sex Assigned at Not on file Legal Sex Female 2:40 AM ROUTE AGENT Gender Identity Not on file Sexual Orientation Not on file documented as of this encounter Plan of Treatment Not on file documented as of this encounter Visit Diagnoses Not on filedocumented in this encounter Care Teams Research Worker Kitchen Relationship Specialty Start Date End Date Jaswant Kirby MD PCP - General Family Practice 08/27/16 documented as of this encounter
--- OUTSIDE RECORDS SUMMARY | 2025-02-10 10:55 | XMS_ITS | Clinical Summary ---
Author Organization [facility] Address [address] [place] [address] Care Team Providers Care Lye Peel Operator Name Role Phone Claudia Feliciano RN Unavailable Unavailable Daisy Henriquez RN Unavailable Unavailab Emely Plasencia MD Primary Care Provider Source Comments [facility],non-owned Affiliates and Associated Physician Practices is amultiple site organization consisting of ambulatory clinics and hospital sitesin [place], [place], [place] and [place]. This disclosure is being madepursuant to the Care Everywhere program and may not contain all information available regarding this patient. Last updated 18.[facility] Allergies Active Allergy Reactions Criticality Noted Date Comments Codeine 2015 Erythromycin GI Discomfort Meperidine Medium 11/12/2009 Other reaction(s): Delirium; dilaudid Oxycodone-Acetaminophe n Nausea and/or Vomiting 11/14/2012 Tolerates hydrocodone and tramadol Phenytoin Unknown 02/10/2013 Potassium GI Discomfort Sulfa Drugs 01/16/2005 Other reaction(s): Other (See Comments) gi Tetracycline 2015 Medications * Be aware that medications may not be up to date on this document. Alwaysverify current medications with the patient. Medication Sig Dispensed Refills Start Date End Date Status fluticasone-salmet greta (ADVAIR DISKUS) 250-50 MCG/DOSE inhaler 07/24/2016 Active ALPRAZolam (XANAX) 0.5 MG tablet Take 0.5 mg by mouth daily Active atorvastatin (LIPITOR) 40 MG tablet Take 80 mg by mouth once daily Active benazepril (LOTENSIN) 5 MG tablet Take 5 mg by mouth daily with a glass of water Active biotin 300 MCG tablet Take 300 mcg by mouth once daily Active fexofenadine (SHELLY) 60 MG tablet Take 60 mg by mouth daily Active metoprolol succinate XL 24hr (TOPROL XL) 25 MG tablet Take 25 mg by mouth at bedtime Active cyanocobalamin (VITAMIN B-12) 100 MCG tablet Active albuterol HFA (PROVENTIL;VENTOLI N;PROAIR) 108 (90 BASE) MCG/ACT inhaler Inhale 2 Puffs by mouth every 4 hours 07/15/2009 Active azelastine (ASTELIN) 0.1 % nasal spray Mcdowell 2 Sprays into each nostril 2 times daily 07/21/2008 Active benzonatate (TESSALON) 100 MG capsule Take 100 mg by mouth 3 times daily as needed For bronchitis 04/23/2017 Active Calcium Carb-Cholecalcifer ol (OYSTER SHELL CALCIUM) 500-400 MG-UNIT Active estradiol (ESTRACE) 0.1 MG/GM vaginal cream Insert 0.5 g into the vagina 09/23/2019 Active famotidine (PEPCID) 40 MG tablet Take 40 mg by mouth once daily 08/23/2020 Active TOM CONTOUR NEXT TEST test strip USE TO CHECK BLOOD SUGAR DAILY 07/27/2020 Active hyoscyamine SL (LEVSIN SL) 0.125 MG tablet Take 1 tablet (0.125 mg total) by mouth every 2 (two) hours as needed for cramping. Dissolve tab under the tongue. 11/26/2019 Active meloxicam (MOBIC) 15 MG tablet Take 15 mg by mouth once daily 11/07/2020 Active metoclopramide (REGLAN) 10 MG tablet Take 10 mg by mouth 2 times daily 08/18/2020 Active aspirin (ASPIRIN) 81 MG chew tablet Take 1 (one) tablet by mouth once daily 12/08/2020 Active Additional Information Patient not taking.Reported on 07/19/2021 butalbital-acetami nophen-caffeine (FIORICET) 50-325-40 MG tablet TAKE 1 TABLET BY MOUTH TWICE A DAY 01/19/2021 Active butalbital-acetami nophen-caffeine (FIORICET) 50-325-40 MG tablet Take 1 (one) tablet by mouth every 4 hours as needed for Migraine 20 tablet 3 07/19/2021 Active buPROPion XL 24hr (WELLBUTRIN-XL) 150 MG tablet TAKE 1 TABLET BY MOUTH EVERY DAY 30 tablet 6 07/24/2021 Active clopidogrel (PLAVIX) 75 MG tablet TAKE 1 TABLET BY MOUTH DAILY 90 tablet 3 12/04/2021 Active topiramate (TOPAMAX) 50 MG tablet TAKE 1 TABLET BY MOUTH TWICE A DAY 180 tablet 1 04/01/2022 Active topiramate (TOPAMAX) 25 MG tablet TAKE 1 TABLET BY MOUTH AT BEDTIME ALONG WITH THE 50 MG TABLET 90 tablet 1 04/24/2022 Active Active Problems Problem Noted Date Diagnosed Date Subclavian arterial stenosis 12/06/2020 Family History Medical History Relation Name Comments CAD (Coronary Artery Disease) Other Relation Name Status Comments Other Social History Tobacco Use Types Packs/Day Years Used Date Smoking Tobacco: Never Smokeless Tobacco: Never Alcohol Use Standard Drinks/Week Comments No 0 (1 standard drink = 0.6 oz pur e alcohol) Sex and Gender Information Value Date Recorded Sex Assigned at Not on file Gender Identity Not on file Sexual Orientation Not on file Last Filed Vital Signs Vital Sign Reading Time Taken Comments Blood Pressure 140/80 12/06/2021 12:59 PM BANK MESSENGER Pulse 65 12/06/2021 12:59 PM BANK MESSENGER Temperature 36.8 C (98.2 F) 12/07/2020 8:10 AM BANK MESSENGER Respiratory Rate 16 12/06/2021 12:59 PM BANK MESSENGER Oxygen Saturation 99% 12/06/2021 12:59 PM BANK MESSENGER Inhaled Oxygen Concentration - - Weight 72.6 kg (160 lb) 12/06/2021 12:59 PM BANK MESSENGER Height 154.9 cm (5' 1 ) 12/06/2021 12:59 PM BANK MESSENGER Body Mass Index 30.23 12/06/2021 12:59 PM BANK MESSENGER Plan of Treatment Health Maintenance Due Date Last Done Comments BONE DENSITY TESTING 1945 MEDICARE AWV 12 MONTHS 1945 DTAP/TDAP/TD VACCINES (1 - Tdap) 1962 PNEUMOCOCCAL VACCINE 50+ (1 of 1 - PCV) 1993 ZOSTER VACCINE (1 of 2) 1993 Respiratory Syncytial Virus (RSV) Vaccine Pt: or over 60 yrs (1 - 1-dose 75+ series) 2018 COVID-19 VACCINE (1 - season) 2024 INFLUENZA VACCINE (#1) 2024 0, 09/19/2019, 09/08/2018, Additional history exists DEPRESSION SCREENING 11/25/2024 MEDICARE AWV CALENDAR YEAR 2024 HEPATITIS B VACCINE Aged Out No longe r eligible based on patient's age to complete this topic HIB VACCINE Aged Out No longer eligi ble based on patient's age to complete this topic HPV VACCINE Aged Out No longer eligi ble based on patient's age to complete this topic MENINGOCOCCAL (Group B) VACCINE SHARED DECISION-MAKING Aged Out No longer eligible based on patient's age to complete this topic MENINGOCOCCAL GROUPS A/C/Y/W VACCINE Aged Out No longer eligible based on patient's age to complete this topic Medical Devices Implanted Type Area Hat Finishing Materials Preparer Device Identifier Shelf Expiration Date Model / Serial / Lot Cmnt Bone Cblt G-Hv 40gm Hvisc Gnta Strl Implanted:Qty: 1 on 07/09/2017 by Spencer [place] MD at [facility] Left: Knee [employer] 08/24/2018 [id number] / / [id number] Sharif Leary 2 $200 Rebate Implanted:Qty: 1 on 07/09/2017 by Spencer [place] MD at [facility] K2A JOURNEY SNORTHO BILL ONLY / / Patellar Component Implanted:Qty: 1 on 07/09/2017 by Spencer [place] MD at [facility] Left: Knee 04/07/2026 [id number] / / [id number] Femoral Component Implanted:Qty: 1 on 07/09/2017 by Spencer [place] MD at [facility] Left: Knee 05/12/2027 [id number] / / [id number] Tibial Baseplate Implanted:Qty: 1 on 07/09/2017 by Spencer [place] MD at [facility] Left: Knee 05/22/2027 [id number] / / [id number] 4.0mm Screw Implanted:Qty: 1 on 07/09/2017 by Spencer [place] MD at [facility] Left: Knee [id number] / / Plate Implanted:Qty: 1 on 07/09/2017 by Spencer [place] MD at [facility] Left: Knee [id number] / / Screw Implanted:Qty: 1 on 07/09/2017 by Spencer [place] MD at [facility] Left: Knee [id number] / / Screw Implanted:Qty: 1 on 07/09/2017 by Spencer [place] MD at [facility] Left: Knee [id number] / / Locking Screw Implanted:Qty: 1 on 07/09/2017 by Spencer [place] MD at [facility] Left: Knee [id number] / / Advance Directives * Full Code (Latest Code Status on File) Date Activated Date Inactivated Comments 07/09/2017 12:04 PM 07/12/2017 3:45 PM Care Teams Lye Peel Operator Relationship Specialty Start Date End Date Emely Cruz MD PCP - General Internal Medicine 11/16/20 Claudia Feliciano, RN Registered Nurse 06/24/17 Daisy Henriquez RN Registered Nurse 07/09/17
--- OUTSIDE RECORDS SUMMARY | 2025-02-10 10:55 | XMS_ITS | Encounter Summary ---
Author Organization [facility] Address [address] [place] [address] Care Team Providers Care Budget Accountant Name Role Phone Jaswant Kirby MD Primary Care Provider Unavail able Encounter Details Date Type Department Care Team (Late st Contact Info) Description 04/16/2006 Outpatient Historical [facility] ([facility]) [address] [place] [address] Blayne Maki MD NO ADDRESS ON FILE Social History Tobacco Use Types Packs/Day Years Used Date Smoking Tobacco: Never Assessed Comments Unknown Sex and Gender Information Value Date Recorded Sex Assigned at Not on file Legal Sex Female 2:40 AM RECOVERY ROOM RN Gender Identity Not on file Sexual Orientation Not on file documented as of this encounter Plan of Treatment Not on file documented as of this encounter Visit Diagnoses Not on filedocumented in this encounter Care Teams Budget Accountant Relationship Specialty Start Date End Date Jaswant Kirby MD PCP - General Family Practice 08/27/16 documented as of this encounter
--- OUTSIDE RECORDS SUMMARY | 2025-02-10 10:55 | XMS_ITS | Clinical Summary ---
Author Organization [facility] Address [address] [place] [address] Care Team Providers Care City Alderman Name Role Phone Jason Strickland MD Primary Care Provider [phone] Allergies Active Allergy Reactions Criticality Noted Date Comments Amoxicillin-Pot Clavulanate Diarrhea,Nausea Only,Vomiting Low 06/11/2004 Atorvastatin Myalgias Low 10/28/2007 Codeine Nausea and Vomiting,Other (see comment),Unknown Low 06/11/2004 gi Erythromycin Nausea and Vomiting,Other (see comment),GI Upset,Unknown Low 06/11/2004 Meperidine Hallucinations,Unkno wn Medium 11/12/2009 Other reaction(s): Delirium; dilaudid Oxycodone Unknown 03/04/2023 Oxycodone-Acetaminophen Other (see comment) 08/2023 Sulfa Antibiotics Unknown 01/16/2005 Other reaction(s): Other (See Comments) gi Tetracycline GI Upset Low 03/04/2023 Severe Medications albuterol sulfate HFA 108 (90 Base) MCG/ACT inhaler INHALE 1 PUFF BY MOUTH 4 TIMES A DAY NEEDED FOR SHORTNESS OF BREATH 3 Active ALPRAZolam (XANAX) 0.5 MG tablet Take 1 tablet (0.5 mg total) by mouth daily. Active atorvastatin (LIPITOR) 40 MG tablet Take 2 tablets (80 mg total) by mouth daily. Active buPROPion XL (WELLBUTRIN XL) 150 MG 24 hr tablet Take 1 tablet (150 mg total) by mouth every morning. 2 Active clopidogrel (PLAVIX) 75 MG tablet Take 1 tablet (75 mg total) by mouth daily. 3 Active ezetimibe (ZETIA) 10 MG tablet Take 1 tablet (10 mg total) by mouth daily. Active famotidine (PEPCID) 40 MG tablet Take 1 tablet (40 mg total) by mouth daily. 3 Active fluticasone propionate (FLONASE) 50 MCG/ACT nasal spray SPRAY 1 SPRAY INTO EACH NOSTRIL DAILY 3 Active WIXELA INHUB 250-50 MCG/ACT inhaler Inhale 1 puff into the lungs 2 (two) times daily. 3 Active amLODIPine (NORVASC) 2.5 MG tablet Take 1 tablet (2.5 mg total) by mouth daily. 3 Active metoclopramide (REGLAN) 10 MG tablet 10 MG ORALLY TWICE A DAY NEEDED FOR NAUSEA AND VOMITING 3 Active atorvastatin (LIPITOR) 80 MG tablet Take 1 tablet (80 mg total) by mouth daily. 3 Active simvastatin (ZOCOR) 20 MG tablet daily. Active orphenadrine ER (NORFLEX) 100 MG TABLET SR 12 HR 12 hr tabletIndicatio ns:Occipital neuralgia of left side Take 1 tablet (100 mg total) by mouth 2 (two) times daily. 60 tablet 1 3 Active nitrofurantoin, macrocrystal-mo nohydrate, (MACROBID) 100 MG capsule 3 Active gabapentin (NEURONTIN) 100 MG capsuleIndicati ons:Occipital neuralgia of left side Take 1 capsule (100 mg total) by mouth 3 (three) times daily. 270 capsule 3 4 07/30/20 25 Active Active Problems Problem Noted Date Diagnosed Date Chronic nonintractable headache, unspecified hea dache type 07/03/2023 Numbness and tingling in right hand 04/23/2023 Occipital neuralgia of left side 03/04/2023 History of fusion of cervical spine 03/04/2023 Neck pain 03/04/2023 Other cervical disc degenera tion, unspecified cervical region 03/04/2023 Family History Medical History Relation Comments Heart Disease Father Heart Disease Mother Heart Disease Sister 1 Heart Disease Sister 2 Relation Status Comments Father Mother Sister 1 Sister 2 Alive Social History Tobacco Use Types Packs/Day Years Used Date Smoking Tobacco: Never Smokeless Tobacco: Never Tobacco Cessation:Counseling Given: No Alcohol Use Standard Drinks/Week Comments Not Currently 0 (1 standard drink = 0.6 oz pur e alcohol) Comments No Sex and Gender Information Value Date Recorded Sex Assigned at Not on file Legal Sex Female 2:39 PM CDT Gender Identity Not on file Sexual Orientation Not on file Last Filed Vital Signs Vital Sign Reading Time Taken Comments Blood Pressure 126/69 07/30/2024 9:57 AM CDT Pulse 65 07/30/2024 9:31 AM CDT Temperature 36.4 C (97.5 F) 07/30/2024 9:31 AM CDT Respiratory Rate 16 09/11/2023 1:12 PM CDT Oxygen Saturation 98% 07/30/2024 9:31 AM CDT Inhaled Oxygen Concentration - - Weight 74.5 kg (164 lb 4.8 oz) 07/30/2024 9:31 A M CDT Height 154.9 cm (5' 1 ) 07/30/2024 9:31 AM CDT Body Mass Index 31.04 07/30/2024 9:31 AM CDT Plan of Treatment Upcoming Encounters Date Type Department Care Team (Late st Contact Info) Description 07/30/2025 11:20 AM CDT Office Visit [facility] - [address], [address] [place] [address] Ariana Fofana MD [address] [place] [address] Health Maintenance Due Date Last Done Comments Annual Medicare Wellness Visit 2008 RSV Immunization or 60+ Years (1 - 1-dose 75+ series) 2018 COVID-19 Vaccine ( season) 2024 08/30/2022, 03/27/2022, 09/25/2021, Additional history exists Influenza Adult (#1) 2024 07/27/2020, 09/19/2019, 09/08/2018, Additional history exists PHQ-2 (Physician [place]) 11/25/2024 DTaP, Tdap and Td Vaccines (3 - Td or Tdap) 06/05/2029 06/05/2019, 07/21/2008, 11/25/1997, Additional history exists Pneumococcal Vaccine: 65+ Years Completed 12/25/2016, 11/11/2008 Dexa Scan (General) Completed 12/29/2018, 9 Zoster Vaccines Completed 01/23/2022, 10/22/2021 Meningococcal B Vaccine Aged Out No l onger eligible based on patient's age to complete this topic Meningococcal Vaccine Aged Out No vanessa yong eligible based on patient's age to complete this topic RSV Immunizations Under 20 Months Aged Out No longer eligible based on patient's age to complete [place] [address] [employer]SS[place] Care Teams City Alderman Relationship Specialty Start Date End Date Jason Strickland MD [address] [place] [address] PCP - General FAMILY PRACTICE 03/04/23
--- OUTSIDE RECORDS SUMMARY | 2025-02-10 10:55 | XMS_ITS | Encounter Summary ---
Author Organization [facility] Address [address] [place] [address] Care Team Providers Care Slip Tender Name Role Phone Jaswant Kirby MD Primary Care Provider Unavail able Encounter Details Date Type Department Care Team (Late st Contact Info) Description 03/01/2006 Outpatient Historical [facility] Family Medicine [facility] [address] [facility] [address] [place] [address] SwathiHelga Varela MD [address] [facility] [place] [address] Social History Tobacco Use Types Packs/Day Years Used Date Smoking Tobacco: Never Assessed Comments Unknown Sex and Gender Information Value Date Recorded Sex Assigned at Not on file Legal Sex Female 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 Gender Identity Not on file Sexual Orientation Not on file documented as of this encounter Last Filed Vital Signs Vital Sign Reading Time Taken Comments Blood Pressure 122/66 03/01/2006 4:30 PM CDT Pulse 68 03/01/2006 4:30 PM CDT Temperature - - Respiratory Rate - - Oxygen Saturation - - Inhaled Oxygen Concentration - - Weight 88.5 kg (195 lb) 03/01/2006 4:30 PM CDT Height - - Body Mass Index - - documented in this encounter Plan of Treatment Not on file documented as of this encounter Visit Diagnoses Not on filedocumented in this encounter Care Teams Slip Tender Relationship Specialty Start Date End Date Jaswant Kirby MD PCP - General Family Practice 08/27/16 documented as of this encounter
--- OUTSIDE RECORDS SUMMARY | 2025-02-10 10:55 | XMS_ITS | Encounter Summary ---
Author Organization [facility] Address [address] [place] [address] Care Team Providers Care Dock Builder Name Role Phone Jaswant Kirby MD Primary Care Provider Unavail able Encounter Details Date Type Department Care Team (Late st Contact Info) Description 11/05/2006 Outpatient Historical [facility] Family Medicine [facility] [address] [address] Ana Ferguson MD Cough (Primary Dx) Social History Tobacco Use Types Packs/Day Years Used Date Smoking Tobacco: Never Assessed Comments Unknown Sex and Gender Information Value Date Recorded Sex Assigned at Not on file Legal Sex Female 2:40 AM SUPERVISOR PRE WAVE Gender Identity Not on file Sexual Orientation Not on file documented as of this encounter Plan of Treatment Not on file documented as of this encounter Visit Diagnoses Diagnosis Cough- Primary documented in this encounter Care Teams Dock Builder Relationship Specialty Start Date End Date Jaswant Kirby MD PCP - General Family Practice 08/27/16 documented as of this encounter
--- OUTSIDE RECORDS SUMMARY | 2025-02-10 10:55 | XMS_ITS | Encounter Summary ---
Author Organization [facility] Address [address] [place] [address] Care Team Providers Care Self Pay Specialist Name Role Phone Jaswant Kirby MD Primary Care Provider Unavail able Encounter Details Date Type Department Care Team (Late st Contact Info) Description 06/13/2006 Outpatient Historical [facility] Family Medicine [facility] [address] [place] [address] [place] [address] [employer] [place] [address] Social History Tobacco Use Types Packs/Day Years Used Date Smoking Tobacco: Never Assessed Comments Unknown Sex and Gender Information Value Date Recorded Sex Assigned at Not on file Legal Sex Female 2:40 AM EVENT SPECIALIST Gender Identity Not on file Sexual Orientation Not on file documented as of this encounter Last Filed Vital Signs Vital Sign Reading Time Taken Comments Blood Pressure 114/68 06/13/2006 9:45 AM CDT Pulse 68 06/13/2006 9:45 AM CDT Temperature - - Respiratory Rate - - Oxygen Saturation - - Inhaled Oxygen Concentration - - Weight 87.5 kg (193 lb) 06/13/2006 9:45 AM CDT Height 157.5 cm (5' 2 ) 06/13/2006 9:45 AM CDT Body Mass Index 35.3 06/13/2006 9:45 AM CDT documented in this encounter Plan of Treatment Not on file documented as of this encounter Visit Diagnoses Not on filedocumented in this encounter Care Teams Self Pay Specialist Relationship Specialty Start Date End Date Jaswant Kirby MD PCP - General Family Practice 08/27/16 documented as of this encounter
--- OUTSIDE RECORDS SUMMARY | 2025-02-10 10:55 | XMS_ITS | Encounter Summary ---
Author Organization [facility] Address [address] [facility] [address] [place] [address] Care Team Providers Care National Accounts Sales Name Role Phone Guero Davis MD Primary Care Provider [phone] Guero Davis MD Primary Care Provider [phone] Guero Davis MD Primary Care Provider [phone] Guero Davis MD Primary Care Provider [phone] Jaswant Kirby MD Primary Care Provider [phone] Guero Davis MD Primary Care Provider [phone] Jaswant Kirby MD Primary Care Provider [phone] Jaswant Kirby MD Primary Care Provider [phone] Guero Davis MD Primary Care Provider [phone] Emely Cruz MD Primary Care Provider Guero Hernandez MD Unavailable [phone] Emely Cruz MD Primary Care Provider Jason Strickland MD Primary Care Provider [phone] Encounter Details Date Type Department Care Team (Late st Contact Info) Description 11/27/2016 Orders Only [facility] ProviderGini MD [address] [place] [address] Social History Tobacco Use Types Packs/Day Years Used Date Smoking Tobacco: Never Alcohol Use Standard Drinks/Week Comments No 0 (1 standard drink = 0.6 oz pur e alcohol) Comments Unknown Sex and Gender Information Value Date Recorded Sex Assigned at Not on file Legal Sex Female 12:57 AM LEI MAKER Gender Identity Female 05/17/2022 2:15 PM CDT Sexual Orientation Straight 05/17/2022 2: 15 PM CDT documented as of this encounter Plan of Treatment Not on file documented as of this encounter Procedures Procedure Name Priority Date/Time Associated Diagnosis Comments CARDIOLOGY REPORT 11/27/2016 documented in this encounter Results * CARDIOLOGY REPORT (11/27/2016) Anatomical Region Laterality Modality Other Narrative 11/27/2016 Ordered by an unspecified provider. Historical Provider [facility] ANT NIX Final Result documented in this encounter Visit Diagnoses Not on filedocumented in this encounter Additional Health Concerns Infection Onset Date Last Indicated Resolved Time COVID: Suspected 12/12/2020 12/12/2020 12/26/2020 3:06 AM LEI MAKER documented as of this encounter Care Teams National Accounts Sales Relationship Specialty Start Date End Date Guero Davis MD [address] [place], [place] [address] [place] [address] PCP - General 02/22/17 03/27/17 Guero Davis MD [address] [place], [place] [address] [place] [address] PCP - General 02/12/17 02/21/17 Guero Davis MD [address] [place], [place] [address] [place] [address] PCP - General 02/04/17 02/11/17 Guero Davis MD [address] [place] [address] [address] [place] [address] PCP - General 05/14/16 02/03/17 Jaswant Kirby MD [address] [facility] [address] [place] [address] PCP - General 03/28/17 04/01/17 Guero Davis MD [address] [place] [address] [address] [place] [address] PCP - General 04/02/17 04/22/17 Jaswant Kirby MD [address] [place] [address] PCP - General 04/23/17 04/23/17 Jaswant Kirby MD [address] [place] [address] PCP - General 04/24/17 04/29/17 Guero Davis MD [address] [place], [place] [address] [place] [address] PCP - General Internal Medicine 04/30/17 11/12/18 Emely Cruz MD [address] [place] [address] PCP - General Internal Medicine 11/13/18 07/28/21 Emely Cruz MD [address] [facility] [address] [place] [address] PCP - General 08/25/21 08/30/21 Jason Strickland MD [address] [place] [address] PCP - General 08/31/21 Guero Hernandez MD [address] [facility] [address] [place] [address] Consulting Physician Gastroenterology 04/14/19 documented as of this encounter
--- OUTSIDE RECORDS SUMMARY | 2025-02-10 10:55 | XMS_ITS | Encounter Summary ---
Author Organization [facility] Address [address] [place] [address] Care Team Providers Care Nursery Nurse Name Role Phone Jaswant Kirby MD Primary Care Provider Unavail able Encounter Details Date Type Department Care Team (Latest Contact Info) Description 11/15/2006 Outpatient Historical [facility] Ana Ferguson MD Impaired Fasting Glucose (Primary Dx) Social History Tobacco Use Types Packs/Day Years Used Date Smoking Tobacco: Never Assessed Comments Unknown Sex and Gender Information Value Date Recorded Sex Assigned at Not on file Legal Sex Female 2:40 AM AIR SAMPLER Gender Identity Not on file Sexual Orientation Not on file documented as of this encounter Plan of Treatment Not on file documented as of this encounter Visit Diagnoses Diagnosis Impaired fasting glucose- Primary documented in this encounter Care Teams Nursery Nurse Relationship Specialty Start Date End Date Jaswant Kirby MD PCP - General Family Practice 08/27/16 documented as of this encounter
--- OUTSIDE RECORDS SUMMARY | 2025-02-10 10:55 | XMS_ITS | Encounter Summary ---
Author Organization [facility] Address [address] [place] [address] Care Team Providers Care Advertising Intern Name Role Phone Jaswant Kirby MD Primary Care Provider Unavail able Encounter Details Date Type Department Care Team (Late st Contact Info) Description 01/24/2007 Orders Only [facility] Family Medicine [facility] [address] [facility] [address] [place] [address] [place] [address] [address] [facility] [place] [address] Social History Tobacco Use Types Packs/Day Years Used Date Smoking Tobacco: Never Assessed Comments Unknown Sex and Gender Information Value Date Recorded Sex Assigned at Not on file Legal Sex Female 2:40 AM TIPPLE GREASER Gender Identity Not on file Sexual Orientation Not on file documented as of this encounter Plan of Treatment Not on file documented as of this encounter Visit Diagnoses Not on filedocumented in this encounter Care Teams Advertising Intern Relationship Specialty Start Date End Date Jaswant Kirby MD PCP - General Family Practice 08/27/16 documented as of this encounter
--- OUTSIDE RECORDS SUMMARY | 2025-02-10 10:55 | XMS_ITS | Encounter Summary ---
Author Organization [facility] Address [address] [place] [address] Phone Care Team Providers Care Bench Precision Assembler Name Role Phone Guero Davis MD Primary Care Provider [phone] Emely Cruz MD Primary Care Provider Guero Hernandez MD Unavailable [phone] Emely Cruz MD Primary Care Provider Jason Strickland MD Primary Care Provider [phone] Encounter Details Date Type Department Care Team (Latest Contact Info) Description 05/16/2017 Orders Only [facility] Scanning, Provider Social History Tobacco Use Types Packs/Day Years Used Date Smoking Tobacco: Never Alcohol Use Standard Drinks/Week Comments No 0 (1 standard drink = 0.6 oz pur e alcohol) Comments Unknown Sex and Gender Information Value Date Recorded Sex Assigned at Not on file Legal Sex Female 12:57 AM CORING MACHINE OPERATOR Gender Identity Female 05/17/2022 2:15 PM CDT Sexual Orientation Straight 05/17/2022 2: 15 PM CDT documented as of this encounter Plan of Treatment Not on file documented as of this encounter Procedures Procedure Name Priority Date/Time Associated Diagnosis Comments SCAN - LABS 05/16/2017 documented in this encounter Results * SCAN - LABS (05/16/2017) us Provider Scanning Final Result documented in this encounter Visit Diagnoses Not on filedocumented in this encounter Additional Health Concerns Infection Onset Date Last Indicated Resolved Time COVID: Suspected 12/12/2020 12/12/2020 12/26/2020 3:06 AM CORING MACHINE OPERATOR documented as of this encounter Care Teams Bench Precision Assembler Relationship Specialty Start Date End Date Guero Davis MD [address] [place] [address] [address] [place] [address] PCP - General Internal Medicine 04/30/17 11/12/18 Emely Cruz MD [address] [place] [address] [address] [place] [address] PCP - General Internal Medicine 11/13/18 07/28/21 Emely Cruz MD [address] [place] [address] [address] [place] [address] PCP - General 08/25/21 08/30/21 Jason Strickland MD [address] [place] [address] [address] [place] [address] PCP - General 08/31/21 Guero Hernandez MD [address] [place], [place] [address] [place] [address] Consulting Physician Gastroenterology 04/14/19 documented as of this encounter
--- OUTSIDE RECORDS SUMMARY | 2025-02-10 10:55 | XMS_ITS | Encounter Summary ---
Author Organization [facility] Address [address] [place] [address] Care Team Providers Care Low Emission Automobile Designer Name Role Phone Jaswant Kirby MD Primary Care Provider Unavail able Encounter Details Date Type Department Care Team (Late st Contact Info) Description 05/16/2006 Outpatient Historical [facility] Family Medicine [facility] [address] [place] [address] [place] [address] [address] [place] [address] Social History Tobacco Use Types Packs/Day Years Used Date Smoking Tobacco: Never Assessed Comments Unknown Sex and Gender Information Value Date Recorded Sex Assigned at Not on file Legal Sex Female 2:40 AM TELEPHONE CLAIMS REPRESENTATIVE Gender Identity Not on file Sexual Orientation Not on file documented as of this encounter Last Filed Vital Signs Vital Sign Reading Time Taken Comments Blood Pressure 110/68 05/16/2006 8:45 AM CDT Pulse 70 05/16/2006 8:45 AM CDT Temperature - - Respiratory Rate - - Oxygen Saturation - - Inhaled Oxygen Concentration - - Weight 88 kg (194 lb) 05/16/2006 8:45 AM CDT Height - - Body Mass Index - - documented in this encounter Plan of Treatment Not on file documented as of this encounter Visit Diagnoses Not on filedocumented in this encounter Care Teams Low Emission Automobile Designer Relationship Specialty Start Date End Date Jaswant Kirby MD PCP - General Family Practice 08/27/16 documented as of this encounter
--- OUTSIDE RECORDS SUMMARY | 2025-02-10 10:55 | XMS_ITS | Encounter Summary ---
Author Organization [facility] Address [address] [place] [address] Care Team Providers Care Top Loader Name Role Phone Jaswant Kirby MD Primary Care Provider Unavail able Encounter Details Date Type Department Care Team (Latest Contact Info) Description 11/22/2004 Outpatient Historical HIS [facility] [address] [facility] [place] [address] SCREENING MAMM-MAILG NEOPL-OTHER (Primary Dx) Social History Tobacco Use Types Packs/Day Years Used Date Smoking Tobacco: Never Assessed Comments Unknown Sex and Gender Information Value Date Recorded Sex Assigned at Not on file Legal Sex Female 2:40 AM LADLE OPERATOR Gender Identity Not on file Sexual Orientation Not on file documented as of this encounter Plan of Treatment Not on file documented as of this encounter Visit Diagnoses Diagnosis Other screening mammogram- Primary documented in this encounter Care Teams Top Loader Relationship Specialty Start Date End Date Jaswant Kirby MD PCP - General Family Practice 08/27/16 documented as of this encounter
--- OUTSIDE RECORDS SUMMARY | 2025-02-10 10:55 | XMS_ITS | Encounter Summary ---
Author Organization [facility] Address [address] [place] [address] Care Team Providers Care Studio Model Name Role Phone Jaswant Kirby MD Primary Care Provider Unavail able Encounter Details Date Type Department Care Team (Late st Contact Info) Description 07/15/2006 Outpatient Historical [facility] Family Medicine [facility] [address] [facility] [address] [place] [address] [place] [address] [place] [address] Social History Tobacco Use Types Packs/Day Years Used Date Smoking Tobacco: Never Assessed Comments Unknown Sex and Gender Information Value Date Recorded Sex Assigned at Not on file Legal Sex Female 2:40 AM EMPLOYEE RELATIONS ADVISOR Gender Identity Not on file Sexual Orientation Not on file documented as of this encounter Last Filed Vital Signs Vital Sign Reading Time Taken Comments Blood Pressure 130/76 07/15/2006 8:40 AM CDT Pulse 60 07/15/2006 8:40 AM CDT Temperature - - Respiratory Rate - - Oxygen Saturation - - Inhaled Oxygen Concentration - - Weight 90.3 kg (199 lb) 07/15/2006 8:40 AM CDT Height - - Body Mass Index 36.4 06/13/2006 9:45 AM CDT documented in this encounter Plan of Treatment Not on file documented as of this encounter Visit Diagnoses Not on filedocumented in this encounter Care Teams Studio Model Relationship Specialty Start Date End Date Jaswant Kirby MD PCP - General Family Practice 08/27/16 documented as of this encounter
--- OUTSIDE RECORDS SUMMARY | 2025-02-10 10:55 | XMS_ITS | Encounter Summary ---
Author Organization [facility] Address [address] [place] [address] Care Team Providers Care Rotary Helper Name Role Phone Jaswatn Kirby MD Primary Care Provider Unavail able Encounter Details Date Type Department Care Team (Latest Contact Info) Description 05/02/2006 Outpatient Historical [facility], [address] Terrell Morrissey MD [address] [facility] [address] [place] [address] Cellulitis and Abscess of Leg, except Foot (Primary Dx) Social History Tobacco Use Types Packs/Day Years Used Date Smoking Tobacco: Never Assessed Comments Unknown Sex and Gender Information Value Date Recorded Sex Assigned at Not on file Legal Sex Female 2:40 AM LOCKER ROOM MANAGER Gender Identity Not on file Sexual Orientation Not on file documented as of this encounter Plan of Treatment Not on file documented as of this encounter Procedures Procedure Name Priority Date/Time Associated Diagnosis Comments C-REACTIVE PROTEIN Routine 05/02/2006 2: 51 PM CDT documented in this encounter Results * C-REACTIVE PROTEIN (05/02/2006 2:51 PM CDT) CRP 0.7 0.0 - 0.8 mg/dL INTERFACE SYSTEM 05/02/2006 2:51 PM CDT us Terrell Morrissey MD CHEMISTRY ORDERABLES Final Resu lt INTERFACE SYSTEM Refer to clinic/hospital department documented in this encounter Visit Diagnoses Diagnosis Cellulitis and abscess of leg, except foot- Primary documented in this encounter Care Teams Rotary Helper Relationship Specialty Start Date End Date Jaswant Kirby MD PCP - General Family Practice 08/27/16 documented as of this encounter
--- OUTSIDE RECORDS SUMMARY | 2025-02-10 10:55 | XMS_ITS | Encounter Summary ---
Author Organization [facility] Address [address] [facility] Attn: Epic Prelude ADT [place] [address] Care Team Providers Care Licensing Coordinator Name Role Phone Jaswant Kirby MD Primary Care Provider Unavail able Encounter Details Date Type Department Care Team (Latest Contact Info) Description 03/01/2006 Orders Only Ana Ferguson MD Social History Tobacco Use Types Packs/Day Years Used Date Smoking Tobacco: Never Assessed Comments Unknown Sex and Gender Information Value Date Recorded Sex Assigned at Not on file Legal Sex Female 2:40 AM TELEPHONE TRIAGE NURSE Gender Identity Not on file Sexual Orientation Not on file documented as of this encounter Progress Notes * Interface, Nathan Stl Conv Transcriptions - 09/03/2008 12:30 AM CDT NURSE NAME: Darek Garduno BLOOD PRESSURE: 122/66. Right Arm Sitting PULSE: 68. Right Radial, Regular WEIGHT: 195lbs. ALLERGIES: Allergies are as listed. CHIEF COMPLAINT Here for follow up evaluation. [facility] HISTORY: HISTORY: 272.0-PURE HYPERCHOLESTEROLEMIA The patient has gained weight. The patient is somewhat compliant with the low saturated fat diet. The patient`s exercise has decreased. The patient is tolerating the medications. The patient`s most recent labs reviewed. 300.00-ANXIETY The condition has improved. The patient denies excessive crying, a persistent feeling of sadness and hopelessness, and fatigue. No complications noted from the medication presently being used. 346.90-MIGRAINE HEADACHE The patient relates that the migraine headaches are stable. The patient denies any recent change in pattern or progression. No focal neurological deficits have been noted. 401.1-HYPERTENSION ESSENTIAL BENIGN The patient has gained weight. The patient is somewhat compliant with diet. The patient`s exercise has decreased. The patient denies chest pain, shortness of breath, dyspnea on exertion, pedal edema, or headache. No complications noted from the medication presently being used. 627.9-MENOPAUSAL AND POSTMENOPAUSAL DISORDERS occasional hot flashes, fleeting. No dyspareunia. 715.90-OSTEOARTHROSIS UNSPECIFIED The arthritis has improved. The patient has moderate joint pain. No complications noted from the medication presently being used. The patient is being seen by an orthopedic surgeon. 723.1-NECK PAIN The neck pain has improved. The patient has had a recent flare, notes stiffness, notes pain radiation. The patient is being seen by an orthopedic surgeon. No complications noted from the medication presently being used. ROS: GENERAL: Normal activity and energy level, no change in appetite. No major weight gain or loss. Nomalaise, chills, fever, diaphoresis. ALLERGIC/IMMUNOLOGIC: HAS ALLERGIC RHINITIS. ENDOCRINE: No heat or cold intolerance, no excessive thirst. CARDIAC: No chest pain, palpitations, orthopnea, dyspnea on exertion, or paroxysmal nocturnal dyspnea. RESPIRATORY: No dyspnea, cough, hemoptysis or wheezing. : See HISTORY OF PRESENT ILLNESS. NEUROLOGIC: No weakness, dizziness, loss of consciousness, transient ischemic symptoms, or seizures. MUSCULOSKELETAL: See HISTORY OF PRESENT ILLNESS. PSYCHIATRIC: See HISTORY OF PRESENT ILLNESS. Patient's history reviewed; no changes. SOCIAL HISTORY: TOBACCO USE: Has no significant smoking history. PHYSICAL EXAMINATION: CONSTITUTIONAL: GENERAL APPEARANCE: Healthy appearing patient in no distress. RESPIRATORY: Clear to auscultation and percussion. Normal respiratory effort. CARDIOVASCULAR: CARDIAC: Regular rhythm. No murmurs, rubs, or gallops. ARTERIAL: Aortic pulses of normal amplitude with no bruits. JUGULAR VEINS: Jugular veins within normal limits. EDEMA/VARICOSITIES OF EXTREMITIES: No edema or varicosities. SKIN: SKIN: Warm, dry, no diaphoresis, no significant lesions, irritation, rashes or ulcers. No induration, obvious subcutaneous nodules or tightening. ASSESSMENT/PLAN: 272.0-PURE HYPERCHOLESTEROLEMIA LAB ORDERS: Order number: [id number] Test Ordered: LIPID PANEL 1078 Order number: [id number] Test Ordered: GLUCOSE LEVEL, FASTING 1098 300.00-ANXIETY STATUS: Improved. MEDICATIONS: LEXAPRO ORAL TABLET 20 MG, 1 Every Day, 90 Dispensed, 4 Fills, status: CONTINUED, 03/01/2006. 346.90-MIGRAINE HEADACHE MEDICATIONS: FIORICET ORAL TABLET 50-325-40 MG, 1-2 PRN HEADACHE Q 4 HOURS; MAX 6/24 HRS, 180 Dispensed, 3 Fills, status: CONTINUED, 03/01/2006. 401.1-HYPERTENSION ESSENTIAL BENIGN MEDICATIONS: METOPROLOL TARTRATE ORAL TABLET 25 MG, QD, 90 Dispensed, 3 Fills, status: CONTINUED, 03/01/2006. LIPITOR ORAL TABLET 40 MG, QD, 90 Dispensed, 1 Fills, status: NEW PRESCRIPTION, 12/14/2005. ASPIRIN ORAL TABLET ENTERIC COATED 81 MG, 1 Every Morning, status: NEW HISTORY, 07/01/2004. LAB ORDERS: Order number: [id number] Test Ordered: BASIC METABOLIC PANEL 1607 627.9-MENOPAUSAL AND POSTMENOPAUSAL DISORDERS stable 715.90-OSTEOARTHROSIS UNSPECIFIED Continue current regimen. MEDICATIONS: FLEXERIL ORAL TABLET 10 MG, 1 Three Times A Day, As Needed, 90 Dispensed, 3 Fills, status: CONTINUED, 03/01/2006. 723.1-NECK PAIN continue therapy per Dr. Pugh. Off corticosteroids. Receiving marcaine injections to trigger points prn. RETURN VISIT: Patient instructed to return in 4 months. 03/01/06 04:54 p Electronically signed by Ana Ferguson MD. TEACHING PHYSICIAN COMMENTS: I have reviewed the resident's note and I agree with the resident's evaluation and plan. smp Electronically Signed by: Helga Light MD on February documented in this encounter Plan of Treatment Not on file documented as of this encounter Visit Diagnoses Not on filedocumented in this encounter Care Teams Licensing Coordinator Relationship Specialty Start Date End Date Jaswant Kirby MD PCP - General Family Practice 08/27/16 documented as of this encounter
--- OUTSIDE RECORDS SUMMARY | 2025-02-10 10:55 | XMS_ITS | Encounter Summary ---
Author Organization [facility] Address [address] [place] [address] Care Team Providers Care Curb Builder Name Role Phone Jaswant Kirby MD Primary Care Provider Unavail able Encounter Details Date Type Department Care Team (Late st Contact Info) Description 10/24/2006 Orders Only [facility] Family Medicine [facility] [address] [facility] [address] [place] [address] [place] [address] 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
--- OUTSIDE RECORDS SUMMARY | 2025-02-10 10:55 | XMS_ITS | Encounter Summary ---
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 PCP: rubina. ALTERNATIVE PHONE NUMBER: [phone] WHO CALLED: Patient called. PHARMACY NUMBER: fax [phone] SECTION 1: REQUESTED ACTION bryanna 01/13/07 at 02:41 pm: 90 day supply MEDICATION REQUEST: Patient requests a refill. lexapro, nexium, metoprolol DOCTOR`S RESPONSE: kristine 01/13/07 at 03:13 pm MEDICATIONS: Call in to Pharmacy NEXIUM ORAL CAPSULE DELAYED RELEASE 40 MG TABLETS, 1 Every Day, 90 Dispensed, 90 Duration/Days Supply, status: CONTINUED, 01/13/2007. LEXAPRO ORAL TABLET 20 MG, 1 Every Day, 90 Dispensed, 4 Fills, status: CONTINUED, 01/13/2007. METOPROLOL TARTRATE ORAL TABLET 25 MG, QD, 90 Dispensed, 3 Fills, status: CONTINUED, 01/13/2007. FINAL ACTION: fahad 01/13/07 at 03:47 pm Spoke with patient 01/13/07 at 03:51 pm. ADDITIONAL COMMENTS: faxed to pharmacy..josue Electronically Signed by: Josue Franz on Saturday, January 13, 2007 documented in this encounter Plan of Treatment Not on file documented as of this encounter Visit Diagnoses Not on filedocumented in this encounter Care Teams Hoist Operator Relationship Specialty Start Date End Date Jaswant Kirby MD PCP - General Family Practice 08/27/16 documented as of this encounter
--- OUTSIDE RECORDS SUMMARY | 2025-02-10 10:55 | XMS_ITS | Encounter Summary ---
Author Organization [facility] Address [address] [place] [address] Care Team Providers Care Circulation Sales Representative Name Role Phone Jaswant Kirby MD Primary Care Provider Unavail able Encounter Details Date Type Department Care Team (Late st Contact Info) Description 10/31/2005 Outpatient Historical [facility] Family Medicine [facility] [address] [facility] [address] [place] [address] Evette Yap MD NO ADDRESS ON FILE Social History Tobacco Use Types Packs/Day Years Used Date Smoking Tobacco: Never Assessed Comments Unknown Sex and Gender Information Value Date Recorded Sex Assigned at Not on file Legal 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
--- OUTSIDE RECORDS SUMMARY | 2025-02-10 10:56 | XMS_ITS | Encounter Summary ---
Author Organization [employer] [facility] Address [address] [place] [address] Care Team Providers Care Clean Energy Policy Analyst Name Role Phone Jaswant Kirby MD Primary Care Provider Unavail able Encounter Details Date Type Department Care Team (Late st Contact Info) Description 07/23/2017 Lab Requisition [facility] [email or web address] [facility] [address] [place] [address] Atul Haney MD [address] [place] [address] Anemia Social History Tobacco Use Types Packs/Day Years Used Date Smoking Tobacco: Never Assessed Comments Unknown Sex and Gender Information Value Date Recorded Sex Assigned at Not on file 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 SERVICES - [facility] TIBC 312 250 - 450 ug/dL 07/23/2017 2:26 PM CDT [facility]ORY [facility] - [facility] IRON % SATURATION 11(L) 15 - 50 % 07/23/2017 2:26 PM CDT [facility] - [facility] TRANSFERRIN 246 200 - 360 mg/dL 07/23/2017 2:26 PM CDT [facility] - [facility] Blood Venipuncture / Unknown 07/23/2017 6:30 AM CDT 07/23/2017 12:10 PM CDT Atul Hnaey MD CHEMISTRY ORDERABLES Final R esult [facility] CLIA# [id number] [address] [facility] [place] [address] * FERRITIN (07/23/2017 6:30 AM CDT) Pathologist [facility] FERRITIN 115.5 13.0 - 150.0 ng/mL 07/23/2017 2:31 PM CDT [facility]ORY [facility] Blood Venipuncture / Unknown 07/23/2017 6:30 AM CDT 07/23/2017 12:10 PM CDT Atul Haney MD CHEMISTRY ORDERABLES Final R esult Performing Organization Address City/[facility]/ZIP Co de Phone Number [facility] CLIA# [id number] [address] [place] [address] * (ABNORMAL) CBC WITH DIFFERENTIAL (07/23/2017 6:30 AM CDT) WBC 12.0(H) 4.0 - 9.8 K/uL 07/23/2017 12:45 PM [address] [facility] RBC 2.89(L) 3.90 - 4.90 M/uL 07/23/2017 12:45 [address] [facility] HEMOGLOBIN 7.9(L) 11.8 - 14.8 g/dL 07/23/2017 12:45 PM CDT [employer] LABORATORY SERVICES - [facility] HEMATOCRIT 26.7(L) 35.5 - 44.0 % 07/23/2017 12:45 PM CDT [employer] LABORATORY SERVICES - . [facility] MCV 92.4 82.0 - 99.0 fL 07/23/2017 12:45 PM T [employer] LABORATORY SERVICES - [facility] MCH 27.3 27.2 - 32.6 pg 07/23/2017 12:45 PM CDT [employer] [facility]ORATORY SERVICES - [facility] MCHC 29.6(L) 31.5 - 35.5 g/dL 07/23/2017 12:45 PM CDT [employer] LABORATORY SERVICES - [facility] RDW 15.3(H) 11.5 - 14.5 % 07/23/2017 12:45 PM [employer] LABORATORY SERVICES - [facility] RDW-STDEV 50.4(H) 37.1 - 48.7 fL 07/23/2017 12:45 PM T [employer] [facility]ORATORY SERVICES - [facility] PLATELETS 771(H) 140 - 350 K/uL 07/23/2017 12:45 PM [employer] LABORATORY SERVICES - [facility] MPV 8.8(L) 9.3 - 12.4 fL 07/23/2017 12:45 PM T [employer] LABORATORY SERVICES - . [facility] NEUTROPHILS 67 % 07/23/2017 12:45 PM [facility] [employer] LABORATORY SERVICES - . [facility] LYMPHOCYTES 21 % 07/23/2017 12:45 PM [employer] LABORATORY SERVICES - . [facility] MONOCYTES 8 % 07/23/2017 12:45 PM CDT [employer] [facility]ATORY SERVICES - . [facility] EOSINOPHILS 2 % 07/23/2017 12:45 PM CDT [employer] [facility]ATORY SERVICES - . [facility] BASOPHILS 1 % 07/23/2017 12:45 PM CDT [employer] LABORATORY SERVICES - . [facility] IMMATURE GRANULOCYTES 1 % 07/23/2017 12:45 PM [employer] LABORATORY SERVICES - . [facility] Comment:IG (Immature Granulo cyte) count includes Metamyelocytes, Myelocytes, and Promyelocytes NEUTROPHIL ABSOLUTE 8.09(H) 1.90 - 7.00 K/uL 07/23/2017 12:45 PM CDT [employer] LABORATORY SERVICES - . [facility] LYMPHOCYTE ABSOLUTE 2.51 0.70 - 4.50 K/uL 07/23/2017 12:45 PM CDT [facility] - . [facility] MONOCYTE ABSOLUTE 0.96 0.10 - 1.30 K/uL 07/23/2017 12:45 PM CDT [facility] - . [facility] EOSINOPHIL ABSOLUTE 0.26 0.00 - 0.70 K/uL 07/23/2017 12:45 PM CD[address] [facility] LABORATORY SERVICES - . [facility] BASOPHILS ABSOLUTE 0.09 0.00 - 0.20 K/uL 07/23/2017 12:45 PM [address] [facility] LABORATORY SERVICES - . [facility] IMMATURE GRANULOCYTES ABSOLUTE 0.07(H) 0.00 - 0.03 K/uL 07/23/2017 12:45 PM CD[address] [facility]ATORY SERVICES - [facility] Blood Venipuncture / Unknown 07/23/2017 6:30 AM CDT 07/23/2017 12:00 PM CDT Atul Haney MD HEMATOLOGY ORDERABLES Final Result [facility]ATORY SERVICES [facility]# [id number] [address] [facility] [place] [address] documented in this encounter Visit Diagnoses Diagnosis Anemia Anemia, unspecified documented in this encounter Care Teams Clean Energy Policy Analyst Relationship Specialty Start Date End Date Jaswant Kirby MD PCP - General Family Practice 08/27/16 documented as of this encounter
--- OUTSIDE RECORDS SUMMARY | 2025-02-10 10:56 | XMS_ITS | Encounter Summary ---
Author Organization [facility] Address [address] [place] [address] Care Team Providers Care Professor Of Food Biochemistry Name Role Phone Jaswant Kirby MD Primary Care Provider Unavail able Encounter Details Date Type Department Care Team (Late st Contact Info) Description 07/31/2017 Lab Requisition [facility] Laboratory Services [address] [facility] [address] [facility] [address] [place] [address] Atul Haney MD [address] [place] [address] Hyperlipidemia Social History Tobacco Use Types Packs/Day Years Used Date Smoking Tobacco: Never Alcohol Use Standard Drinks/Week Comments No 0 (1 standard drink = 0.6 oz pur e alcohol) Comments Unknown Sex and Gender Information Value Date Recorded Sex Assigned at Not on file 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
--- OUTSIDE RECORDS SUMMARY | 2025-02-10 10:56 | XMS_ITS | Encounter Summary ---
Author Organization [facility] Address [address] [place] [address] Care Team Providers Care Service Superintendent Name Role Phone Jaswant Kirby MD Primary Care Provider Unavail able Encounter Details Date Type Department Care Team (Late st Contact Info) Description 07/31/2017 Lab Requisition [facility] Laboratory Services [address] [facility] [address] [place] [address] Atul Haney MD [address] [place] [address] Anemia Social History Tobacco Use Types Packs/Day Years Used Date Smoking Tobacco: Never Alcohol Use Standard Drinks/Week Comments No 0 (1 standard drink = 0.6 oz pur e alcohol) Comments Unknown Sex and Gender Information Value Date Recorded Sex Assigned at Not on file 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
--- OUTSIDE RECORDS SUMMARY | 2025-02-10 10:56 | XMS_ITS | Encounter Summary ---
Author Organization [facility] Address [address] [place] [address] Care Team Providers Care Gridcap Machine Operator Name Role Phone Jaswant Kirby MD Primary Care Provider Unavail able Encounter Details Date Type Department Care Team (Latest Contact Info) Description 09/01/2003 Outpatient Historical [facility] [place] [address] [address] 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
--- OUTSIDE RECORDS SUMMARY | 2025-02-10 10:56 | XMS_ITS | Encounter Summary ---
Author Organization [facility] Address [address] [place] [address] Phone Care Team Providers Care Bead Machine Operator Name Role Phone Guero Davis MD Primary Care Provider [phone] Emely Cruz MD Primary Care Provider Guero Hernandez MD Unavailable Emely Cruz MD Primary Care Provider Jason Strickland MD Primary Care Provider [phone] Encounter Details Date Type Department Care Team (Late st Contact Info) Description 04/22/[address] [facility] ProviderGini MD [address] [place] [id number] Social History Tobacco Use Types Packs/Day Years Used Date Smoking Tobacco: Never Smokeless Tobacco: Never Alcohol Use Standard Drinks/Week Comments No 0 (1 standard drink = 0.6 oz pur e alcohol) Comments No Sex and Gender Information Value Date Recorded Sex Assigned at Not on file Legal Sex Female 12:57 AM CULLED FRUIT PACKER Gender Identity Female 05/17/2022 2:15 PM CDT Sexual Orientation Straight 05/17/2022 2: 15 PM CDT documented as of this encounter Plan of Treatment Not on file documented as of this encounter Procedures Procedure Name Priority Date/Time Associated Diagnosis Comments DISCHARGE LABORATORY CUMULATIVE REPORT 04/22/2018 12:00 AM CDT documented in this encounter Results * DISCHARGE LABORATORY CUMULATIVE REPORT (04/22/2018 12:00 AM CDT) Narrative 04/22/2018 12:00 AM CDT Ordered by an unspecified provider. us Historical Provider LAB BLOOD ORDERABLES Luisa l Result documented in this encounter Visit Diagnoses Not on filedocumented in this encounter Additional Health Concerns Infection Onset Date Last Indicated Resolved Time COVID: Suspected 12/12/2020 12/12/2020 12/26/2020 3:06 AM CULLED FRUIT PACKER documented as of this encounter Care Teams Bead Machine Operator Relationship Specialty Start Date End Date Guero Davis MD [address] [place], [place] [address] [place] [address] PCP - General Internal Medicine 04/30/17 11/12/18 Emely Cruz MD [address] [place] [address] [address] [place] [address] PCP - General Internal Medicine 11/13/18 07/28/21 Emely Cruz MD [address] [place] [address] [address] [place] [address] PCP - General 08/25/21 08/30/21 Jason Strickland MD [address] [place] [address] [address] [place] [address] PCP - General 08/31/21 Guero Hernandez MD [address] [place] [address] [address] [place] [address] Consulting Physician Gastroenterology 04/14/19 documented as of this encounter
--- OUTSIDE RECORDS SUMMARY | 2025-02-10 10:56 | XMS_ITS | Encounter Summary ---
Author Organization [facility] Address [address] [place] [address] Care Team Providers Care Blocker And Polisher Gold Wheel Name Role Phone Jaswant Kirby MD Primary Care Provider Unavail able Encounter Details Date Type Department Care Team (Late st Contact Info) Description 08/26/2003 Outpatient Historical [facility] Family Medicine [facility] [address] [facility] [address] [place] [address] [place] [address] [address] 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
--- OUTSIDE RECORDS SUMMARY | 2025-02-10 10:56 | XMS_ITS | Encounter Summary ---
Author Organization [facility] Address [address] [place] [address] Care Team Providers Care Commercial Sewing Instructor Name Role Phone Jaswant Kirby MD Primary Care Provider Unavail able Encounter Details Date Type Department Care Team (Latest Contact Info) Description 11/04/2003 Outpatient Historical [facility] [place] [address] 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
--- OUTSIDE RECORDS SUMMARY | 2025-02-10 10:56 | XMS_ITS | Referral Summary ---
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 to contact us. She reports her anxiety has done fine since she backed off the Wellbutrin. She did not notice any improvement or worsening of any symptoms. She may try the Wellbutrin every other day if it is feeding and or appetite suppression. Assessment & Plan (12/04/2018 9:35 AM STAVE SAW OPERATOR): She did note this with the Wellbutrin were going to decrease the Wellbutrin to 150 mg for 2 weeks and we may stop it. We may need to look at a replacement for her depression. We are also going to treat the urine culture. Min have her come back in 4 weeks and were going to watch the weight. She is going to get the rest of the labs done that she had done yet. We reviewed symptoms to watch for. If symptoms worsen or persist will evaluate this further. Other fatigue 09/26/2018 06/15/2019 Assessment & Plan (09/26/2018 11:18 AM CDT): F/u labs. Encouraged healthy diet, regular sleep. Pseudophakia of left eye 08/14/2018 Assessment & Plan (08/14/2018 1:29 PM CDT): Felecia Mendoza is a POW1 EXTRACTION CATARACT - PHACOEMULSIFICATION AND LENS IMPLANT - Left with intraocular pressure (IOP) Intraocular pressure was 13 in the right eye and 11 in the left eye using Applanation.. Postoperative instructions were given. Patient should taper Prednisolone Acetate 1% as follows: - TID for 5 days - BID for 5 days - QD for 5 days - then stop Continue latanoprost OS QHS until 08/29/18. Patient can stop wearing the shield at bedtime. Signs, symptoms of retinal detachment, tear, hole, and endophthalmitis (RSVP) were reviewed and the patient is to call immediately for increasing pain and decreasing vision. Activity Restrictions were discussed. Should there be any worsening of pain, vision, or redness the patient is to call immediately. RTC: 6 weeks tech only IOP check Diverticulosis of large inte alana without perforation or abscess without bleeding 07/17/2018 06/15/2019 Assessment & Plan (07/17/2018 3:21 PM CDT): Recently 2 weks of intense bilat LQ abd pain and cramping with loose non bloody stools. Restricted intake but maintained hi fiber diet. Has had hx of severe tic disease. Suggested repeat colonoscopy for reeval of colon. No fever or BRBPR through thius period and it resolved and she is back to normal. Combined form of senile cataract of left eye 8 08/14/2018 Nuclear sclerotic cataract of left eye 05/06/2018 08/14/2018 Overview (05/06/2018): Added automatically from request for surgery [id number] Assessment & Plan (07/09/2018 1:58 PM CDT): Significant and symptomatic combined cataract left : Discussed observation vs cataract removal and intraocular lens (IOL) implantation. Discussed risks of surgery all the way from endophthalmitis to loss of vision and loss of eye. Also discussed about intraocular lens (IOL) options: mono vs multifocal (discussed photopsia, need to for intraocular lens (IOL) exchange in ). Pt agreed with cataract extraction (CE)/unifocal intraocular lens (IOL) . Also gave her AAO info about cataract surgery. She will call us to schedule. Will get Pre op medical clearance and use preop drops (gtts). Skin lesion 02/27/2018 06/15/2019 Assessment & Plan (02/27/2018 3:37 PM CDT): Patient's skin lesion looks benign. I told her for changed at all the let us know we would send her to sugar controller. Bronchitis 01/07/2018 06/15/2019 Diverticulitis of large inte alana without bleeding 12/17/2017 06/15/2019 Diarrhea 11/04/2017 06/15/2019 Assessment & Plan (12/04/2017 1:36 PM STAVE SAW OPERATOR): Start with incontinence. Colonoscopy soon if repeat CT scan does not show active diverticulitis Assessment & Plan (11/04/2017 8:27 PM STAVE SAW OPERATOR): Patient id patient has sludge and not sure what is causing it. We will check a C diff we will also check O and P stool culture will refer her to GI Diverticulitis of large inte alana with perforation without bleeding 11/04/2017 06/15/2019 Assessment & Plan (10/24/2018 4:07 PM STAVE SAW OPERATOR): dooing well with regular bms and no pain on bran and one piece fruit in the morning, Single episode of cramping responded to levsin SL. Worried about loss of muscle mass so advised regular exercise, continue diet and prn levsin and return prn. Assessment & Plan (01/17/2018 2:22 PM STAVE SAW OPERATOR): Doing well with hi fiber diet and D went awy after first week and frequency of bms has dropped to present 2-3/day. No evidence recurrent ticitis. Discussed emergent and elective surgery depending on how disease progresses. Generally pleased to be feeling better. Advised stayin on the hi fiber diet forever and return prn. Assessment & Plan (12/04/2017 1:42 PM STAVE SAW OPERATOR): Diagnosed a month ago, better after first round of abx but with diarrhea again, currently taking second round of abx, C diff negative. Mild pain in llq, no rebound, no fever but she still feels sick and is worried about incontinence. Will repeat another CT scan a/p and refer surgery in case of any possible complicated diverticulitis. If CT unremarkable then we will planning to do a colonoscopy in 3-4 weeks Assessment & Plan (11/04/2017 8:28 PM STAVE SAW OPERATOR): Clinically the patient has improved. The CT scan showed a perforation. On her abdominal exam is unremarkable. We are going to check some labs in observe this for now and referred GI Lower abdominal pain 10/23/2017 019 Assessment & Plan (09/25/2018 2:40 PM CDT): 2 weeks of severe bilat LQ pain and cramping without fever, N, V, Blood in stool. Yesterday perfect day with normal bm and no pain. Colon 08/19. . Looks severely depressed. Will try elavil 10 HS and recap in 3 weeks Assessment & Plan (10/23/2017 6:14 PM STAVE SAW OPERATOR): Patient has a history of diverticulosis. She has left lower quadrant abdominal pain. It is tender to exam done there. Her history and exam is consistent with diverticulitis. I have started her on Cipro and metronidazole. Cipro was given because she is allergic to sulfa and amoxicillin. We discussed tendon problems the I have also ordered a CT scan of her abdomen Diverticulosis of colon 10/23/201705/26 Assessment & Plan (12/17/2017 2:31 PM STAVE SAW OPERATOR): Diarrhea. CT [facility] soft calkl of single tic which may have been inflamed. No acute ticitis on recent CT [facility]. Never bleed in stool or fever. Colonoscopy [facility] 2 yrs ago. Also has ibs and has tried to maintain a zero fiber diet. Assessment & Plan (11/04/2017 8:26 PM STAVE SAW OPERATOR): Patient is diverticulitis with a rupture and perforation. She is getting better. Her examination is unremarkable. We will observe this for now and check some labs. Assessment & Plan (10/23/2017 6:15 PM STAVE SAW OPERATOR): Patient is a history of diverticulosis and will be treated for diverticulitis. Leukocytosis 05/16/2017 06/15/2019 Assessment & Plan (11/04/2017 8:26 PM STAVE SAW OPERATOR): Patient has leukocytosis that she has been having that. I do not believe that she has leukocytosis some diverticulitis Assessment & Plan (06/24/2017 6:11 PM CDT): Patient has an elevated white count. She has had an on and off. An extensive workup by Dr. perez did not show any myeloproliferative disorders. She is fatigued. She is afebrile here. Urine test was negative for leukocytes and nitrates. We will chest check a chest x-ray. Left carotid bruit 08/16/2016 9 Essential hypertension 12/09/201506/15 Overview (03/01/2017): Essential hypertension Assessment & Plan (09/26/2018 11:17 AM CDT): Hypertension is unchanged. Continue current treatment regimen. Dietary sodium restriction. Regular aerobic exercise. Continue current medications. Blood pressure will be reassessed in 3 months. Assessment & Plan (07/29/2018 10:49 AM CDT): Hypertension is improving with treatment. Continue current treatment regimen. Blood pressure will be reassessed in 4 weeks. Her blood pressure is low normal, maybe due to weigh loss. We will ask her to stop the lotensin. Assessment & Plan (05/23/2018 4:14 PM CDT): Hypertension is improving with treatment. Continue current treatment regimen. Blood pressure will be reassessed in 3 months. Assessment & Plan (02/27/2018 3:36 PM CDT): Hypertension is improving with treatment. Continue current treatment regimen. Continue current medications. Blood pressure will be reassessed in 3 months. Assessment & Plan (08/21/2017 4:43 PM CDT): Hypertension is unchanged. Continue current treatment regimen. Blood pressure will be reassessed in 3 months. Assessment & Plan (06/24/2017 6:13 PM CDT): Hypertension is unchanged. Continue current treatment regimen. Blood pressure will be reassessed in 4 weeks. Type 2 diabetes mellitus 12/09/2015 Overview (03/01/2017): Type 2 diabetes mellitus without complication Assessment & Plan (07/29/2018 10:48 AM CDT): Diabetes is improving with treatment. Continue current treatment regimen. Diabetes will be reassessed in 1 month. Will check labs today. She may need to stop metformin. Assessment & Plan (02/27/2018 3:37 PM CDT): Diabetes is improving with treatment. Continue current treatment regimen. Diabetes will be reassessed in 3 months. Assessment & Plan (08/21/2017 4:42 PM CDT): Diabetes is unchanged. Continue current treatment regimen. Diabetes will be reassessed in 3 months. Assessment & Plan (06/24/2017 6:11 PM CDT): Diabetes is unchanged. Continue current treatment regimen. Diabetes will be reassessed in 1 month. Cataract 12/09/2015 06/15/2019 Overview (03/01/2017): Cataract, right eye Preoperative state 07/01/2015 9 Overview (03/01/2017): Preoperative cardiovascular examination Premature atrial contraction 07/01/2015 06/15/2019 Overview (03/01/2017): Premature atrial contractions Diabetes mellitus 07/01/2015 06/15/2019 Overview (03/01/2017): DM (diabetes mellitus) Assessment & Plan (09/26/2018 11:16 AM CDT): Diabetes is unchanged. Continue current treatment regimen. Dietary recommendations for ADA diet. Regular aerobic exercise. Diabetes will be reassessed in 3 months. Assessment & Plan (10/08/2017 6:34 PM STAVE SAW OPERATOR): Diabetes is unchanged. Continue current treatment regimen. Diabetes will be reassessed in 1 month. Back pain 07/01/2015 06/15/2019 Overview (03/01/2017): Back pain Dyslipidemia 07/01/2015 06/15/2019 Overview (03/01/2017): Dyslipidemia Gastroparesis 07/27/2011 06/15/2019 Assessment & Plan (01/01/2019 11:21 AM STAVE SAW OPERATOR): She is concerned that the Reglan she is on for gastroparesis could feed into her tremor. I recommended her calling to discuss it with her GI doc for just stopping it. Though it could cause this it has also been looking at other alternatives then for her gastroparesis. Currently she reports that that is been pretty stable and controlled well by the medication. She reports she will call the GI doc today. Pain in extremity 09/05/2010 06/15/2019 Pure hypercholesterolemia 06/11/2004 Assessment & Plan (05/23/2018 4:14 PM CDT): Lipid abnormalities are improving with treatment. Pharmacotherapy as ordered. Lipids will be reassessed in 3 months. Immunizations Immunization Administration Dates Next Due Flucelvax Influenza Quad MDI 07/27/2020 Influenza, Quadrivalent, Hig h Dose, Preservative Free, Intrr 07/27/2020 Influenza, Quadrivalent, Spl it, Preservative Free, Intradermal 12/09/2015 Influenza, Trivalent, High D ose, Split, Preservative Free, Intramuscular 09/19/2019,09/08/2018,12/25/2016 Influenza, Trivalent, IM (MDV) 08/27/2013,2007 Influenza, Unspecified 09/23/2017,09/29/2008 Pneumococcal Conjugate PCV 13 12/25/2016 Pneumococcal Polysaccharide PPV23 11/11/2008 Td, Unspecified 11/25/1997 Td, adsorbed 11/25/1997 Tdap 06/05/2019,07/21/2008 Social History Tobacco Use Types Packs/Day Years Used Date Smoking Tobacco: Never Smokeless Tobacco: Never Tobacco Cessation:Counseling Given: Not Answered Alcohol Use Standard Drinks/Week Comments No 0 (1 standard drink = 0.6 oz pur e alcohol) [facility] [employer] Answer Date Recorded In the past 12 months has e [employer], gas, oil, or water [employer] threatened to shut off services in your home? No 02/04/2024 Humiliation, Afraid, Rape, and Kick questionnair e Answer Date Recorded Within the last year, have y ou been afraid of your partner or ex-partner? No 02/04/2024 Within the last year, have y ou been humiliated or emotionally abused in other ways by your partner or ex-partner? No Within the last year, have y ou been kicked, hit, slapped, or otherwise physically hurt by your partner or ex-partner? No 02/04/2024 Within the last year, have y ou been raped or forced to have any kind of sexual activity by your partner or ex-partner? No 02/04/2024 Social Connection and Isolat ion Panel [NHANES] Answer Date Recorded In a typical week, how many times do you talk on the phone with family, friends, or neighbors? More than three times a week 02/04/2024 How often do you get togethe r with friends or relatives? Three times a week 02/04/2024 How often do you attend chur ch or sikhism services? More than 4 times per year 02/04/2024 Do you belong to any clubs o r organizations such as taoist groups, unions, fraternal or athletic groups, or school groups? Yes 02/04/2024 How often do you attend meet ings of the clubs or organizations you belong to? Never 02/04/2024 Are you , , di vorced, , never , or living with a partner? 02/04/2024 AUDIT-C Answer Date Recorded Q1: How often do you have a drink containing alc ohol? Never 02/19/2024 Average Number of Drinks Not on file 024 Frequency of Binge Drinking Not on file 01/24 Overall Financial Resource Strain (CARDIA) Answe r Date Recorded How hard is it for you to pa y for the very basics like food, housing, medical care, and heating? Not very hard 02/04/2024 PHQ-2 Answer Date Recorded PHQ-2 Total Score (If total score is 3 or more points, staff should administer the PHQ-9) 0 02/03/2024 [facility] - Occupational Stress Questionnaire Answer Date Recorded Do you feel stress - tense, restless, nervous, or anxious, or unable to sleep at night because your mind is troubled all the time - these days? To some extent 02/04/2024 Exercise Vital Sign Answer Date Recorde d On average, how many days pe r week do you engage in moderate to strenuous exercise (like a brisk walk)? 0 days 02/04/2024 On average, how many minutes do you engage in exercise at this level? 0 min 02/04/2024 Hunger Vital Sign Answer Date Recorded Within the past 12 months, y ou worried that your food would run out before you got the money to buy more. Never true 04/08/20 24 Within the past 12 months, t he food you bought just didn't last and you didn't have money to get more. Never true 04/08/2024 PRAPARE - Transportation Answer Date Re corded In the past 12 months, has l ack of transportation kept you from medical appointments or from getting medications? No 01/23 In the past 12 months, has l ack of transportation kept you from meetings, work, or from getting things needed for daily living? No 02/04/2024 Housing Stability Vital Sign Answer Brandyn e Recorded In the last 12 months, was t here a time when you were not able to pay the mortgage or rent on time? No 02/04/2024 In the last 12 months, how many places have you lived? 1 02/04/2024 In the last 12 months, was t here a time when you did not have a steady place to sleep or slept in a nursing home (including now)? No 02/04/2024 Personal Safety Answer Date Recorded Have you ever been in or are you currently in a harmful physical or emotional relationship or is someone making you feel afraid or unsafe? Denies 02/04/2025 Comments No Sex and Gender Information Value Date Recorded Sex Assigned at Not on file Legal Sex Female 12:57 AM STAVE SAW OPERATOR Gender Identity Female 05/17/2022 2:15 PM CDT Sexual Orientation Straight 05/17/2022 2: 15 PM CDT Last Filed Vital Signs Vital Sign Reading Time Taken Comments Blood Pressure 152/67 02/04/2025 3:56 PM CDT Pulse 64 02/04/2025 3:56 PM CDT Temperature 36.4 C (97.6 F) 02/04/2025 12:13 PM CDT Respiratory Rate 34 02/04/2025 3:56 PM CDT Oxygen Saturation 97% 02/04/2025 3:56 PM CDT Inhaled Oxygen Concentration - - Weight 72.1 kg (159 lb) 02/04/2025 12:13 PM CDT Height 154.9 cm (5' 1 ) 02/04/2025 12:13 PM CDT Body Mass Index 30.04 02/04/2025 12:13 PM CDT Plan of Treatment Not on file Medical Devices Implanted Type Area Geothermal Electrical Engineer Device Identifier Shelf Expiration Date Model / Serial / Lot Lens Lens Bilateral : Eye Malone [employer] [id number] Galaxy [employer] Itec Protec Tri-Fix 6mm 13mm 1 Piece Anterior - [id number] - [id number] Implanted:Qty: 1 on 08/05/2018 by Destini Arce MD at [facility] Lens Left: Eye Malone [employer] 06/04/2020 [id number] / [id number] / Fusion Lumbar And Cervical Spine N/A: Neck Left Knee Left: Knee [employer] Entertainment[employer] Marco[employer] [id number] Angio-Seal Evolution 6fr .035in Guidewire Bypass Tube Suture - [id number] Implanted:Qty: 1 on 06/22/2021 by Dominguez Starkey MD at [facility] [employer] Marco 01/22/2022 [id number] / / [id number] Medtronic Inc Coil Embolization Coated Detachable Helical Concerto 6sdp7mo Nylon Oz-8-0-[place] - [id number] Implanted:Qty: 1 on 01/12/2024 at [facility] [employer] 10/03/2026 NV-2-6-HEL IX / / [id number] Medtronic Inc Coil Embolization Coated Detachable Helical Concerto 2svx5gs Nylon Jv-3-4-[place] - [id number] Implanted:Qty: 1 on 01/12/2024 at [facility] [employer] 10/19/2026 NV-2-4-HEL IX / / [id number] Medtronic Inc Coil Embolization Coated Detachable Helical Concerto 9wua0xo Nylon Yq-3-1-[place] - [id number] Implanted:Qty: 1 on 01/12/2024 at [facility] [employer] 10/19/2026 NV-2-4-HEL IX / / [id number] [employer] Marco Obsidio Embolic Liquid Proximal Us 1ml Syringe [id number] - [id number] Implanted:Qty: 1 on 01/12/2024 at [facility] [employer] Marco 08/24/2024 [id number] / / [id number] [employer] Marco Angio-Seal Vip 6fr Closere Device [id number] - [id number] Implanted:Qty: 1 on 01/12/2024 at [facility] [employer] 08/25/2024 [id number] / / [id number] [employer] Angio-Seal Vip 6fr Closere Device [id number] - [id number] Implanted:Qty: 1 on 02/04/2025 by Dominguez Starkey MD at [facility] [employer] 08/04/2025 [id number] / / [id number] Procedures Procedure Name Priority Date/Time Associated Diagnosis Comments POCT GLUCOSE DEVICE Routine 02/04/2025 1 :30 PM CDT LEFT HEART CATHETERIZATION WITH CORONARY ANGIOGRAPHY AND WITH AND WITHOUT LEFT VENTRICULOGRAM Routine 02/04/2025 1:13 PM CDT Coronary artery disease involving [place] coronary artery of [place] heart, unspecified whether angina present Abnormal stress test POCT GLUCOSE DEVICE Routine 02/04/2025 12:01 PM CDT EGFR Routine 01/25/2025 11:27 AM STAVE SAW OPERATOR Coronary artery disease involving [place] coronary artery of [place] heart, unspecified whether angina present Abnormal stress test DIFFERENTIAL AUTO Routine 01/25/2025 11:27 AM STAVE SAW OPERATOR Coronary artery disease involving [place] coronary artery of [place] heart, unspecified whether angina present Abnormal stress test CBC WITH AUTO DIFFERENTIAL Routine 01/25/2025 11:27 AM STAVE SAW OPERATOR Coronary artery disease involving [place] coronary artery of [place] heart, unspecified whether angina present Abnormal stress test BASIC METABOLIC PANEL Routine 01/25/2025 11:27 AM STAVE SAW OPERATOR Coronary artery disease involving [place] coronary artery of [place] heart, unspecified whether angina present Abnormal stress test PROTIME-INR Routine 01/25/2025 11:27 AM STAVE SAW OPERATOR Coronary artery disease involving [place] coronary artery of [place] heart, unspecified whether angina present Abnormal stress test TRANSTHORACIC ECHO (TTE) COMPLETE W DOPPLER/CF WO CONTRAST Routine 12/21/2024 1:45 PM STAVE SAW OPERATOR Atherosclerosis of [place] coronary artery of [place] heart without angina pectoris NM MPI SPECT (REST AND/OR STRESS) MULTIPLE STUDIES Schedule Routine, Read Routine (OP Routine) 12/11/2024 9:47 AM STAVE SAW OPERATOR Atherosclerosis of [place] coronary artery of [place] heart without angina pectoris STRESS TEST FOR DUAL READ Schedule Routine, Read Routine (OP Routine) 12/11/2024 8:47 AM STAVE SAW OPERATOR Atherosclerosis of [place] coronary artery of [place] heart without angina pectoris LIPID PANEL Routine 11/01/2021 Mixed hyperlipidemia HEMOGLOBIN A1C Routine 11/07/2020 4:35 PM STAVE SAW OPERATOR Type 2 diabetes mellitus without complication, without long-term current use of insulin (HCC) ALBUMIN CREATININE RATIO, URINE Routine 06/22/2020 9:15 AM CDT Type 2 diabetes mellitus without complication, without long-term current use of insulin (HCC) DIABETIC FOOT EXAM Routine 06/22/2020 DIABETIC EYE EXAM Routine 07/15/2019 DEXA AXIAL SKELETON BONE DENSITY 1 OR MORE SITES Schedule Routine, Read Routine (OP Routine) 12/29/2018 10:39 AM STAVE SAW OPERATOR Menopausal disorder from Last 3 Months or Most Recently Relevant to Health Maintenance Results * POCT glucose (02/04/2025 1:30 PM CDT) Glucose, POC 93 70 - 199 mg/dL Blood 02/04/2025 1:30 PM CDT 02/04/2025 1:30 PM CDT us Dominguez Starkey MD LAB POCT ORDERABLES - DEVICE Fi nal Result [facility] ([place] [facility] [place] [address] * LEFT HEART CATHETERIZATION WITH CORONARY ANGIOGRAPHY AND WITH AND WITHOUT LEFT VENTRICULOGRAM (02/04/2025 1:13 PM CDT) Anatomical Region Laterality Modality X-Ray Angiograph y 02/04/2025 Narrative 02/05/2025 9:33 AM CDT [employer] Job ID: [id number] [employer] Document ID: [id number] Dictated date/time: [id number] CARDIAC CATHETERIZATION An 79-year-old history of prior catheterization in 2020 showing moderate disease of the left anterior descending. She has been having chest pain. Followup stress test was positive by EKG criteria, however, normal by perfusion imaging. Echo was also normal. Due to persistent symptoms, she was referred for catheterization. INDICATION FOR PROCEDURE Coronary artery disease, abnormal stress test. PROCEDURE PERFORMED Left heart catheterization, selective coronary angiography, left ventriculography, vascular access closure. After obtaining informed consent, patient brought to the cardiac picket labor union suite. She was prepped and draped in a sterile fashion. Conscious sedation was administered by the picket labor [employer] staff under my supervision. A total of 2 mg Versed, 100 mcg of fentanyl and 50 mg of Benadryl were given in divided doses. See procedure log for further details. Total sedation time was 8 minutes. A 5-Khmer sheath was inserted in the right femoral artery. Selective coronary cannulation was performed using standard Brea catheters. Left ventriculography was performed in the JOE projection using pigtail followed by left heart pullback. At the end of procedure, the arterial sheath was removed and vascular access was closed using Angio-Seal with good hemostasis. FINDINGS: HEMODYNAMICS: LV pressure was 140/12, ascending aortic pressure 140/50. LEFT VENTRICULOGRAPHY: This was suboptimal, however, showed preserved left ventricular systolic function. Overall ejection fraction 55-60 percent. RIGHT CORONARY ARTERY: The right coronary artery was a dominant vessel and gives distally medium-sized posterior descending followed by small posterolateral branches. The right coronary system was angiographically normal. LEFT CORONARY ARTERY: The left main coronary artery had 30% proximal stenosis. The circumflex system gives several medium size obtuse marginal branches which were angiographically normal. The left anterior descending had mild calcifications proximally with 40% stenosis at the origin of the 2nd diagonal. The 1st diagonal was large and angiographically normal. The other diagonals were small and angiographically normal. IMPRESSION 1. Angiographically intermediate single-vessel coronary artery disease. 2. Normal left ventricular systolic function. 3. Normal left ventricular diastolic pressure. 4. Successful vascular access closure. CARE PLAN There are no high-grade lesions to warrant interventions. Continue medical therapy and risk factor modification. Dominguez Starkey MD Job ID/Internal Job ID: [id number] Dominguez Starkey MD CV CARDIAC CATH PROCEDURES Luisa l Result * POCT glucose (02/04/2025 12:01 PM CDT) Glucose, POC 106 70 - 199 mg/dL Blood 02/04/2025 12:0 1 PM CDT 02/04/2025 12:01 PM CDT Dominguez Starkey MD LAB POCT ORDERABLES - DEVICE Fi nal Result [facility] ([place]) [facility] [employer] [place] [place] [address] * eGFR (01/25/2025 11:27 AM STAVE SAW OPERATOR) eGFR 74 >=60 mL/min/1. 73 m2 Comment: Interpretive Data Reference Interval Normal >/= 90 mL/min/1.73m2 Mildly decreased* 60 - 89 mL/min/1.73m2 Mildly to moderately decreased 45 - 59 mL/min/1.73m2 Moderately to severely decreased 30 - 44 mL/min/1.73m2 Severely decreased 15 - 29 mL/min/1.73m2 Kidney Failure < 15 mL/min/1.73m2 *Relative to young adult level Estimated glomerular filtration rate is determined by the 2020 CKD-EPI equation recommended by the National Kidney Foundation (A Unifying Approach to GFR Estimation: Recommendations of the NKF-ASK Task Force on Reassessing the Inclusion of Race in Diagnosing Kidney Disease, JASN 2020). The CKD-EPI equation should not be used for patients with unstable renal function and has not been validated in children and those over 70. Current interpretive data was last reviewed 2021. Blood 01/25/2025 11:2 7 AM STAVE SAW OPERATOR 01/25/2025 11:36 AM STAVE SAW OPERATOR Dominguez Starkey MD LAB BLOOD ORDERABLES Final Resu lt [facility] [place] [address] * Differential, auto (01/25/2025 11:27 AM STAVE SAW OPERATOR) Neutrophil abs 5.8 1.5 - 6.5 K/cumm Imm gran abs 0.0 0.0 - 0.1 K/cumm [facility] ([place]) Lymphocyte abs 2.8 0.8 - 3.3 K/cumm [facility] ([place]) Monocyte abs 0.8 0.2 - 0.8 K/cumm [facility] ([place]) Eosinophil abs 0.3 0.0 - 0.5 K/cumm [facility] ([place]) Basophil abs 0.1 0.0 - 0.1 K/cumm [facility] ([place]) Neutrophil pct 59.4 % [facility] ([place]) Comment: Interpretive Data Percent cell count reference ranges are not reported, since discordance with absolute values may lead to misinterpretation of CBC data. Current Interpretive Data was last revised on 2018. Imm gran pct 0.3 % [facility] ([place]) Comment: Interpretive Data Percent cell count reference ranges are not reported, since discordance with absolute values may lead to misinterpretation of CBC data. Current Interpretive Data was last revised on 2018. Lymphocyte pct 28.6 % [facility] ([place] Comment: Interpretive Data Percent cell count reference ranges are not reported, since discordance with absolute values may lead to misinterpretation of CBC data. Current Interpretive Data was last revised on 2018. Monocyte pct 7.8 % [facility] ([place]) Comment: Interpretive Data Percent cell count reference ranges are not reported, since discordance with absolute values may lead to misinterpretation of CBC data. Current Interpretive Data was last revised on 2018. Eosinophil pct 2.9 % [facility] ([place] Comment: Interpretive Data Percent cell count reference ranges are not reported, since discordance with absolute values may lead to misinterpretation of CBC data. Current Interpretive Data was last revised on 2018. Basophil pct 1.0 % [facility] ([place]) Comment: Interpretive Data Percent cell count reference ranges are not reported, since discordance with absolute values may lead to misinterpretation of CBC data. Current Interpretive Data was last revised on 2018. Blood 01/25/2025 11:2 7 AM STAVE SAW OPERATOR 01/25/2025 11:37 AM STAVE SAW OPERATOR us Dominguez Starkey MD LAB BLOOD ORDERABLES Final Resu lt [facility] ([place]) [facility] [place] [place] [address] * (ABNORMAL) CBC with auto differential (01/25/2025 11:27 AM STAVE SAW OPERATOR) WBC 9.7 3.8 - 9.9 K/cumm Hgb 13.2 11.9 - 15.5 g/dL [facility] ([place]) Hct 41.1 35.6 - 45.5 % [facility] ([place]) Plt 405(H) 150 - 400 K/cumm [facility] ([place]) MPV 9.5 9.1 - 12.3 fL [facility] ([place]) RBC 4.49 3.90 - 5.20 M/cumm [facility] ([place]) MCV 91.5 81.3 - 96.4 fL [facility] ([place]) MCH 29.4 27.1 - 33.3 pg [facility] ([place]) MCHC 32.1(L) 32.3 - 35.7 g/dL [facility] ([place]) RDW CV 13.5 11.1 - 14.9 % [facility] ([place]) RDW SD 46.2 35.7 - 48.1 fL [facility] ([place]) NRBC abs 0.00 0.00 - 0.01 K/cumm [facility] ([place]) Blood 01/25/2025 11:2 7 AM STAVE SAW OPERATOR 01/25/2025 11:37 AM STAVE SAW OPERATOR us Dominguez Starkey MD LAB BLOOD ORDERABLES Final Resu lt [facility] ([place]) [facility] [employer] [place] [employer] [place] [address] * Protime-INR (01/25/2025 11:27 AM STAVE SAW OPERATOR) PT 10.1 9.7 - 13.0 sec [facility] INR 0.94 0.90 - 1.20 [facility] Comment: Interpretive data Oral anticoagulant therapeutic ranges: Venous thromboembolism prophylaxis or treatment: 2.0-3.0 CARDIOLOGY Standard range: 2.0-3.0 High-intensity range: 2.5-3.5 Refer to indication-specific guidelines for appropriate target ranges for prosthetic heart valve replacement. Current interpretive data was last revised on 2019. Blood 01/25/2025 11:2 7 AM STAVE SAW OPERATOR 01/25/2025 11:37 AM STAVE SAW OPERATOR Dominguez Starkey MD LAB BLOOD ORDERABLES Final Resu lt [facility] ([place] [place] [address] * Basic metabolic panel (01/25/2025 11:27 AM STAVE SAW OPERATOR) Sodium 139 135 - 145 mmol/L Potassium, pl 4.3 3.3 - 4.9 mmol/L [facility] Chloride 104 97 - 110 mmol/L [facility] ([place] CO2 24 22 - 32 mmol/L [facility] ([place]) Anion gap 11 2 - 15 mmol/L [facility] ([place]) BUN 14 6 - 25 mg/dL [facility]) Creatinine 0.80 0.60 - 1.10 mg/dL [facility] ([place]) Glucose 106 70 - 199 mg/dL [facility] ([place]) Comment: Interpretive Data Fasting glucose >/= 126 mg/dl is diagnostic for diabetes. Fasting is defined as no caloric intake for at least 8 hours. Fasting glucose between 100 mg/dl to 125 mg/dl is diagnostic of prediabetes. In a patient with classic symptoms of hyperglycemia or hyperglycemic crisis, a random glucose >/= 200 mg/dl is diagnostic for diabetes. In the absence of unequivocal hyperglycemia, results should be confirmed by repeat testing. The classification and Diagnosis of Diabetes Diabetes Care 2021; 46: S19-S40. Current interpretive data was last revised 2022. Calcium 9.7 8.5 - 10.3 mg/dL [facility] ([place]) Blood 01/25/2025 11:2 7 AM STAVE SAW OPERATOR 01/25/2025 11:36 AM STAVE SAW OPERATOR us Dominguez Starkey MD LAB BLOOD ORDERABLES Final Resu lt [facility] ([place]) [address] [place] [address] [place] [address] * TRANSTHORACIC ECHO (TTE) COMPLETE W DOPPLER/CF WO CONTRAST (12/21/2024 1:45 PM STAVE SAW OPERATOR) LV EF % CONS SCIMAGE Anatomical Region Laterality Modality Ultrasound 12/21/2024 1:21 PM STAVE SAW OPERATOR Narrative 12/21/2024 4:35 PM STAVE SAW OPERATOR [address] [address] Echocardiogram Report Patient Name: FELECIA MENDOZA A : 1945 Study Date: 12/21/2024 1:21:08 PM Gender: F Tech: NL Ref Provider: MAYRA UGALDE Height(Cm): 155 BSA: 1.77 Weight(Kg): 72.6 Quality: Adequate Order Provider: MAYRA UGALDE PROCEDURES: Echocardiographic Report: Transthoracic echocardiogram with complete 2D, M-Mode, and color Doppler examination. INDICATIONS: I25.10 Atherosclerotic heart disease of [place] coronary artery without angina pectoris. MEASUREMENTS: 2D/MM Value Range Doppler Value Range EF Mod BP 60 % [ 54 - 74 ] MOY Vmax 2.94 cm2 LA Dimension MM 3.06 cm [ 2.70 - 3.80 ] AV Mean PG 3 mmHg AoR Diam MM 4.04 cm [ 2.70 - 3.70 ] AV Peak Leonardo 1.15 m/s [ 1.00 - 1.70 ] ACS MM 1.73 cm AV VTI 28.39 cm LVOT Diam 2.27 cm LVOT Peak Leonardo 0.84 m/s [ 0.70 - 1.10 ] LVOT VTI 19.77 cm MV E Peak Leonardo 0.97 m/s [ 0.60 - 1.30 ] MV A Peak Leonardo 1.07 m/s [ 1.00 - 1.20 ] MV Mean PG 3 mmHg MV PHT 68 msec [ 20 - 100 ] MVA 3.30 MV Decel Time 233 msec [ 104 - 258 ] PV Peak Leonardo 0.90 m/s [ 0.40 - 0.80 ] TR Peak Leonardo 2.41 m/s [ 1.00 - 2.80 ] TR Peak PG 23 mmHg RVSP 26.00 mmHg [ 10.00 - 36.00 ] E` 0.06 m/s E/E` 15.91 [ <= 10.00 ] PA Pressure 26.00 mmHg [ 10.00 - 36.00 ] 2D/MM Value Range Doppler Value Range - FINDINGS: Atrial Septum: Normal atrial septum. Left Ventricle: Normal left ventricular systolic function with no focal wall motion abnormalities. Normal left ventricular size. Normal left ventricular wall thickness. Impaired diastolic relaxation Grade I. Ejection fraction is measured at 60 %. Left Atrium: There is moderate enlargement of left atrium. Right Ventricle: Normal right ventricular size. Normal right ventricular systolic function. Right Atrium: The right atrium is normal in size. Aortic Valve: Normal structure of the aortic valve. Mitral Valve: Mild mitral annular calcification. Pulmonic Valve: Normal structure of the pulmonic valve. Tricuspid Valve: Normal right ventricular systolic pressure. Estimated peak RVSP is 35 mmHg. Mild tricuspid regurgitation. Pericardium: Normal pericardium with no significant pericardial effusion. Aorta: Normal aortic root. Sinus of Valsalva is normal. Aortic arch is normal. Descending aorta is normal. IVC: Normal size and normal respiratory collapse consistent with normal right atrial pressure (<5 mmHg). Pulmonary Artery: Normal pulmonary artery size. CONCLUSIONS: Normal left ventricular systolic function with no focal wall motion abnormalities. Normal left ventricular size. Normal left ventricular wall thickness. Impaired diastolic relaxation Grade I. Ejection fraction is measured at 60 %. There is moderate enlargement of left atrium. Mild mitral annular calcification. Normal right ventricular systolic pressure. Estimated peak RVSP is 35 mmHg. Mild tricuspid regurgitation. Compared to prior echo report in 2020, there is essentially no change. Electronically Signed By: Dominguez Starkey MD 12/21/2024 4:34:39 PM STAVE SAW OPERATOR Procedure Note Dominguez Starkey MD - 12/21/[address] [address] Echocardiogram Report Patient Name: FELECIA MENDOZA A : 1945 Study Date: 12/21/2024 1:21:08 PM Gender: F Tech: NL Ref Provider: MAYRA UGALDE Height(Cm): 155 BSA: 1.77 Weight(Kg): 72.6 Quality: Adequate Order Provider: MAYRA UGALDE PROCEDURES: Echocardiographic Report: Transthoracic echocardiogram with complete 2D, M-Mode, and color Dopplerexamination. INDICATIONS: I25.10 Atherosclerotic heart disease of [place] coronary artery withoutangina pectoris. MEASUREMENTS: 2D/MM Value Range Doppler ValueRange EF Mod BP 60 % [ 54 - 74 ] MOY Vmax 2.94cm2 LA Dimension MM 3.06 cm [ 2.70 - 3.80 ] AV Mean PG 3 mmHg AoR Diam MM 4.04 cm [ 2.70 - 3.70 ] AV Peak Leonardo 1.15 m/s[ 1.00 - 1.70 ] ACS MM 1.73 cm AV VTI 28.39cm LVOT Diam 2.27 cm LVOT Peak Leonardo 0.84 m/s [ 0.70 - 1.10 ] LVOT VTI 19.77 cm MV E Peak Leonardo 0.97 m/s [ 0.60 - 1.30 ] MV A Peak Leonardo 1.07 m/s [ 1.00 - 1.20 ] MV Mean PG 3 mmHg MV PHT 68 msec [ 20 - 100 ] MVA 3.30 MV Decel Time 233 msec [ 104 - 258 ] PV Peak Leonardo 0.90 m/s [ 0.40 - 0.80 ] TR Peak Leonardo 2.41 m/s [ 1.00 - 2.80 ] TR Peak PG 23 mmHg RVSP 26.00 mmHg [ 10.00 - 36.00 ] E` 0.06 m/s E/E` 15.91 [ <= 10.00 ] PA Pressure 26.00 mmHg [ 10.00 - 36.00 ] 2D/MM Value Range Doppler ValueRange - FINDINGS: Atrial Septum: Normal atrial septum. Left Ventricle: Normal left ventricular systolic function with no focal wall motionabnormalities. Normal left ventricular size. Normal left ventricular wall thickness. Impaireddiastolic relaxation Grade I. Ejection fraction is measured at 60 %. Left Atrium: There is moderate enlargement of left atrium. Right Ventricle: Normal right ventricular size. Normal right ventricular systolicfunction. Right Atrium: The right atrium is normal in size. Aortic Valve: Normal structure of the aortic valve. Mitral Valve: Mild mitral annular calcification. Pulmonic Valve: Normal structure of the pulmonic valve. Tricuspid Valve: Normal right ventricular systolic pressure. Estimated peak RVSP is 35mmHg. Mild tricuspid regurgitation. Pericardium: Normal pericardium with no significant pericardial effusion. Aorta: Normal aortic root. Sinus of Valsalva is normal. Aortic arch is normal.Descending aorta is normal. IVC: Normal size and normal respiratory collapse consistent with normal rightatrial pressure (<5 mmHg). Pulmonary Artery: Normal pulmonary artery size. CONCLUSIONS: Normal left ventricular systolic function with no focal wall motionabnormalities. Normal left ventricular size. Normal left ventricular wall thickness. Impaireddiastolic relaxation Grade I. Ejection fraction is measured at 60 %. There is moderate enlargement of left atrium. Mild mitral annular calcification. Normal right ventricular systolic pressure. Estimated peak RVSP is 35mmHg. Mild tricuspid regurgitation. Compared to prior echo report in 2020, there is essentially no change. Electronically Signed By: Dominguez Starkey MD 12/21/2024 4:34:39 PM STAVE SAW OPERATOR Mayra Ugalde NP CV ECHO PROCEDURES Luisa l Result * NM MPI SPECT (Rest and/or Stress) Multiple Studies (12/11/2024 9:47 AM STAVE SAW OPERATOR) LV EF % CONS SCIMAGE Anatomical Region Laterality Modality Body N/A Nuclear Medicine 12/11/2024 7:22 AM STAVE SAW OPERATOR Narrative 12/11/2024 6:18 PM STAVE SAW OPERATOR [address] [address] Digital Theatre Report Patient Name: FELECIA MNEDOZA A : 1945 Study Date: 2024-12-11 7:22:51 AM Gender: F Tech: Ref Provider: MAYRA UGALDE Height(Cm): BSA: Weight(Kg): Order Provider: MAYRA UGALDE - PROCEDURES: Pharmacologic SPECT Report.: Myocardial perfusion imaging with Sestamibi SPECT at rest and post regadenoson (Lexiscan) infusion. INDICATIONS: I25.10 Atherosclerotic heart disease of [place] coronary artery without angina pectoris. FINDINGS: Perfusion: Normal perfusion imaging. LV Function: Left ventricular ejection fraction is 46 %. There is mild LV dysfunction. CONCLUSIONS: 1. Myocardial Perfusion: Probably normal rest and stress images. 2. Inferior wall diaphragmatic and hot liver/ bowel attenuation artifact. 3. Anteroapical wall breast attenuation artifact. 4. Left ventricle: Enlargement with mildly depressed systolic function (visually confirmed EF 40-50%). Electronically Signed By: Isaiah Connolly MD, [facility] 2024-12-11 6:17:29 PM STAVE SAW OPERATOR Procedure Note Isaiah Connolly MD - 12/11/[address] [address] Lexiscan Report Patient Name: FELECIA MENDOZA A : 1945 Study Date: 2024-12-11 7:22:51 AM Gender: F Tech: Ref Provider: MAYRA UGALDE Height(Cm): BSA: Weight(Kg): Order Provider: MAYRA UGALDE - PROCEDURES: Pharmacologic SPECT Report.: Myocardial perfusion imaging with Sestamibi SPECT at rest and postregadenoson (Lexiscan) infusion. INDICATIONS: I25.10 Atherosclerotic heart disease of [place] coronary artery withoutangina pectoris. FINDINGS: Perfusion: Normal perfusion imaging. LV Function: Left ventricular ejection fraction is 46 %. There is mild LVdysfunction. CONCLUSIONS: 1. Myocardial Perfusion: Probably normal rest and stress images. 2. Inferior wall diaphragmatic and hot liver/ bowel attenuationartifact. 3. Anteroapical wall breast attenuation artifact. 4. Left ventricle: Enlargement with mildly depressed systolic function(visually confirmed EF 40-50%). Electronically Signed By: Isaiah Connolly MD, [facility] 2024-12-11 6:17:29 PM STAVE SAW OPERATOR Mayra Ugalde [facility] PROCEDURES Final Result * Stress Test for Myocardial Perfusion (12/11/2024 8:47 AM STAVE SAW OPERATOR) LV EF % CONS SCIMAGE Anatomical Region Laterality Modality Nuclear Medicine 12/11/2024 8:30 AM STAVE SAW OPERATOR Narrative 12/11/2024 10:11 AM STAVE SAW OPERATOR [address] [address] Lexiscan Report Patient Name: FELECIA MENDOZA A : 1945 Study Date: 12/11/2024 8:30:00 AM Gender: F Tech: emely scott Ref Provider: MAYRA UGALDE Height(Cm): 155 BSA: 2.63 Weight(Kg): 161 Heart Rate: 118 Order Provider: MAYRA UGALDE PROCEDURES: Pharmacologic SPECT Report.: Myocardial perfusion imaging with Sestamibi SPECT at rest and post regadenoson (Lexiscan) infusion. INDICATIONS: Coronary Artery Disease and I25.10 Atherosclerotic heart disease of [place] coronary artery without angina pectoris. FINDINGS: Procedure Data: Resting HR 58 bpm Peak HR: 82 bpm Predicted Maximal HR 139 bpm Target HR: 118 bpm Percent Max Predicted HR Achieved: 58.99 % Baseline BP: 145/82 mmHg Peak BP: 150/79 mmHg Exercise Time: 00:10 Performed By: jered daniel rn. Supervising Physician: The Supervising Physician is lyla ron. Reason for Termination: Lexiscan protocol complete. Resting ECG: Normal sinus rhythm at 61 beats per minute, leftward axis, poor R-wave progression. Post Pharm ECG: Findings are borderline/equivocal for ischemia with 1 mm flattened to downsloping ST segment depression in lead 1 only. Arrhythmia: No arrhythmias seen. Cardiac Symptoms With Stress: Symptoms with stress were None. Exam Interpreted: Read by . CONCLUSIONS: 1. Negative Lexiscan pharmacologic stress test for chest pain. There was 1 mm flattened to downsloping ST segment depression in lead 1 only. This is borderline/equivocal for ischemia. Consider cardiology consultation if clinically indicated. 2. Nuclear images are pending and they will be reported separately. Electronically Signed By: Dr Lyla Ron 12/11/2024 10:09:46 AM STAVE SAW OPERATOR Procedure Note Lyla Ron MD - 12/11/[address] [address] Lexiscan Report Patient Name: FELECIA MENDOZA A : 1945 Study Date: 12/11/2024 8:30:00 AM Gender: F Tech: emely Arcos Provider: MAYRA UGALDE Height(Cm): 155 BSA: 2.63 Weight(Kg): 161 Heart Rate: 118 Order Provider: MAYRA UGALDE PROCEDURES: Pharmacologic SPECT Report.: Myocardial perfusion imaging with Sestamibi SPECT at rest and postregadenoson (Lexiscan) infusion. INDICATIONS: Coronary Artery Disease and I25.10 Atherosclerotic heart disease of [place] without angina pectoris. FINDINGS: Procedure Data: Resting HR 58 bpm Peak HR: 82 bpm Predicted Maximal HR 139 bpm Target HR: 118 bpm Percent Max Predicted HR Achieved: 58.99 % Baseline BP: 145/82 mmHg Peak BP: 150/79 mmHg Exercise Time: 00:10 Performed By: jered daniel rn. Supervising Physician: The Supervising Physician is lyla ron. Reason for Termination: Lexiscan protocol complete. Resting ECG: Normal sinus rhythm at 61 beats per minute, leftward axis, poor R- waveprogression. Post Pharm ECG: Findings are borderline/equivocal for ischemia with [address] segment depression in lead 1 only. Arrhythmia: No arrhythmias seen. Cardiac Symptoms With Stress: Symptoms with stress were None. Exam Interpreted: Read by . CONCLUSIONS: 1. Negative Lexiscan pharmacologic stress test for chest pain. There was 1 mm flattened to downsloping ST segment depression in lead 1only. This is borderline/equivocal for ischemia. Consider cardiology consultation if clinically indicated. 2. Nuclear images are pending and they will be reported separately. Electronically Signed By: Dr Lyla Ron 12/11/2024 10:09:46 AM STAVE SAW OPERATOR Mayra Ugalde NP CV STRESS PROCEDURES Fi nal Result * Lipid panel (11/01/2021) Pathologist [facility] [place] SCRIBED Cholesterol, Total 179 100 - 199 [facility] SCRIBED HDL 88 39 - 100 [facility] SCRIBED LDL 74 0 - 99 [facility] SCRIBED Triglycerides 99 0 - 149 [facility] Blood specimen (specimen) 11/01/2021 Dominguez Starkey MD LAB BLOOD ORDERABLES Final Resu lt Performing Organization Address [facility]/ZIP Co de Phone Number [facility] * Hemoglobin A1c (11/07/2020 4:35 PM STAVE SAW OPERATOR) Pathologist [facility] [place] Hgb A1C 5.5 4.0 - 5.6 % [facility] Estimated Average Glucose 111 mg/dL [facility] Comment: The ADA recommends reporting an estimated Average Glucose (eAG) with all Hemoglobin A1c results using the equation derived from a study of 507 normal and diabetic adults. Minority populations were underrepresented and children were not included. (Diabetes Care 31:1694-8493, 2008). The eAG is not equivalent to a fasting glucose. Blood specimen (specimen) 11/07/2020 4:35 PM STAVE SAW OPERATOR 11/07/2020 7:35 PM STAVE SAW OPERATOR us Emely Cruz MD LAB BLOOD ORDERABLES Fi nal Result Performing Organization Address City/[facility]/ZIP Co de Phone Number [facility] [address] [place] [address] * Albumin Creatinine Ratio, Urine (06/22/2020 9:15 AM CDT) Albumin Ur <12.0 mg/L [facility] Comment: Interpretive Data No reference range established. Current interpretive data was last revised 2019. Creatinine Ur 193.7 mg/dL [facility] Comment: Interpretive Data No reference range established. Current interpretive data was last revised 2019. Albumin Creatinine Ratio, Ur <6 1 - 29 mg/g [facility] Urine 06/22/2020 9:15 AM CDT 06/22/2020 1:08 PM CDT Emely Cruz MD LAB URINE ORDERABLES Fi nal Result [facility] [address] [place] [address] * Diabetic Foot Exam (06/22/2020) Result [facility] Historical Provider HEALTH MAINTENANCE Final Result * Diabetic Eye Exam (07/15/2019) Historical Provider HEALTH MAINTENANCE Final Result * Dexa Axial Skeleton Bone Density 1 or 2 Site (12/29/2018 10:39 AM STAVE SAW OPERATOR) Anatomical Region Laterality Modality Body N/A Other 12/29/2018 11:5 9 AM STAVE SAW OPERATOR Impressions 12/29/2018 12:02 PM STAVE SAW OPERATOR 1. LUMBAR SPINE T SCORE -0.3; NORMAL. 2. LEFT HIP T SCORE -1.2 NECK AND -0.5 TOTAL; OSTEOPENIA. COMMENT: W.H.O. defines the T-score of between -1 and -2.5 as osteopenia, the level at which there may be an increased risk of developing osteoporosis and fractures in the future. Osteoporosis is defined as T-score lower than -2.5 (significantly increased risk of fracture due to osteoporosis). T-score is a comparison to peak bone mineral density of young adult reference population. Z-score is a comparison to bone mineral density of sex and age group population. Electronically signed by: Prasanna Barillas Jr., M.D. Narrative 12/29/2018 12:02 PM STAVE SAW OPERATOR DEXA AXIAL SKELETON BONE DENSITY 1 OR MORE SITES HISTORY: Unspecified menopausal and perimenopausal disorder. Menopause/hysterectomy at age 39. FINDINGS: The bone mineral density of the lumbar spine is 0.983 g/cm2. The T-score is -0.3 consistent with normal bone mineral density. The bone mineral density of the total left hip is 0.885 g/cm2; T score is -0.5. The bone mineral density of the left femoral neck is 0.715 g/cm2; T score is -1.2. This is consistent with osteopenia. Procedure Note Prasanna Barillas Jr., MD - 12/29/2018 DEXA AXIAL SKELETON BONE DENSITY 1 OR MORE SITES HISTORY: Unspecified menopausal and perimenopausal disorder. Menopause/hysterectomy at age 39. FINDINGS: The bone mineral density of the lumbar spine is 0.983 g/cm2. The T-score is -0.3 consistent with normal bone mineral density. The bone mineral density of the total left hip is 0.885 g/cm2; T score is -0.5. The bone mineral density of the left femoral neck is 0.715 g/cm2; T score is -1.2. This is consistent with osteopenia. IMPRESSION: 1. LUMBAR SPINE T SCORE -0.3; NORMAL. 2. LEFT HIP T SCORE -1.2 NECK AND -0.5 TOTAL; OSTEOPENIA. COMMENT: W.H.O. defines the T-score of between -1 and -2.5 as osteopenia, the level at which there may be an increased risk of developing osteoporosis and fractures in the future. Osteoporosis is defined as T-score lower than -2.5 (significantly increased risk of fracture due to osteoporosis). T-score is a comparison to peak bone mineral density of young adult reference population. Z-score is a comparison to bone mineral density of sex and age group population. Electronically signed by: Prasanna Barillas Jr., M.D. Emely Cruz MD IMG DXA PROCEDURES Luisa l Result from Last 3 Months or Most Recently Relevant to Health Maintenance Insurance [address] [facility] [address] [facility] [id number] Advance Directives For more information, please contact: [phone] * Full Code (Latest Code Status on File) Date Activated Date Inactivated Comments 02/04/2025 1:42 PM 02/04/2025 8:17 PM * Full Code Date Activated Date Inactivated Comments 02/02/2024 5:04 AM 02/07/2024 7:09 PM * Full Code Date Activated Date Inactivated Comments 01/12/2024 6:45 PM 01/15/2024 6:48 PM * Full Code Date Activated Date Inactivated Comments 01/12/2024 6:45 PM 01/12/2024 6:45 PM * Full Code Date Activated Date Inactivated Comments 09/20/2023 10:20 AM 09/20/2023 4:23 PM Care Teams Lift Slab Operator Relationship Specialty Start Date End Date Jason Strickland MD PCP - General 08/31/21 Guero Hernandez MD Consulting Physician Gastroenterology 04/14/19
--- OUTSIDE RECORDS SUMMARY | 2025-02-10 10:56 | XMS_ITS | Encounter Summary ---
Author Organization [facility] Address [address] [place] [address] Care Team Providers Care Mechanical Product Engineer Name Role Phone Jaswant Kirby MD Primary Care Provider Unavail able Encounter Details Date Type Department Care Team (Late st Contact Info) Description 01/26/2004 Outpatient Historical [facility] Family Medicine [facility] [address] [facility] [address] [place] [address] Evette Yap MD NO ADDRESS ON FILE Social History Tobacco Use Types Packs/Day Years Used Date Smoking Tobacco: Never Assessed Comments Unknown Sex and Gender Information Value Date Recorded Sex Assigned at Not on file Legal Sex Female 2:40 AM DIRECTOR ONCOLOGY Gender Identity Not on file Sexual Orientation Not on file documented as of this encounter Plan of Treatment Not on file documented as of this encounter Visit Diagnoses Not on filedocumented in this encounter Care Teams Mechanical Product Engineer Relationship Specialty Start Date End Date Jaswant Kirby MD PCP - General Family Practice 08/27/16 documented as of this encounter
--- OUTSIDE RECORDS SUMMARY | 2025-02-10 10:56 | XMS_ITS | Encounter Summary ---
Author Organization [facility] Address [address] [place] [address] Care Team Providers Care Cleaner Operator Name Role Phone Jaswant Kirby MD Primary Care Provider Unavail able Encounter Details Date Type Department Care Team (Late st Contact Info) Description 06/30/2004 Outpatient Historical [facility] Family Medicine [facility] [address] [place] [address] [place] 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 Gender Identity Not on file Sexual Orientation Not on file documented as of this encounter Last Filed Vital Signs Vital Sign Reading Time Taken Comments Blood Pressure 156/90 06/30/2004 8:50 AM CDT Pulse 84 06/30/2004 8:50 AM CDT Temperature 36.9 C (98.4 F) 06/30/2004 8:50 AM CDT Respiratory Rate 20 06/30/2004 8:50 AM CDT Oxygen Saturation - - Inhaled Oxygen Concentration - - Weight 78 kg (172 lb) 06/30/2004 8:50 AM CDT Height - - Body Mass Index - - documented in this encounter Plan of Treatment Not on file documented as of this encounter Visit Diagnoses Not on filedocumented in this encounter Care Teams Cleaner Operator Relationship Specialty Start Date End Date Jaswant Kirby MD PCP - General Family Practice 08/27/16 documented as of this encounter
--- OUTSIDE RECORDS SUMMARY | 2025-02-10 10:56 | XMS_ITS | Encounter Summary ---
Author Organization [facility] Address [address] [place] [address] Care Team Providers Care Platform Man Name Role Phone Jaswant Kirby MD Primary Care Provider Unavail able Encounter Details Date Type Department Care Team (Late st Contact Info) Description 09/27/2004 Outpatient Historical [facility] Family Medicine [facility] [address] [facility] [address] [place] [address] [place] [address] 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
--- OUTSIDE RECORDS SUMMARY | 2025-02-10 10:56 | XMS_ITS | Encounter Summary ---
Author Organization [facility] Address [address] [place] [address] Care Team Providers Care Mechanical Integrity Engineer Name Role Phone Jaswant Kirby MD Primary Care Provider Unavail able Encounter Details Date Type Department Care Team (Late st Contact Info) Description 02/14/2005 Outpatient Historical [facility] Family Medicine [facility] [address] [facility] [address] [place] [address] Evette Yap MD NO ADDRESS ON FILE Social History Tobacco Use Types Packs/Day Years Used Date Smoking Tobacco: Never Assessed Comments Unknown Sex and Gender Information Value Date Recorded Sex Assigned at Not on file Legal Sex Female 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 Gender Identity Not on file Sexual Orientation Not on file documented as of this encounter Last Filed Vital Signs Vital Sign Reading Time Taken Comments Blood Pressure 122/74 02/14/2005 10:30 AM PRECISION AIRCRAFT SYSTEMS ASSEMBLER Pulse 80 02/14/2005 10:30 AM PRECISION AIRCRAFT SYSTEMS ASSEMBLER Temperature - - Respiratory Rate - - Oxygen Saturation - - Inhaled Oxygen Concentration - - Weight 77.1 kg (170 lb) 02/14/2005 10:30 AM PRECISION AIRCRAFT SYSTEMS ASSEMBLER Height - - Body Mass Index - - documented in this encounter Plan of Treatment Not on file documented as of this encounter Visit Diagnoses Not on filedocumented in this encounter Care Teams Mechanical Integrity Engineer Relationship Specialty Start Date End Date Jaswant Kirby MD PCP - General Family Practice 08/27/16 documented as of this encounter
--- OUTSIDE RECORDS SUMMARY | 2025-02-10 10:56 | XMS_ITS | Encounter Summary ---
Author Organization [facility] Address [address] [place] [address] Care Team Providers Care Prefitter Doors Name Role Phone Jaswant Kirby MD Primary Care Provider Unavail able Encounter Details Date Type Department Care Team (Late st Contact Info) Description 11/04/2003 Outpatient Historical [facility] Family Medicine [facility] [address] [facility] [address] [place] [address] [place] [address] [address] 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
--- OUTSIDE RECORDS SUMMARY | 2025-02-10 10:56 | XMS_ITS | Encounter Summary ---
Author Organization [facility] Address [address] [place] [address] Care Team Providers Care Radio Tower Technician Name Role Phone Jaswant Kirby MD Primary Care Provider Unavail able Encounter Details Date Type Department Care Team (Late st Contact Info) Description 01/16/2005 Outpatient Historical [facility] Family Medicine [place] [address] [address] [facility] [address] [place] [address] [place] [address] 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 Gender Identity Not on file Sexual Orientation Not on file documented as of this encounter Last Filed Vital Signs Vital Sign Reading Time Taken Comments Blood Pressure 126/86 01/16/2005 9:45 AM PACK PRESS OPERATOR Pulse 73 01/16/2005 9:45 AM PACK PRESS OPERATOR Temperature 36.6 C (97.8 F) 01/16/2005 9:45 AM PACK PRESS OPERATOR Respiratory Rate - - Oxygen Saturation - - Inhaled Oxygen Concentration - - Weight 78 kg (172 lb) 01/16/2005 9:45 AM PACK PRESS OPERATOR Height - - Body Mass Index - - documented in this encounter Plan of Treatment Not on file documented as of this encounter Visit Diagnoses Not on filedocumented in this encounter Care Teams Radio Tower Technician Relationship Specialty Start Date End Date Jaswant Kirby MD PCP - General Family Practice 08/27/16 documented as of this encounter
--- OUTSIDE RECORDS SUMMARY | 2025-02-10 10:56 | XMS_ITS | Encounter Summary ---
Author Organization [facility] Address [address] [place] [address] Care Team Providers Care Police [employer] Program Coordinator Name Role Phone Jaswant Kirby MD Primary Care Provider Unavail able Encounter Details Date Type Department Care Team (Late st Contact Info) Description 01/04/2005 Outpatient Historical [facility] Family Medicine [facility] [email or web address] [place] [address] [place] [address] 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 Gender Identity Not on file Sexual Orientation Not on file documented as of this encounter Last Filed Vital Signs Vital Sign Reading Time Taken Comments Blood Pressure 124/82 01/04/2005 9:45 AM MOTORBOAT MECHANIC HELPER Pulse 68 01/04/2005 9:45 AM MOTORBOAT MECHANIC HELPER Temperature - - Respiratory Rate 14 01/04/2005 9:45 AM MOTORBOAT MECHANIC HELPER Oxygen Saturation - - Inhaled Oxygen Concentration - - Weight 77.6 kg (171 lb) 01/04/2005 9:45 AM MOTORBOAT MECHANIC HELPER Height - - Body Mass Index - - documented in this encounter Plan of Treatment Not on file documented as of this encounter Visit Diagnoses Not on filedocumented in this encounter Care Teams [employer] Program Coordinator Relationship Specialty Start Date End Date Jaswant Kirby MD PCP - General Family Practice 08/27/16 documented as of this encounter
--- OUTSIDE RECORDS SUMMARY | 2025-02-10 10:56 | XMS_ITS | Encounter Summary ---
Author Organization [facility] Address 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
--- OUTSIDE RECORDS SUMMARY | 2025-02-10 10:56 | XMS_ITS | Encounter Summary ---
Author Organization [facility] Address [address] [place] [address] Care Team Providers Care Field Supervisor Name Role Phone Jaswant Kirby MD Primary Care Provider Unavail able Encounter Details Date Type Department Care Team (Late st Contact Info) Description 10/18/2004 Outpatient Historical [facility] [place] [address] [facility] [place] [address] Social History Tobacco Use Types Packs/Day Years Used Date Smoking Tobacco: Never Assessed Comments Unknown Sex and Gender Information Value Date Recorded Sex Assigned at Not on file Legal Sex Female 2:40 AM DEPARTMENT CHAIRPERSON Gender Identity Not on file Sexual Orientation Not on file documented as of this encounter Plan of Treatment Not on file documented as of this encounter Visit Diagnoses Not on filedocumented in this encounter Care Teams Field Supervisor Relationship Specialty Start Date End Date Jaswant Kirby MD PCP - General Family Practice 08/27/16 documented as of this encounter
--- OUTSIDE RECORDS SUMMARY | 2025-02-10 10:56 | XMS_ITS | Encounter Summary ---
Author Organization [facility] Address [address] [place] [address] Care Team Providers Care Licensed Embalmer Supervisor Name Role Phone Jaswant Kirby MD Primary Care Provider Unavail able Encounter Details Date Type Department Care Team (Late st Contact Info) Description 07/16/2017 Lab Requisition [facility] General Laboratory Services [address] [place] [address] Atul Haney MD [address] [place] [address] Encounter for general adult medical examination without abnormal findings Social History Tobacco Use Types Packs/Day Years Used Date Smoking Tobacco: Never Assessed Comments Unknown Sex and Gender Information Value Date Recorded Sex Assigned at Not on file Legal 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 Female 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 Gender Identity Not on file Sexual Orientation Not on file documented as of this encounter Plan of Treatment Not on file documented as of this encounter Procedures Procedure Name Priority Date/Time Associated Diagnosis Comments CBC WITH DIFFERENTIAL Routine 07/16/2017 12:33 PM CDT Encounter for general adult medical examination without abnormal findings VITAMIN D 25 HYDROXY Routine 07/16/2017 12:33 PM CDT Encounter for general adult medical examination without abnormal findings TSH Routine 07/16/2017 12:33 PM CDT Encounter for general adult medical examination without abnormal findings T4 FREE Routine 07/16/2017 12:33 PM CDT Encounter for general adult medical examination without abnormal findings HEMOGLOBIN A1C Routine 07/16/2017 12:33 PM CDT Encounter for general adult medical examination without abnormal findings VITAMIN B12 LEVEL Routine 07/16/2017 12: 33 PM CDT Encounter for general adult medical examination without abnormal findings LIPID PANEL Routine 07/16/2017 12:33 PM CDT Encounter for general adult medical examination without abnormal findings COMPREHENSIVE METABOLIC PANEL Routine 07/16/2017 12:33 PM CDT Encounter for general adult medical examination without abnormal findings documented in this encounter Results * VITAMIN B12 LEVEL (07/16/2017 12:33 PM CDT) VITAMIN B12 588 211 - 946 pg/mL 07/16/2017 2:24 PM CDT [facility] Comment: It has been reported that between 5 to 10% of patients with values between 200 and 400 pg/mL may experience neuropsychiatric and hematologic abnormalities due to occult B12 deficiency. Less than 1% of patients with values above 400 pg/mL will have symptoms. Blood Venipuncture / Unknown 07/16/2017 12:33 PM CDT 07/16/2017 1:01 PM CDT Atul Haney MD CHEMISTRY ORDERABLES Final R esult [facility]# [id number] [address] [place] [address] * TSH (07/16/2017 12:33 PM CDT) TSH 1.32 0.27 - 4.20 uIU/mL 07/16/2017 7:03 PM CDT [facility] Blood Venipuncture / Unknown 07/16/2017 12:33 PM CDT 07/16/2017 1:01 PM CDT Atul Haney MD CHEMISTRY ORDERABLES Final R esult Performing Organization Address City/[facility] Co de Phone Number [facility] [id number] [address] [place] [address] * (ABNORMAL) VITAMIN D 25 HYDROXY (07/16/2017 12:33 PM CDT) VITAMIN D TOTAL (25OH) 20(L) 30 - 100 ng/mL 07/16/2017 2:24 PM CDT [facility] Blood Venipuncture / Unknown 07/16/2017 12:33 PM CDT 07/16/2017 1:01 PM CDT Narrative [facility] - 07/16/2017 2:24 PM CDT Interpretive Data Chart: Deficient: 0 - 20 ng/mL Insufficient: 21 - 29 ng/mL Sufficient: 30 - 100 ng/mL Increased Risk of Hypercalciuria: >100 ng/mL Toxic: >150 ng/mL Atul Haney MD CHEMISTRY ORDERABLES Final R esult Performing Organization Address [facility] Co de Phone Number [facility] CLIA# [id number] [address] [place] [address] * HEMOGLOBIN A1C (07/16/2017 12:33 PM CDT) [facility] HEMOGLOBIN A1C 5.8 4.0 - 6.0 % 07/16/2017 6:24 PM CDT [facility] Comment:Note: Effective as o f 12/16/2015 a new methodology, Turbidimetric inhibition immunoassay (TINIA),has been implemented. EST. AVG GLUCOSE, A1C 120 mg/dL 07/16/2017 6:24 PM CDT [facility] Blood Venipuncture / Unknown 07/16/2017 12:33 PM CDT 07/16/2017 1:01 PM CDT Atul Haney MD CHEMISTRY ORDERABLES Final R esult Performing Organization Address [facility] Co de Phone Number [facility]# [id number] [address] [place] [address] * T4 FREE (07/16/2017 12:33 PM CDT) T4 FREE 1.48 0.90 - 1.70 ng/dL 07/16/2017 7:03 PM CDT [facility] Blood Venipuncture / Unknown 07/16/2017 12:33 PM CDT 07/16/2017 1:01 PM CDT Atul Haney MD CHEMISTRY ORDERABLES Final R esult [facility] [id number] [address] [place] [address] * LIPID PANEL (07/16/2017 12:33 PM CDT) Pathologist [facility] CHOLESTEROL 124 <200 mg/dL 07/16/2017 6:16 PM CDT [facility] TRIGLYCERIDE 111 <150 mg/dL 07/16/2017 6:16 PM CDT [facility] HDL 46 40 - 59 mg/dL 07/16/2017 6:16 PM CDT [facility] LDL CALCULATED 56 <100 mg/dL 07/16/2017 6:16 PM CDT [facility] NON-HDL CHOLESTEROL 78 <130 mg/dL 07/16/2017 6:16 PM CDT [facility] Blood Venipuncture / Unknown 07/16/2017 12:33 PM CDT 07/16/2017 1:01 PM CDT Narrative [facility] LABORATORY [facility] - 07/16/2017 6:16 PM CDT TOTAL CHOLESTEROL mg/dL Desirable <200 Borderline high 200-239 High >=240 TRIGLYCERIDES mg/dL Normal <150 Borderline high 150-199 High 200-499 Very high >=500 HDL CHOLESTEROL mg/dL Low <40 Normal 40-59 Desirable >=60 NON HDL CHOLESTEROL mg/dL Optimal <130 Near Optimal 130-159 Borderline High 160-189 Very High >=190 Calculated LDL mg/dL Optimal <100 Near Optimal 100-129 Borderline High 130-159 High 160-189 Very High >=190 ATPIII Guidelines Reference Ranges for Lipid Panels (NCEP/AMA) Atul Haney MD CHEMISTRY ORDERABLES Final R esult [facility] LABORATORY SERVICES [facility] CLIA# [id number] [address] [place] [address] * (ABNORMAL) CBC WITH DIFFERENTIAL (07/16/2017 12:33 PM CDT) WBC 23.6(H) 4.0 - 9.8 K/uL 07/16/2017 1:21 PM CDT [facility] RBC 2.85(L) 3.90 - 4.90 M/uL 07/16/2017 1:21 PM CDT [facility] - [facility] HEMOGLOBIN 8.2(L) 11.8 - 14.8 g/dL 07/16/2017 1:21 PM CDT [facility] - [facility] HEMATOCRIT 25.3(L) 35.5 - 44.0 % 07/16/2017 1:21 PM CDT [facility] MCV 88.8 82.0 - 99.0 fL 07/16/2017 1:21 PM CDT [facility] MCH 28.8 27.2 - 32.6 pg 07/16/2017 1:21 PM CDT [facility] - [facility] MCHC 32.4 31.5 - 35.5 g/dL 07/16/2017 1:21 PM CDT [facility] - [facility] RDW 13.8 11.5 - 14.5 % 07/16/2017 1:21 PM CDT [facility] RDW-STDEV 42.7 37.1 - 48.7 fL 07/16/2017 1:21 PM CDT [facility] - [facility] PLATELETS 726(H) 140 - 350 K/uL 07/16/2017 1:21 PM CDT [facility] - [facility] MPV 9.2(L) 9.3 - 12.4 fL 07/16/2017 1:21 PM CDT [facility] LABORATORY SERVICES - [facility] NEUTROPHILS 74 % 07/16/2017 1:21 PM T [facility] SERVICES - [facility] LYMPHOCYTES 16 % 07/16/2017 1:21 PM T [facility] - [facility] MONOCYTES 6 % 07/16/2017 1:21 PM CDT [facility] - [facility] EOSINOPHILS 1 % 07/16/2017 1:21 PM T [facility] SERVICES - [facility] BASOPHILS 1 % 07/16/2017 1:21 PM CDT [facility] - [facility] IMMATURE GRANULOCYTES 3 % 07/16/2017 1:21 PM T [facility] LABORATORY SERVICES [facility]. [facility] Comment:IG (Immature Granulo cyte) count includes Metamyelocytes, Myelocytes, and Promyelocytes NEUTROPHIL ABSOLUTE 17.39(H) 1.90 - 7.00 K/uL 07/16/2017 1:21 PM CDT [facility] LABORATORY [facility]. [facility] LYMPHOCYTE ABSOLUTE 3.82 0.70 - 4.50 K/uL 07/16/2017 1:21 PM CDT [facility] LABORATORY [facility] - . [facility] MONOCYTE ABSOLUTE 1.40(H) 0.10 - 1.30 K/uL 07/16/2017 1:21 PM T [facility] LABORATORY [facility] - [facility] EOSINOPHIL ABSOLUTE 0.24 0.00 - 0.70 K/uL 07/16/2017 1:21 PM T [facility] LABORATORY [facility]. [facility] BASOPHILS ABSOLUTE 0.15 0.00 - 0.20 K/uL 07/16/2017 1:21 PM T [facility] LABORATORY [facility] - . [facility] IMMATURE GRANULOCYTES ABSOLUTE 0.60(H) 0.00 - 0.03 K/uL 07/16/2017 1:21 PM T [facility] LABORATORY [facility]. [facility] Blood Venipuncture / Unknown 07/16/2017 12:33 PM CDT 07/16/2017 1:01 PM CDT us Atul Haney MD HEMATOLOGY ORDERABLES Final Result [facility] CLIA# [id number] [place] [address] * (ABNORMAL) COMPREHENSIVE METABOLIC PANEL (07/16/2017 12:33 PM CDT) SODIUM 137 136 - 145 mmol/L 07/16/2017 6:16 PM CDT [facility] - [facility] POTASSIUM 3.0(L) 3.5 - 5.0 mmol/L 07/16/2017 6:16 PM T [facility] - [facility] CHLORIDE 97(L) 98 - 107 mmol/L 07/16/2017 6:16 PM T [facility] - [facility] CO2 21(L) 22 - 29 mmol/L 07/16/2017 6:16 PM T [facility] - [facility] CALCIUM 9.1 8.6 - 10.2 mg/dL 07/16/2017 6:16 PM T [facility] - [facility] BUN 7(L) 8 - 23 mg/dL 07/16/2017 6:16 PM T [facility] CREATININE 0.62 0.51 - 0.95 mg/dL 07/16/2017 6:16 PM T [facility] Comment: The GFR result is not clinically significant on patients <18 or >70 years of age. GLUCOSE 132(H) 74 - 99 mg/dL 07/16/2017 6:16 PM T [facility] TOTAL PROTEIN 7.2 6.7 - 8.6 g/dL 07/16/2017 6:16 PM T [facility] ALBUMIN 3.5 3.5 - 5.2 g/dL 07/16/2017 6:16 PM T [facility] BILIRUBIN TOTAL 1.1 0.2 - 1.1 mg/dL 07/16/2017 6:16 PM T [facility] ALKALINE PHOSPHATASE 262(H) 35 - 104 U/L 07/16/2017 6:16 PM T [facility] - [facility] AST 47(H) <33 U/L 07/16/2017 6:16 PM T [facility] ALT 38(H) <34 U/L 07/16/2017 6:16 PM T [facility] GFR >60 mL/min/1.7 3 sq meter 07/16/2017 6:16 PM [facility] Comment: eGFR has not been validated for use in the elderly (> 70 years of age), women, patients with serious co-morbid conditions, or persons with extremes of body size or muscle mass and should also be interpreted with caution in patients with acute kidney failure, dialysis dependent patients, patients reporting exceptional dietary intake (e.g. vegetarian diet, high protein diets, creatine supplementation), and patients with severe liver disease. Based on National Kidney Disease Education Program If patient is , please refer to the GFR result. GFR, >60 mL/min/1.7 3 sq meter 07/16/2017 6:16 PM T [facility]OR[facility] ANION GAP 19(H) 8 - 16 mmol/L 07/16/2017 6:16 PM [facility] Blood Venipuncture / Unknown 07/16/2017 12:33 PM CDT 07/16/2017 1:01 PM CDT Narrative [facility] - 07/16/2017 6:16 PM CDT Samples containing indocyanine green cause interferences on Total and/or Direct Bilirubin and must not be measured. us Atul Haney MD CHEMISTRY ORDERABLES Final R esult [facility]# [id number] [address] [place] [address] [place] [address] documented in this encounter Visit Diagnoses Diagnosis Encounter for general adult medical examination without abnormal findings Routine general medical examination at a health care facility documented in this encounter Care Teams Licensed Embalmer Supervisor Relationship Specialty Start Date End Date Jaswant Kirby MD PCP - General Family Practice 08/27/16 documented as of this encounter
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
--- OUTSIDE RECORDS SUMMARY | 2025-02-10 10:56 | XMS_ITS | Encounter Summary ---
Author Organization [facility] Address [address] [place] [address] Care Team Providers Care Fitter Placer Name Role Phone Jaswant Kirby MD Primary Care Provider Unavail able Encounter Details Date Type Department Care Team (Late st Contact Info) Description 09/27/[address] [facility] Family Medicine [facility] [id number] [email or web address] [facility] [address] [place] [address] [place] [address] [email or web address] 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
--- OUTSIDE RECORDS SUMMARY | 2025-02-10 10:56 | XMS_ITS | Encounter Summary ---
Author Organization [facility] Address [address] [place] [address] Care Team Providers Care Senior [employer] Consultant Name Role Phone Jsawant Kirby MD Primary Care Provider Unavail able Encounter Details Date Type Department Care Team (Late st Contact Info) Description 06/26/2005 Outpatient Historical [facility] Family Medicine [facility] [address] [facility] [address] [place] [address] [place] 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 Gender Identity Not on file Sexual Orientation Not on file documented as of this encounter Last Filed Vital Signs Vital Sign Reading Time Taken Comments Blood Pressure 136/74 06/26/2005 4:30 PM CDT Pulse 76 06/26/2005 4:30 PM CDT Temperature - - Respiratory Rate 14 06/26/2005 4:30 PM CDT Oxygen Saturation - - Inhaled Oxygen Concentration - - Weight 85.3 kg (188 lb) 06/26/2005 4:30 PM CDT Height - - Body Mass Index - - documented in this encounter Plan of Treatment Not on file documented as of this encounter Visit Diagnoses Not on filedocumented in this encounter Care Teams Senior Solutions Consultant Relationship Specialty Start Date End Date Jaswant Kirby MD PCP - General Family Practice 08/27/16 documented as of this encounter
--- OUTSIDE RECORDS SUMMARY | 2025-02-10 10:56 | XMS_ITS | Encounter Summary ---
Author Organization [facility] Address [address] [place] [address] Care Team Providers Care Panel Lay Up Worker Name Role Phone Jaswant Kirby MD Primary Care Provider Unavail able Encounter Details Date Type Department Care Team (Late st Contact Info) Description 01/11/2004 Outpatient Historical [facility] Family Medicine [facility] [address] [facility] [address] [place] [address] [place] [address] 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
--- OUTSIDE RECORDS SUMMARY | 2025-02-10 10:57 | XMS_ITS | Clinical Summary ---
Author Organization [facility] Address [address] [place] [address] Care Team Providers Care Gas Roller Operator Name Role Phone Guero Hernandez MD Unavailable [phone] Jason Strickland MD Primary Care Provider [phone] Allergies Active Allergy Reactions Criticality Noted Date [...] (LIPITOR) 80 mg tabletIndicati ons:Atheroscle rosis of ugashik coronary artery of ugashik heart without angina pectoris TAKE 1 TABLET [...] q4h Assessment & Plan (01/13/2024 8:27 AM INBOUND INGREDIENT LOGISTICS SPECIALIST): - Continue home albuterol 2 puffs q4h IBS (irritable bowel syndrome) 01/13/2024 Acute pain due to injury 01/13/2024 Assessment & Plan (01/13/2024 8:36 AM INBOUND INGREDIENT LOGISTICS SPECIALIST): - Tylenol 1000 mg q6h - Tramadol 50mg q4h prn - Gabapentin 100mg nightly - Flexeril 5mg TID PRN Acute blood loss anemia 01/13/2024 Assessment & Plan (01/15/2024 1:29 PM INBOUND INGREDIENT LOGISTICS SPECIALIST): - 01/12: Hgb 11.1 - CBC monitored q8h - The patient's Hgb ranged 7.9-11.3 and was 7.9 at discharge - The patient was instructed to follow up with a CBC Hemorrhagic shock 01/12/2024 Traumatic hematoma of abdominal wall 01/12/2024 Assessment & Plan (01/15/2024 1:32 PM INBOUND INGREDIENT LOGISTICS SPECIALIST): #abdominal wall hematomas with concern for active [...] 02/01 Assessment & Plan (01/15/2024 1:31 PM INBOUND INGREDIENT LOGISTICS SPECIALIST): - S/p stent 11/2020 on plavix - Hold home plavix - Neurovascular surgeon Dr. Hall with [facility] [place], has not seen since 11/2021 - Plavix prescribed by ENERGY ASSISTANTKiran Haley with [facility] - The Plavix was stopped prior to discharge and a daily ASA 81mg was started - The patient was instructed to follow up with her PCP and Dr Hall to discuss whether to restart Plavix Acute intractable headache 11/08/2020 Assessment & Plan (11/08/2020 7:24 AM INBOUND INGREDIENT LOGISTICS SPECIALIST): With the change in the headaches will [...] 2020 Assessment & Plan (10/03/2020 8:49 AM INBOUND INGREDIENT LOGISTICS SPECIALIST): Recommend repeating Thyroid US in 6 months [...] daily Assessment & Plan (01/13/2024 8:33 AM INBOUND INGREDIENT LOGISTICS SPECIALIST): - Continue home atorvastatin 80mg daily, ezetimibe 10mg daily Swelling of right lower extremity 06/15/2019 BMI 26.0-26.9,adult 11/26/2018 Assessment & Plan (03/02/2020 9:25 AM CDT): I reviewed their bmi. They will continue with a healthy lifestyle. This is an old bmi entered per [facility] mandate. Assessment & Plan (06/15/2019 4:01 PM CDT): Discussed healthy diet and importance of regular physical activity. Assessment & Plan (11/26/2018 2:40 PM INBOUND INGREDIENT LOGISTICS SPECIALIST): BMI Follow-up includes: nutrition counseling, exercise counseling and education provided. She has lost weight with Wellbutrin as well as she is med concerted effort over the past year. She is working on 10/15 more lb. It was within effort. We reviewed healthy diet as well as exercise. High risk medication use 11/26/2018 Assessment & Plan (11/26/2018 2:44 PM INBOUND INGREDIENT LOGISTICS SPECIALIST): We reviewed current day concerns about benzos [...] 12/17/2017 Assessment & Plan (10/03/2020 8:50 AM INBOUND INGREDIENT LOGISTICS SPECIALIST): Coat throat with applesauce or drinkable yogurts [...] colonoscopy. Assessment & Plan (12/17/2017 2:32 PM INBOUND INGREDIENT LOGISTICS SPECIALIST): Judd for GERD in past and presently [...] - I explained these possibilities to Ms. Alfrdeo. We discussed the option to stop metoclopramide but she recalls developing severe GI symptoms and needing to be hospitalized when this occurred before. I defer to Dr. Cruz, who has been prescribing metoclopramide, and to Dr. Hernandez, Ms. S.'s contract engineer, to decide whether there is a substitute [...] risks and benefits of medication choice regarding Ms. S,s GI symptoms. - My suggestion thus is [...] No evidence of significant daytime drowsiness on Clark scale. No evidence of RBD on Stiasny-Kolster [...] onset: 71 - Familial: no - Distance: [place] - Slow gait: yes - Pull test [...] 03/31. Will try for an appointment with [facility]. Labs pending. Assessment & Plan (07/29/2018 10:47 [...] -SSI Assessment & Plan (01/13/2024 8:35 AM INBOUND INGREDIENT LOGISTICS SPECIALIST): - SSI while admitted Assessment & Plan [...] (06/24/2017 6:12 PM CDT): Patient was at [facility] to get any operation for a knee replacement and they canceled it due to her blood test that she had had done the week prior. We will go ahead and try to accommodate her orthopedic surgeon. I do not see any reasons medically why she cannot have knee replacement surgery but we will defer to her engineer booster and exhauster for her heart. There is no evidence [...] xanax Assessment & Plan (01/13/2024 8:31 AM INBOUND INGREDIENT LOGISTICS SPECIALIST): - Continue home bupropion 300 mg daily - Takes 0.5 mg xanax TID PRN - Started 0.25mg xanax TID PRN while admitted Assessment & Plan (07/29/2018 10:47 AM CDT): Worsening. Changed to Wellbutrin 150 3 months ago. Will increase to 300. Re Evaluate in 1 month. Assessment & Plan (10/08/2017 6:35 PM INBOUND INGREDIENT LOGISTICS SPECIALIST): Patient is wary of restarting an SSRI [...] daily Assessment & Plan (01/13/2024 8:32 AM INBOUND INGREDIENT LOGISTICS SPECIALIST): - Hold home amlodipine 2.5 mg daily Assessment & Plan (10/08/2017 6:34 PM INBOUND INGREDIENT LOGISTICS SPECIALIST): Hypertension is improving with treatment. Continue current treatment regimen. Blood pressure will be reassessed in 4 weeks. GERD (gastroesophageal reflux disease) 1 Assessment & Plan (02/02/2024 7:17 AM CDT): - home pepcid 40mg daily Assessment & Plan (01/13/2024 8:31 AM INBOUND INGREDIENT LOGISTICS SPECIALIST): - Continue home pepcid 40 mg daily Assessment & Plan (10/03/2020 8:52 AM INBOUND INGREDIENT LOGISTICS SPECIALIST): Continue Reglan and Pepcid daily Assessment & Plan (08/21/2017 4:42 PM CDT): Patient remains under PPIs. 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 She is going to back off the Reglan. Her knee GI symptoms return she is going to contact her contract engineer. She did notice an improvement when she decreased it to once a day and her tremor. Weight loss 12/04/2018 06/15/2019 Assessment & Plan (01/01/2019 11:21 AM INBOUND INGREDIENT LOGISTICS SPECIALIST): We went over the workups that she [...] suppression. Assessment & Plan (12/04/2018 9:35 AM INBOUND INGREDIENT LOGISTICS SPECIALIST): She did note this with the Wellbutrin [...] (05/06/2018): Added automatically from request for surgery [id number] Assessment & Plan (07/09/2018 1:58 PM CDT): [...] us know we would send her to photography intern. Bronchitis 01/07/2018 06/15/2019 Diverticulitis of large inte alana without bleeding 12/17/2017 06/15/2019 Diarrhea 11/04/2017 06/15/2019 Assessment & Plan (12/04/2017 1:36 PM INBOUND INGREDIENT LOGISTICS SPECIALIST): Start with incontinence. Colonoscopy soon if repeat CT scan does not show active diverticulitis Assessment & Plan (11/04/2017 8:27 PM INBOUND INGREDIENT LOGISTICS SPECIALIST): Patient id patient has sludge and not sure what is causing it. We will check a C diff we will also check O and P stool culture will refer her to GI Diverticulitis of large inte alana with perforation without bleeding 11/04/2017 06/15/2019 Assessment & Plan (10/24/2018 4:07 PM INBOUND INGREDIENT LOGISTICS SPECIALIST): dooing well with regular bms and no pain on bran and one piece fruit in the morning, Single episode of cramping responded to levsin SL. Worried about loss of muscle mass so advised regular exercise, continue diet and prn levsin and return prn. Assessment & Plan (01/17/2018 2:22 PM INBOUND INGREDIENT LOGISTICS SPECIALIST): Doing well with hi fiber diet and D went awy after first week and frequency of bms has dropped to present 2-3/day. No evidence recurrent ticitis. Discussed emergent and elective surgery depending on how disease progresses. Generally pleased to be feeling better. Advised stayin on the hi fiber diet forever and return prn. Assessment & Plan (12/04/2017 1:42 PM INBOUND INGREDIENT LOGISTICS SPECIALIST): Diagnosed a month ago, better after first [...] weeks Assessment & Plan (11/04/2017 8:28 PM INBOUND INGREDIENT LOGISTICS SPECIALIST): Clinically the patient has improved. The CT [...] weeks Assessment & Plan (10/23/2017 6:14 PM INBOUND INGREDIENT LOGISTICS SPECIALIST): Patient has a history of diverticulosis. She [...] 10/23/201705/26 Assessment & Plan (12/17/2017 2:31 PM INBOUND INGREDIENT LOGISTICS SPECIALIST): Diarrhea. CT [facility] soft calkl of single tic which may have been inflamed. No acute ticitis on recent CT [facility]. Never bleed in stool or fever. Colonoscopy [facility] 2 yrs ago. Also has ibs and has tried to maintain a zero fiber diet. Assessment & Plan (11/04/2017 8:26 PM INBOUND INGREDIENT LOGISTICS SPECIALIST): Patient is diverticulitis with a rupture and perforation. She is getting better. Her examination is unremarkable. We will observe this for now and check some labs. Assessment & Plan (10/23/2017 6:15 PM INBOUND INGREDIENT LOGISTICS SPECIALIST): Patient is a history of diverticulosis and will be treated for diverticulitis. Leukocytosis 05/16/2017 06/15/2019 Assessment & Plan (11/04/2017 8:26 PM INBOUND INGREDIENT LOGISTICS SPECIALIST): Patient has leukocytosis that she has been [...] months. Assessment & Plan (10/08/2017 6:34 PM INBOUND INGREDIENT LOGISTICS SPECIALIST): Diabetes is unchanged. Continue current treatment regimen. Diabetes will be reassessed in 1 month. Back pain 07/01/2015 06/15/2019 Overview (03/01/2017): Back pain Dyslipidemia 07/01/2015 06/15/2019 Overview (03/01/2017): Dyslipidemia Gastroparesis 07/27/2011 06/15/2019 Assessment & Plan (01/01/2019 11:21 AM INBOUND INGREDIENT LOGISTICS SPECIALIST): She is concerned that the Reglan she [...] Lipids will be reassessed in 3 months. Encounters Date Type Department Care Team Description 02/08/2025 Telephone [facility] at [address] [phone] Owen Amaro MA 02/04/2025 1:00 PM CDT - 02/04/2025 2:05 PM CDT Surgery [facility] [address] [place] [address] Dominguez Starkey MD LEFT HEART CATHETERIZATION WITH CORONARY ANGIOGRAPHY AND WITH OR WITHOUT LEFT VENTRICULOGRAM [id number] 02/04/2025 11:43 AM CDT - 02/04/2025 4:17 PM CDT Hospital Encounter [facility] [address] [place] [address] Dominguez Starkey MD Coronary artery disease involving ugashik coronary artery of ugashik heart, unspecified whether angina present; Abnormal stress test Discharge Disposition: Discharge to home or self care 01/26/2025 Telephone [facility] at [address] [phone] Owen Amaro MA 01/25/2025 11:15 AM INBOUND INGREDIENT LOGISTICS SPECIALIST Lab [address] [address] Coronary artery disease involving ugashik coronary artery of ugashik heart, unspecified whether angina present; Abnormal stress test 12/21/2024 1:01 PM INBOUND INGREDIENT LOGISTICS SPECIALIST - 12/21/2024 11:59 PM INBOUND INGREDIENT LOGISTICS SPECIALIST Hospital Encounter [facility] [address] [place] [address] Atherosclerosis of ugashik coronary artery of ugashik heart without angina pectoris Discharge Disposition: Discharge to home or self care 12/11/2024 7:31 AM INBOUND INGREDIENT LOGISTICS SPECIALIST - 12/11/2024 11:59 PM INBOUND INGREDIENT LOGISTICS SPECIALIST Hospital Encounter [facility] [address] [place] [address] Discharge Disposition: Discharge to home or self care 12/11/2024 7:31 AM INBOUND INGREDIENT LOGISTICS SPECIALIST - 12/11/2024 11:59 PM INBOUND INGREDIENT LOGISTICS SPECIALIST Hospital Encounter [facility] [address] [place] [address] Atherosclerosis of ugashik coronary artery of ugashik heart without angina pectoris Discharge Disposition: Discharge to home or self care 12/11/2024 7:30 AM INBOUND INGREDIENT LOGISTICS SPECIALIST - 12/11/2024 11:59 PM INBOUND INGREDIENT LOGISTICS SPECIALIST Hospital Encounter [facility] [address] [place] [address] Discharge Disposition: Discharge to home or self care 12/11/2024 7:30 AM INBOUND INGREDIENT LOGISTICS SPECIALIST - 12/11/2024 11:59 PM INBOUND INGREDIENT LOGISTICS SPECIALIST Hospital Encounter [facility] [address] [place] [address] Atherosclerosis of ugashik coronary artery of ugashik heart without angina pectoris Discharge Disposition: Discharge to home or self care from Last 3 Months Immunizations Immunization Administration Dates Next Due Flucelvax Influenza Quad MDI 07/27/2020 Influenza, Quadrivalent, Hig h Dose, Preservative Free, Intrr 07/27/2020 Influenza, Quadrivalent, Spl it, Preservative Free, Intradermal 12/09/2015 Influenza, Trivalent, High D ose, Split, Preservative Free, Intramuscular 09/19/2019,09/08/2018,12/25/2016 Influenza, Trivalent, IM (MDV) 08/27/2013,2007 Influenza, Unspecified 09/23/2017,09/29/2008 Pneumococcal Conjugate PCV 13 12/25/2016 Pneumococcal Polysaccharide PPV23 11/11/2008 Td, Unspecified 11/25/1997 Td, adsorbed 11/25/1997 Tdap 06/05/2019,07/21/2008 Surgical History Surgery Date Site/Laterality Comments TONSILLECTOMY Tonsillectomy APPENDECTOMY Appendectomy CHOLECYSTECTOMY Cholecystectomy TOTAL KNEE ARTHROPLASTY 11/25/2016 - 11/24/2017 Left BACK SURGERY 2015 OTHER SURGICAL HISTORY 11/25/2005 - 11/24/2006 cervical surgery OTHER SURGICAL HISTORY 11/25/2009 - 11/24/2010 Bladder, vaginal, rectal surgery OTHER SURGICAL HISTORY 11/25/2008 - 11/24/2009 [facility] Fundoplication OOPHORECTOMY CATARACT EXTRACTION 11/25/2016 - 12/25/2016 Right INTRAOCULAR LENS INSERTION COLONOSCOPY 07/26/2014 POLYPECTOMY CATARACT EXTRACTION 09/14/2018 Left TOTAL ABDOMINAL HYSTERECTOMY W/ BILATERAL SALPINGOOPHORECTOMY 11/25/1983 - 11/24/1984 Hysterectomy, total; endometriosis and fibroids; used HRT 2 yrs only; with BSO COLONOSCOPY 07/26/2018 - 08/24/2018 COLONOSCOPY 09/20/2023 EMBOLIZATION VASCULAR EXTRAVASATION ARTERIAL VENOUS OR LYMPHATIC 01/12/2024 N/A CARDIAC CATHETERIZATION 02/04/2025 N/A Procedure: LEFT HEART CATHETERIZATION WITH CORONARY ANGIOGRAPHY AND WITH OR WITHOUT LEFT VENTRICULOGRAM [id number]; Surgeon: Dominguez Starkey MD; Location: [facility] STRIPING MACHINE OPERATOR; Service: Cardiovascular; Laterality: N/A; Medical devices from this surgery are in the Medical Devices section. Medical History Medical History Date Comments Diabetes mellitus (HCC) Diabetes mellitus; Comments: [facility] 07/01/2015 - Hypertension Hypertension Hyperlipidemia Hyperlipidemia; Comments: [facility] 07/01/2015 - Asthma Asthma; Comments : [facility] 12/09/2015 - Irritable bowel syndrome IBS - I rritable bowel syndrome; Comments: [facility] 12/09/2015 - Gastroesophageal reflux disease GERD Osteoarthritis of knee Osteoarth ritis knee; Comments: [facility] 12/09/2015 - Hx Other Medical Cataract of rig ht eye; Comments: [facility] 12/09/2015 - Hx Other Medical Kyle Fundopli cation; Comments: [facility] 12/09/2015 - History of fundoplication Histor y of fundoplication; Comments: [facility] 12/09/2015 - History of cervical spinal surgery History of cervical spine surgery; Comments: [facility] 12/09/2015 - Status post lumbar spine operation History of lumbar spine surgery; Comments: [facility] 12/09/2015 - Coronary artery disease Diverticulitis of colon Gastroparesis Cataract Ocular hypertension, bilateral Epiretinal membrane (ERM) of right eye Peripheral retinal degenerat ion of right eye Colon polyp Anxiety Gastroparesis Irritable bowel syndrome (IBS) Family History Medical History Relation Name Comments COPD Brother Other Brother Glaucoma Daughter Rheum arthritis Daughter Coronary artery disease Father Jayjay nary artery disease; Heart disease Father Hypertension Father Hypertension; Stroke Father Stroke; Glaucoma Maternal Grandfather Rheum arthritis Maternal Grandmother Heart disease Mother Hypertension Mother Hypertension; Stroke Mother Stroke; Diabetes Mother's Sister Diabetes Paternal Grandmother Heart disease Sister 1 Hypertension Sister 1 Hypertension; Essential Tremor Sister 2 Glaucoma Sister 2 Other Sister 2 Family history of rheumatoid arthritis - daughter and grandmother; Breast cancer Neg Hx Macular degeneration Neg Hx Ovarian cancer Neg Hx Retinal detachment Neg Hx Thyroid cancer Neg Hx Relation Name Status Comments Brother Alive Lung Disease du e to exposure of paint Daughter Father Maternal Grandfather Maternal Grandmother Mother Mother's Sister Paternal Grandmother Sister 1 Sister 2 Social History Tobacco Use Types Packs/Day Years Used Date Smoking Tobacco: Never Smokeless Tobacco: Never Tobacco Cessation:Counseling Given: Not Answered Alcohol Use Standard Drinks/Week Comments No 0 (1 standard drink = 0.6 oz pur e alcohol) [facility] Utilities Answer Date Recorded In the past 12 months has th e electric, gas, oil, or water company threatened to shut off services in your [...] any clubs o r organizations such as restoration groups, unions, fraternal or athletic groups, or [...] staff should administer the PHQ-9) 0 02/03/2024 [facility] - Occupational Stress Questionnaire Answer Date [...] place to sleep or slept in a chcf (including now)? No 02/04/2024 Personal Safety Answer Date Recorded Have you ever been in or are you currently in a harmful physical or emotional relationship or is someone making you feel afraid or unsafe? Denies 02/04/2025 Comments No Sex and Gender Information Value Date Recorded Sex Assigned at Not on file Legal Sex Female 12:57 AM INBOUND INGREDIENT LOGISTICS SPECIALIST Gender Identity Female 05/17/2022 2:15 PM CDT Sexual Orientation Straight 05/17/2022 2: 15 PM CDT Obstetrics History Para Term AB IAB SAB Ectopic Multiple Livin g Live Births 2 2 2 Date Outcome GA Total Labor Labor/2nd/3rd Weight Sex Type Anes PTL Thuy A1 A5 Name Clin Term Term Last Filed Vital Signs Vital Sign Reading [...] 02/04/2025 12:13 PM CDT Plan of Treatment Health Maintenance Due Date Last Done Comments Hepatitis B Screening 1961 Zoster Vaccine (1 of 2) 1993 Osteoporosis Screening-Bone Density Scan 12/29/2020 12/29/2018 Hemoglobin A1C 05/08/2021 11/07/2020, 05/26, 10/28/2019, Additional history exists Albumin Creatinine Ratio, Urine 06/22/2021 , 10/28/2019 Foot Exam 06/22/2021 06/22/2020, 05/26, 04/27/2019 Well Visit 65+ 06/22/2021 06/22/2020, 11/26/2018 Lipid Panel 11/01/2022 11/01/2021, 05/26, 10/28/2019, Additional history exists Dilated Eye Exam 03/19/2023 03/19/2022, , 07/15/2019, Additional history exists Influenza Vaccine (#1) 2024 , 07/27/2020, 09/19/2019, Additional history exists Depression Screening 01/31/2025 02/01/2024, 11/07/2020, 07/27/2020, Additional history exists eGFR 01/25/2026 01/25/2025, 03/0 07/2024, 01/13/2024, Additional history exists Fall Risk Assessment 02/04/2026 02/04/2025, 11/07/2020, 07/27/2020, Additional history exists DTaP/Tdap/Td Vaccine (3 - Td or Tdap) 06/05/2029 06/05/2019, 07/21/2008, 11/25/1997, Additional history exists Pneumococcal vaccine 65+ Completed 12/25/2016, 10/25 Medical Devices Implanted Type Area Infusion Rn Device Identifier Shelf Expiration Date Model / Serial / Lot Lens Lens Bilateral : Eye [employer] [id number] TecNixon Tecnis Itec Protec Tri-Fix 6mm 13mm 1 Piece Anterior - [id number] - [id number] Implanted:Qty: 1 on 08/05/2018 by Destini Arce MD at [facility] Lens Left: Eye [employer] 06/04/2020 [id number] / [id number] / Fusion Lumbar And Cervical Spine N/A: Neck Left Knee Left: Knee Daig Marco[employer] [id number] Angio-Seal Evolution 6fr .035in Guidewire Bypass Tube Suture - [id number] Implanted:Qty: 1 on 06/22/2021 by Dominguez Starkey MD at [facility] [employer] Marco 01/22/2022 [id number] / / [id number] Medtronic Inc Coil Embolization Coated Detachable Helical Concerto 0moi4ng Nylon Bz-2-3-[place] - [id number] Implanted:Qty: 1 on 01/12/2024 at [facility] [employer] 10/03/2026 NV-2-6-HEL IX / / [id number] Medtronic Inc Coil Embolization Coated Detachable Helical Concerto 7ypk3il Nylon Jc-4-9-[place] - [id number] Implanted:Qty: 1 on 01/12/2024 at [facility] [employer] 10/19/2026 NV-2-4-HEL IX / / [id number] Medtronic Inc Coil Embolization Coated Detachable Helical Concerto 7adt8ch Nylon Pw-2-8-[place] - [id number] Implanted:Qty: 1 on 01/12/2024 at [facility] [employer] 10/19/2026 NV-2-4-HEL IX / / [id number] Brandfolder Obsidio Embolic Liquid Proximal Us 1ml Syringe [id number] - [id number] Implanted:Qty: 1 on 01/12/2024 at [facility] [employer] Marco 08/24/2024 [id number] / / [id number] [employer] Angio-Seal Vip 6fr Closere Device [id number] - [id number] Implanted:Qty: 1 on 01/12/2024 at [facility] [email or web address] 08/25/2024 [id number] / / [id number] [employer] Angio-Seal Vip 6fr Closere Device [id number] - [id number] Implanted:Qty: 1 on 02/04/2025 by Dominguez Starkey MD at [facility] [email or web address] 08/04/2025 [id number] / / [id number] Procedures Procedure Name Priority Date/Time Associated Diagnosis Comments POCT GLUCOSE DEVICE Routine 02/04/2025 1 :30 PM CDT LEFT HEART CATHETERIZATION WITH CORONARY ANGIOGRAPHY AND WITH AND WITHOUT LEFT VENTRICULOGRAM Routine 02/04/2025 1:13 PM CDT Coronary artery disease involving ugashik coronary artery of ugashik heart, unspecified whether angina present Abnormal stress test POCT GLUCOSE DEVICE Routine 02/04/2025 12:01 PM CDT EGFR Routine 01/25/2025 11:27 AM INBOUND INGREDIENT LOGISTICS SPECIALIST Coronary artery disease involving ugashik coronary artery of ugashik heart, unspecified whether angina present Abnormal stress test DIFFERENTIAL AUTO Routine 01/25/2025 11:27 AM INBOUND INGREDIENT LOGISTICS SPECIALIST Coronary artery disease involving ugashik coronary artery of ugash[place] heart, unspecified whether angina present Abnormal stress test CBC WITH AUTO DIFFERENTIAL Routine 01/25/2025 11:27 AM INBOUND INGREDIENT LOGISTICS SPECIALIST Coronary artery disease involving ugashik coronary artery of ugashik heart, unspecified whether angina present Abnormal stress test BASIC METABOLIC PANEL Routine 01/25/2025 11:27 AM INBOUND INGREDIENT LOGISTICS SPECIALIST Coronary artery disease involving ugashik coronary artery of ugashik heart, unspecified whether angina present Abnormal stress test PROTIME-INR Routine 01/25/2025 11:27 AM INBOUND INGREDIENT LOGISTICS SPECIALIST Coronary artery disease involving ugashik coronary artery of ugashik heart, unspecified whether angina present Abnormal stress test TRANSTHORACIC ECHO (TTE) COMPLETE W DOPPLER/CF WO CONTRAST Routine 12/21/2024 1:45 PM INBOUND INGREDIENT LOGISTICS SPECIALIST Atherosclerosis of ugashik coronary artery of ugashik heart without angina pectoris NM MPI SPECT (REST AND/OR STRESS) MULTIPLE STUDIES Schedule Routine, Read Routine (OP Routine) 12/11/2024 9:47 AM INBOUND INGREDIENT LOGISTICS SPECIALIST Atherosclerosis of ugashik coronary artery of ugashik heart without angina pectoris STRESS TEST FOR DUAL READ Schedule Routine, Read Routine (OP Routine) 12/11/2024 8:47 AM INBOUND INGREDIENT LOGISTICS SPECIALIST Atherosclerosis of ugashik coronary artery of ugashik heart without angina pectoris LIPID PANEL Routine 11/01/2021 Mixed hyperlipidemia HEMOGLOBIN A1C Routine 11/07/2020 4:35 PM INBOUND INGREDIENT LOGISTICS SPECIALIST Type 2 diabetes mellitus without complication, without long-term current use of insulin (HCC) ALBUMIN CREATININE RATIO, URINE Routine 06/22/2020 9:15 AM CDT Type 2 diabetes mellitus without complication, without long-term current use of insulin (HCC) DIABETIC FOOT EXAM Routine 06/22/2020 DIABETIC EYE EXAM Routine 07/15/2019 DEXA AXIAL SKELETON BONE DENSITY 1 OR MORE SITES Schedule Routine, Read Routine (OP Routine) 12/29/2018 10:39 AM INBOUND INGREDIENT LOGISTICS SPECIALIST Menopausal disorder from Last 3 Months or Most Recently Relevant to Health Maintenance Results * POCT glucose (02/04/2025 1:30 PM CDT) Glucose, POC 93 70 - 199 mg/dL Blood 02/04/2025 1:30 PM CDT 02/04/2025 1:30 PM CDT Dominguez Starkey MD LAB POCT ORDERABLES - DEVICE Fi nal Result ROD CELAYA ([place]) 1 [facility] Department of Laboratories [place], [place] [id number] * LEFT HEART CATHETERIZATION WITH CORONARY ANGIOGRAPHY AND WITH AND WITHOUT LEFT VENTRICULOGRAM (02/04/2025 1:13 PM CDT) Anatomical Region Laterality Modality X-Ray Angiograph y 02/04/2025 Narrative 02/05/2025 9:33 AM CDT [employer] Job ID: [id number] [employer] Document ID: [id number] Dictated date/time: [id number] CARDIAC CATHETERIZATION An 79-year-old history of prior [...] informed consent, patient brought to the cardiac label sewer suite. She was prepped and draped in a sterile fashion. Conscious sedation was administered by the label sewer staff under my supervision. A total of 2 mg Versed, 100 mcg of fentanyl and 50 mg of Benadryl were given in divided doses. See procedure log for further details. Total sedation time was 8 minutes. A 5-Mexican sheath was inserted in the right femoral [...] Dominguez Starkey MD Job ID/Internal Job ID: [id number] Dominguez Starkey MD CV CARDIAC CATH PROCEDURES Luisa l Result * POCT glucose (02/04/2025 12:01 PM CDT) Glucose, POC 106 70 - 199 mg/dL Blood 02/04/2025 12:0 1 PM CDT 02/04/2025 12:01 PM CDT Dominguez Starkey MD LAB POCT ORDERABLES - DEVICE Fi nal Result Performing Organization Address City/State/[facility] Co de Phone Number ROD CELAYA [place]) 1 [facility] [place] [address] * eGFR (01/25/2025 11:27 AM INBOUND INGREDIENT LOGISTICS SPECIALIST) eGFR 74 >=60 mL/min/1. 73 m2 Comment: [...] reviewed 2021. Blood 01/25/2025 11:2 7 AM INBOUND INGREDIENT LOGISTICS SPECIALIST 01/25/2025 11:36 AM INBOUND INGREDIENT LOGISTICS SPECIALIST us Dominguez Starkey MD LAB BLOOD ORDERABLES Final Resu lt [facility] ([place]) 1 [facility] [place] [address] * Differential, auto (01/25/2025 11:27 AM INBOUND INGREDIENT LOGISTICS SPECIALIST) Neutrophil abs 5.8 1.5 - 6.5 K/cumm [...] Neutrophil pct 59.4 % [facility] ([place]) Comment: Interpretive Data Percent cell count reference ranges are not reported, since discordance with absolute values may lead to misinterpretation of CBC data. Current Interpretive Data was last revised on 2018. Imm gran pct 0.3 % [facility] ([place]) Comment: Interpretive Data [...] 2018. Basophil pct 1.0 % [facility] ([place]) Comment: Interpretive Data Percent cell count reference ranges are not reported, since discordance with absolute values may lead to misinterpretation of CBC data. Current Interpretive Data was last revised on 2018. Blood 01/25/2025 11:2 7 AM INBOUND INGREDIENT LOGISTICS SPECIALIST 01/25/2025 11:37 AM INBOUND INGREDIENT LOGISTICS SPECIALIST us Dominguez Starkey MD LAB BLOOD ORDERABLES Final Resu lt [facility] ([place]) 1 [facility] [place] [address] * (ABNORMAL) CBC with auto differential (01/25/2025 11:27 AM INBOUND INGREDIENT LOGISTICS SPECIALIST) WBC 9.7 3.8 - 9.9 K/cumm Hgb [...] RDW SD 46.2 35.7 - 48.1 fL [facility] ([place]) NRBC abs 0.00 0.00 - 0.01 K/cumm [facility] ([place]) Blood 01/25/2025 11:2 7 AM INBOUND INGREDIENT LOGISTICS SPECIALIST 01/25/2025 11:37 AM INBOUND INGREDIENT LOGISTICS SPECIALIST Dominguez Starkey MD LAB BLOOD ORDERABLES Final Resu lt Performing Organization Address City/[facility] Co de Phone Number ROD CELAYA ([place]) 1 [facility] [place] [place] [address] * Protime-INR (01/25/2025 11:27 AM INBOUND INGREDIENT LOGISTICS SPECIALIST) PT 10.1 9.7 - 13.0 sec [facility] ([place]) INR 0.94 0.90 - 1.20 [facility] ([place]) Comment: Interpretive data Oral anticoagulant therapeutic ranges: Venous thromboembolism prophylaxis or treatment: 2.0-3.0 CARDIOLOGY Standard range: 2.0-3.0 High-intensity range: 2.5-3.5 Refer to indication-specific guidelines for appropriate target ranges for prosthetic heart valve replacement. Current interpretive data was last revised on 2019. Blood 01/25/2025 11:2 7 AM INBOUND INGREDIENT LOGISTICS SPECIALIST 01/25/2025 11:37 AM INBOUND INGREDIENT LOGISTICS SPECIALIST Dominguez Starkey MD LAB BLOOD ORDERABLES Final Resu lt Performing Organization Address City/[facility] Co de Phone Number [facility] YOMI ([place]) 1 [facility] [place] [address] * Basic metabolic panel (01/25/2025 11:27 AM INBOUND INGREDIENT LOGISTICS SPECIALIST) Sodium 139 135 - 145 mmol/L Potassium, pl 4.3 3.3 - 4.9 mmol/L [facility] ([place]) Chloride 104 97 - 110 mmol/L [facility] ([place]) CO2 24 22 - 32 mmol/L [facility] ([place]) Anion gap 11 2 - 15 mmol/L [facility] ([place]) BUN 14 6 - 25 mg/dL [facility] ([place]) Creatinine 0.80 0.60 - 1.10 mg/dL [facility] ([place]) Glucose 106 70 - 199 mg/dL [facility] ([place]) Comment: Interpretive Data Fasting glucose >/= 126 [...] 2022. Calcium 9.7 8.5 - 10.3 mg/dL [facility] ([place]) Blood 01/25/2025 11:2 7 AM INBOUND INGREDIENT LOGISTICS SPECIALIST 01/25/2025 11:36 AM INBOUND INGREDIENT LOGISTICS SPECIALIST us Dominguez Starkey MD LAB BLOOD ORDERABLES Final Resu lt [facility] ([place]) 1 [facility] [place] [address] * TRANSTHORACIC ECHO (TTE) COMPLETE W DOPPLER/CF WO CONTRAST (12/21/2024 1:45 PM INBOUND INGREDIENT LOGISTICS SPECIALIST) LV EF % CONS SCIMAGE Anatomical Region Laterality Modality Ultrasound 12/21/2024 1:21 PM INBOUND INGREDIENT LOGISTICS SPECIALIST Narrative 12/21/2024 4:35 PM INBOUND INGREDIENT LOGISTICS SPECIALIST [address] [address] Echocardiogram Report Patient Name: FELECIA MENDOZA A : 1945 Study Date: 12/21/2024 1:21:08 PM Gender: F Tech: NL Ref Provider: MAYRA UGALDE Height(Cm): 155 BSA: 1.77 Weight(Kg): 72.6 Quality: Adequate Order Provider: MAYRA UGALDE PROCEDURES: Echocardiographic Report: Transthoracic echocardiogram with complete 2D, M-Mode, and color Doppler examination. INDICATIONS: I25.10 Atherosclerotic heart disease of [place] coronary artery without angina pectoris. MEASUREMENTS: 2D/MM [...] By: Dominguez Starkey MD 12/21/2024 4:34:39 PM INBOUND INGREDIENT LOGISTICS SPECIALIST Procedure Note Dominguez Starkey MD - 12/21/[address] [address] Echocardiogram Report Patient Name: FELECIA MENDOZA A : 1945 Study Date: 12/21/2024 1:21:08 PM Gender: F Tech: NL Ref Provider: MAYRA UGALDE Height(Cm): 155 BSA: 1.77 Weight(Kg): 72.6 Quality: Adequate Order Provider: MAYRA UGALDE PROCEDURES: Echocardiographic Report: Transthoracic echocardiogram with complete 2D, M-Mode, and color Dopplerexamination. INDICATIONS: I25.10 Atherosclerotic heart disease of [place] coronary artery withoutangina pectoris. MEASUREMENTS: 2D/MM Value [...] By: Dominguez Starkey MD 12/21/2024 4:34:39 PM INBOUND INGREDIENT LOGISTICS SPECIALIST Mayra Ugalde NP CV ECHO PROCEDURES Luisa l Result * NM MPI SPECT (Rest and/or Stress) Multiple Studies (12/11/2024 9:47 AM INBOUND INGREDIENT LOGISTICS SPECIALIST) LV EF % CONS SCIMAGE Anatomical Region Laterality Modality Body N/A Nuclear Medicine 12/11/2024 7:22 AM INBOUND INGREDIENT LOGISTICS SPECIALIST Narrative 12/11/2024 6:18 PM INBOUND INGREDIENT LOGISTICS SPECIALIST [address] [address] [employer] Report Patient Name: FELECIA MENDOZA A : 1945 Study Date: 2024-12-11 7:22:51 AM Gender: F Tech: Ref Provider: MAYRA UGALDE Height(Cm): BSA: Weight(Kg): Order Provider: MAYRA UGALDE - PROCEDURES: Pharmacologic SPECT Report.: Myocardial perfusion imaging with Sestamibi SPECT at rest and post regadenoson (Lexiscan) infusion. INDICATIONS: I25.10 Atherosclerotic heart disease of [place] coronary artery without angina pectoris. FINDINGS: Perfusion: [...] 40-50%). Electronically Signed By: Isaiah Connolly MD, [facility] 2024-12-11 6:17:29 PM INBOUND INGREDIENT LOGISTICS SPECIALIST Procedure Note Isaiah Connolly MD - 12/11/[address] [address] [employer] Report Patient Name: FELECIA MENDOZA A : 1945 Study Date: 2024-12-11 7:22:51 AM Gender: F Tech: Ref Provider: MAYRA UGALDE Height(Cm): BSA: Weight(Kg): Order Provider: MAYRA UGALDE - PROCEDURES: Pharmacologic SPECT Report.: Myocardial perfusion imaging with Sestamibi SPECT at rest and postregadenoson (Lexiscan) infusion. INDICATIONS: I25.10 Atherosclerotic heart disease of [place] coronary artery withoutangina pectoris. FINDINGS: Perfusion: Normal [...] 40-50%). Electronically Signed By: Isaiah Connolly MD, [facility] 2024-12-11 6:17:29 PM INBOUND INGREDIENT LOGISTICS SPECIALIST Mayra Ugalde ASSEMBLER [employer] [facility] PROCEDURES Final Result * Stress Test for Myocardial Perfusion (12/11/2024 8:47 AM INBOUND INGREDIENT LOGISTICS SPECIALIST) LV EF % CONS SCIMAGE Anatomical Region Laterality Modality Nuclear Medicine 12/11/2024 8:30 AM INBOUND INGREDIENT LOGISTICS SPECIALIST Narrative 12/11/2024 10:11 AM INBOUND INGREDIENT LOGISTICS SPECIALIST [address] [address] [employer] Report Patient Name: FELECIA MENDOZA A : 1945 Study Date: 12/11/2024 8:30:00 AM Gender: F Tech: emely scott Ref Provider: MAYRA UGALDE Height(Cm): 155 BSA: 2.63 Weight(Kg): 161 Heart Rate: 118 Order Provider: MAYRA UGALDE PROCEDURES: Pharmacologic SPECT Report.: Myocardial perfusion imaging with Sestamibi SPECT at rest and post regadenoson (Lexiscan) infusion. INDICATIONS: Coronary Artery Disease and I25.10 Atherosclerotic heart disease of [place] coronary artery without angina pectoris. FINDINGS: Procedure [...] By: Dr Lyla Ron 12/11/2024 10:09:46 AM INBOUND INGREDIENT LOGISTICS SPECIALIST Procedure Note Lyla Ron MD - 12/11/[address] [address] [employer] Report Patient Name: FELECIA MENDOZA A : [...] By: Dr Lyla Ron 12/11/2024 10:09:46 AM INBOUND INGREDIENT LOGISTICS SPECIALIST Mayra Ugalde NP CV STRESS PROCEDURES Fi nal Result * Lipid panel (11/01/2021) Pathologist [facility] SCRIBED Cholesterol, Total 179 100 - 199 [facility] SCRIBED HDL 88 39 - 100 [facility] SCRIBED LDL 74 0 - 99 [facility] SCRIBED Triglycerides 99 0 - 149 [facility] Blood specimen (specimen) 11/01/2021 Dominguez Starkey MD LAB BLOOD ORDERABLES Final Resu lt [facility] * Hemoglobin A1c (11/07/2020 4:35 PM INBOUND INGREDIENT LOGISTICS SPECIALIST) Pathologist [facility] Hgb A1C 5.5 4.0 - 5.6 % [facility] Estimated Average Glucose 111 mg/dL [facility] Comment: The ADA recommends reporting an estimated Average Glucose (eAG) with all Hemoglobin A1c results using the equation derived from a study of 507 normal and diabetic adults. Minority populations were underrepresented and children were not included. (Diabetes Care 31:1643-3029, 2008). The eAG is not equivalent to a fasting glucose. Blood specimen (specimen) 11/07/2020 4:35 PM INBOUND INGREDIENT LOGISTICS SPECIALIST 11/07/2020 7:35 PM INBOUND INGREDIENT LOGISTICS SPECIALIST Result [facility] Emely Cruz MD LAB BLOOD ORDERABLES Fi nal Result Performing Organization Address [facility] de Phone Number [facility] [address] [facility] [email or web address] [address] * Albumin Creatinine Ratio, Urine (06/22/2020 9:15 AM CDT) Albumin Ur <12.0 mg/L [facility] Comment: Interpretive Data No reference range established. Current interpretive data was last revised 2019. Creatinine Ur 193.7 mg/dL [facility] Comment: Interpretive Data No reference range established. Current interpretive data was last revised 2019. Albumin Creatinine Ratio, Ur <6 1 - 29 mg/g [facility] Urine 06/22/2020 9:15 AM CDT 06/22/2020 1:08 PM CDT Result [facility] Emely Cruz MD LAB URINE ORDERABLES Fi nal Result Performing Organization Address [facility] de Phone Number [facility] [address] Department [email or web address] [address] * Diabetic Foot Exam (06/22/2020) Result [facility] Historical Provider HEALTH MAINTENANCE Final Result * Diabetic Eye Exam (07/15/2019) Historical Provider HEALTH MAINTENANCE Final Result * Dexa Axial Skeleton Bone Density 1 or 2 Site (12/29/2018 10:39 AM INBOUND INGREDIENT LOGISTICS SPECIALIST) Anatomical Region Laterality Modality Body N/A Other 12/29/2018 11:5 9 AM INBOUND INGREDIENT LOGISTICS SPECIALIST Impressions 12/29/2018 12:02 PM INBOUND INGREDIENT LOGISTICS SPECIALIST 1. LUMBAR SPINE T SCORE -0.3; NORMAL. [...] Barillas Jr., M.D. Narrative 12/29/2018 12:02 PM INBOUND INGREDIENT LOGISTICS SPECIALIST DEXA AXIAL SKELETON BONE DENSITY 1 OR [...] Most Recently Relevant to Health Maintenance Insurance [address] [facility] [address] [place] [address] Advance Directives For more information, please contact: [phone] * Full Code (Latest Code Status on [...] 10:20 AM 09/20/2023 4:23 PM Care Teams Gas Roller Operator Relationship Specialty Start Date End Date Jason Strickland MD PCP - General 08/31/21 Guero Hernandez MD Consulting Physician Gastroenterology 04/14/19
--- OUTSIDE RECORDS SUMMARY | 2025-02-10 10:57 | XMS_ITS | Encounter Summary ---
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 PCP: Marty. ALTERNATIVE PHONE NUMBER: [phone] WHO CALLED: Patient called. SECTION 1: REQUESTED ACTION [email or web address] 07/19/06 at 02:59 pm: MEDICATION REQUEST: Pt needs a 3 month script called in for Dyazide and Celabrex pt also needs her Albuterol Inhaler called in to pharmacy # [phone] DOCTOR`S RESPONSE: kristine 07/19/06 at 06:07 pm MEDICATIONS: Call in to Pharmacy DYAZIDE ORAL CAPSULE CONVENTIONAL 37.5-25 MG, 1 Two Times A Day, 180 Dispensed, 3 Fills, status: CONTINUED, 07/19/2006. ALBUTEROL INHALATION AEROSOL SOLUTION 90 MCG/ACT, 1-2 INHAL Q 4 HOURS NEEDED, 3 Dispensed, 3 Fills, status: CONTINUED, 07/19/2006. FINAL ACTION: [email or web address] 07/19/06 at 06:10 pm Called pharmacy at 07/19/06 at 06:10 pm. Electronically Signed by: Ana Ferguson MD on Wednesday, July 19, 2006 documented in this encounter Plan of Treatment Not on file documented as of this encounter Visit Diagnoses Not on filedocumented in this encounter Care Teams Fire Loss Prevention Engineer Relationship Specialty Start Date End Date Jaswant Kirby MD PCP - General Family Practice 08/27/16 documented as of this encounter
--- OUTSIDE RECORDS SUMMARY | 2025-02-10 10:57 | XMS_ITS | Continuity of Care Document ---
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 Name Role Phone Spencer Davis MD Unavailable Unavailable Allergies, Adverse Reactions, Alerts Substance Reaction Status Criticality PRESERVATIVE FREE Active No Informa tion MEPERIDINE HCL Active No Informatio n tetracycline Active No Information acetaminophen Active No Information OXYCODONE HCL Active No Information erythromycin base Active No Informa tion codeine Active No Information PHENYTOIN SODIUM EXTENDED Active No Information PHENYTOIN SODIUM Active No Informat ion MEPERIDINE HCL Active No Informatio n erythromycin base Active No Informa tion tetracycline Active No Information codeine Active No Information Medications Medication Instructions Dosage Effective Dates (start - stop) Status Comments MOBIC 15 MG TABLET TAKE ONE TABLET BY MOUTH ONCE DAILY - Active Medrol (Malik) 4 mg tablets in a dose pack Take as Directed - Active amoxicillin 500 mg tablet take 4 tablet by oral route ( 2 grams) one hour prior to procedure - Active hydrocodone 5 mg-acetaminophen 325 mg tablet take 1 -2 tablet by oral route every 6 hours as needed for pain - Active METOPROLOL SUCCINATE (unknown strength) Not Available - Active ESCITALOPRAM OXALATE (unknown strength) Not Available - Active ATORVASTATIN CALCIUM (unknown strength) Not Available - Active AZELASTINE HCL (unknown strength) Not Available - Active OMEPRAZOLE (unknown strength) Not Available - Active MQECBL-[id number] AFF-CODEIN (unknown strength) Not Available - Active TRAMADOL HCL (unknown strength) Not Available - Active TRAZODONE HCL (unknown strength) Not Available - Active FARTUN (unknown strength) Not Available - Active BENAZEPRIL HCL (unknown strength) Not Available - Active SERTRALINE HCL (unknown strength) Not Available - Active SIMVASTATIN (unknown strength) Not Available - Active MONTELUKAST SODIUM (unknown strength) Not Available - Active ALPRAZOLAM (unknown strength) Not Available - Active METOCLOPRAMIDE HCL (unknown strength) Not Available - Active simvastatin 20 mg tablet take 1 tablet by oral route every day in the evening 20 MG - Active benazepril 5 mg tablet take 1 tablet (5MG) by oral route every day 5 MG - Active Fartun 180 mg tablet take 1 tablet (180MG) by oral route every day - Active Alvesco 160 mcg/actuation Aerosol Inhaler inhale 1 puff (160MCG) by inhalation route every day 160 MCG - Active Singulair 10 mg tablet take 1 tablet (10MG) by oral route every day in the evening 10 MG - Active Xanax 0.5 mg tablet take 1 tablet (0.5MG) by oral route 3 times every day 0.5 MG - Active trazodone 50 mg tablet take 1 tablet (50MG) by oral route 3 times every day after meals 50 MG - Active sertraline 50 mg tablet take 1 tablet (50MG) by oral route every day 50 MG - Active Ventolin HFA 90 mcg/actuation Aerosol Inhaler inhale 2 puff by inhalation route 4 - 6 hours as needed - Active Astelin 137 mcg Nasal [place] Aerosol spray 2 spray by intranasal route 2 times every day in each nostril - Active MOBIC 15 MG TABLET TAKE ONE TABLET BY MOUTH ONCE DAILY - No Longer Active Procedures Procedure Date OFFICE/OUTPATIENT VISIT EST OFFICE/OUTPATIENT VISIT EST OFFICE/OUTPATIENT VISIT EST OFFICE/OUTPATIENT VISIT EST OFFICE/OUTPATIENT VISIT EST POSTOP FOLLOW-UP VISIT POSTOP FOLLOW-UP VISIT POSTOP FOLLOW-UP VISIT POSTOP FOLLOW-UP VISIT OFFICE/OUTPATIENT VISIT EST OFFICE/OUTPATIENT VISIT EST OFFICE/OUTPATIENT VISIT EST OFFICE/OUTPATIENT VISIT EST OFFICE/OUTPATIENT VISIT EST OFFICE/OUTPATIENT VISIT EST OFFICE/OUTPATIENT VISIT EST OFFICE/OUTPATIENT VISIT EST OFFICE/OUTPATIENT VISIT EST OFFICE/OUTPATIENT VISIT EST OFFICE/OUTPATIENT VISIT EST OFFICE/OUTPATIENT VISIT EST Rx certified EHR OFFICE/OUTPATIENT VISIT EST POSTOP FOLLOW-UP VISIT DXA BONE DENSITY STUDY AXIAL CA screen;pelvic/breast exam Obtaining screen pap smear ASSAY TEST FOR BLOOD FECAL POSTOP FOLLOW-UP VISIT POSTOP FOLLOW-UP VISIT OFFICE/OUTPATIENT VISIT EST OFFICE/OUTPATIENT VISIT EST OFFICE/OUTPATIENT VISIT EST OFFICE/OUTPATIENT VISIT EST OFFICE/OUTPATIENT VISIT EST PER PM REEVAL EST PAT 65+ YR Advance Directives Directive Yes / No Effective Date File Name No Information Encounters Encounter Description Practice Location Reason(s) For Visit Diagnoses Date Provider Providers Copied on Encounter [facility], [address] [place] [address], [address], tel:[phone] [facility] [address] No Information 9 Ryan Palmer. [address], [place], [place], [id number] . tel: [phone] [facility], [address] [place] [address], [address], tel:[phone] [facility] No Information 9 Ryan Palmer. [address], [place], [place], [id number] . tel: [phone] OFFICE/OUTPA TIENT VISIT EST [facility], [address], [address], tel:[phone] [facility] Primary osteoarthriti s of right knee 9 Ryan Palmer. [address], [place], [place], [address] . tel: [phone] OFFICE/OUTPA TIENT VISIT [facility], [address] [facility] [address], [place], [address], [place] tel:[phone] [facility] Spinal stenosis of lumbar region without neurogenic claudicationS pondylolisthe sis of lumbar region 8 Yuni Tejada. [address] [facility], [place], [place], [address] . tel: [phone] OFFICE/OUTPA TIENT VISIT [facility], [address] [facility] [address], [place], [address], [place] tel:[phone] [facility] MRI REVIEW R KNEE (chief complaint) Other bursitis of knee, right knee 8 Ryan Palmer. [address] [facility] [address], [place], [place], [address] . tel: [phone] [facility], [address] [facility], [place], [address], [place] tel:[phone] [facility] Primary osteoarthriti s of right knee 8 Ryan Palmer. [address] [facility] [address], [place], [place], [address] . tel: [phone] OFFICE/OUTPA TIENT VISIT [facility], [address] [facility] [address], [place], [address], [place] tel:[phone] [facility] EVAL R KNEE (chief complaint) Primary osteoarthriti s of right knee 8 Ryan Palmer. [address], [place], [place], [address] . tel: [phone] Referring Provider: Guero Patterson, [address] [place] [address] [address], [place], [address]. tel:[phone] OFFICE/OUTPA TIENT VISIT [facility], [address] [facility] [address], [place], [address], [place] tel:[phone] [facility] Body mass index (BMI) 38.0-38.9, adultLumbar post-laminect los syndrome 8 Yuni Tejada. [address] [facility], [place], [place], [address] . tel: [phone] [facility], [address] [facility] [address], [place], [address], [place] tel:[phone] [facility] No Information 0 8 Ryan Palmer. [address] [facility] [address], [place], [place], [address] . tel: [phone] [facility], [address] [address], [place], [address], [place] tel:[phone] [facility] Status post left knee replacement 7 Ryan Palmer. [address] [facility] [address], [place], [place], [address] . tel: [phone] [facility], [address], [place], [address], [place] tel:[phone] [facility] Status post left knee replacement 7 Ryan Palmer. [address] [facility], [place], [place], [address] . tel: [phone] [facility], [address] [facility] [address], [place], [address], [place] tel:[phone] [facility] No Information 7 Ryan Palmer. [address] [facility], [place], [place], [address] . tel: [phone] [facility], [address] [facility] [address], [place], [address], [place] tel:[phone] [facility] Other specified postprocedura l states 7 Ryan Palemr. [address] [facility] [address], [place], [place], [address] . tel: [phone] [facility], [address] [address], [place], [address], [place] tel:[phone] [facility] Body mass index (BMI) 38.0-38.9, adultOther specified postprocedura l states 7 Ryan Palmer. [address] [facility] [address], [place], [place], [address] . tel: [phone] [facility], [address] [place] [address], [place], [address], [place] tel:[phone] [facility] Unilateral primary osteoarthriti s, left knee 7 Ryan Palmer. [address] [address], [place], [place], [address] . tel: [phone] OFFICE/OUTPA TIENT VISIT [facility], [address] [place] [address], [place], [address], [place] tel:[phone] [facility] Unilateral primary osteoarthriti s, left knee 7 Ryan Palmer. [address], [place], [place], [address] . tel: [phone] OFFICE/OUTPA TIENT VISIT [facility], [address] [place] [address], [place], [address], [place] tel:[phone] [facility] eval left knee/right ankle (chief complaint) Sprain of tibiofibular ligament of right ankle, initial encounterSpra in of other specified parts of left knee, initial encounter 7 Ryan Palmer. [address], [place], [place], [address] . tel: [phone] [facility], [address] [place] [address], [place], [address], [place] tel:[phone] [facility] salvage determiner current use of non-steroidal anti-inflamma tories (NSAID) 7 Ryan Palmer. [address] [address], [place], [place], [address] . tel: [phone] OFFICE/OUTPA TIENT VISIT [facility], [address] [facility] [address], [place], [address], [place] [phone] [facility] Unilateral primary osteoarthriti s, left kneeUnilatera l primary osteoarthriti s, right kneeIT band syndrome, right Feb- 7 Ryan Palmer. [address], [place], [place], [address] . tel: [phone] OFFICE/OUTPA TIENT VISIT [facility], [address] [facility] [address], [place], [address], [place] [phone] [facility] Follow Up of ANNALISA OA (chief complaint) Unilateral primary osteoarthriti s, right kneeUnilatera l primary osteoarthriti s, left knee 7 Ryan Palmer. [address], [place], [place], [address] . tel: [phone] OFFICE/OUTPA TIENT VISIT [facility], [address] [place] [address] [address], [place], [address], [place] [phone] [facility] Primary osteoarthriti s of first carpometacarp al joint of right handRight carpal tunnel syndrome Nov-0 7 Xavier Tawanna. [address] [place], [place], [address] . tel: [phone] OFFICE/OUTPA TIENT VISIT [facility], [address] [place] [address] [address], [place], [address], [place] tel:[phone] [facility] Follow Up of bilat. carpal/ cubital tunnel (chief complaint) Right carpal tunnel syndromePrima ry osteoarthriti s of first carpometacarp al joint of right hand Nov- 6 Xavier Tawanna. [address] [place], [place], [address] . tel: [phone] OFFICE/OUTPA TIENT VISIT [facility], [address] [facility] [address], [place], [address], [place] [phone] [facility] Primary osteoarthriti s of first carpometacarp al joint of right handRight carpal tunnel syndromeMass of left forearm Aug- 2-201 6 Xavier Stacy. [address] [facility], [place], [place], [address] . tel: [phone] OFFICE/OUTPA TIENT VISIT [facility], [address] [facility] [address], [place], [address], [place] tel:[phone] [facility] f/u bilat knees (chief complaint) Unilateral primary osteoarthriti s, left kneeUnilatera l primary osteoarthriti s, right knee Aug- 0- 6 Ryan Palmer. [address] [facility] [address], [place], [place], [address] . tel: [phone] [facility], [address] [address], [place], [address], [place] tel:[phone] [facility] Unilateral primary osteoarthriti s, left knee Jul- 6 Ryan Palmer. [address] [facility] [address], [place], [place], [address] . tel: [phone] OFFICE/OUTPA TIENT VISIT [facility], [address] [place] [address], [place], [address], [place] tel:[phone] [facility] Unilateral primary osteoarthriti s, right kneeUnilatera l primary osteoarthriti s, left knee May-- 6 Ryan Palmer. [address] [facility] [address], [place], [place], [address] . tel: [phone] OFFICE/OUTPA TIENT VISIT [facility], [address] [facility] [address], [place], [address], [place] tel:[phone] [facility] Unilateral primary osteoarthriti s, left kneeUnilatera l primary osteoarthriti s, right knee Feb 6 Ryan Palmer. [address] [facility] [address], [place], [place], [address] . tel: [phone] OFFICE/OUTPA TIENT VISIT EST [facility], [address] [facility] [address], [place], [address], [place] [phone] [facility] BILAT KNEE PAIN (chief complaint) Unilateral primary osteoarthriti s, right kneeUnilatera l primary osteoarthriti s, left knee 6 Ryan Palmer. [address] [facility] [address], [place], [place], [address] . tel: [phone] OFFICE/OUTPA TIENT VISIT EST [facility], [address] [place] [address], [address], [place] [phone] [facility] Postlaminecto my syndrome, not elsewhere classified 6 Yuni Tejada. [address] [place], [place], [address] . tel: [phone] OFFICE/OUTPA TIENT VISIT [facility], [address] [place] [address], [address], [place] [phone] [facility] Primary osteoarthriti s of left kneePrimary osteoarthriti s of right knee 5 Ryan Palmer. [address] [facility] [address], [place], [place], [address] . tel: [phone] [facility], [address] [place] [address], [address], [place] tel:[phone] [facility] Lumbar post-laminect los syndromeUnila teral primary osteoarthriti s, left kneeUnilatera l primary osteoarthriti s, right knee 5 Lataylsohan Tejada. [address] [place], [place], [address] . tel: [phone] [facility] [address] [facility] [facility] [address], [place], [address], [place] tel:[phone] [facility] No Information 5 Leah Colorado. [address] [facility] [address] [facility], [place], [place], [address] . tel: [phone] [facility] [address] [facility] 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 [address] [facility], [place], [place], [address] . tel: [phone] [facility], [address] [place] [address], [address], tel:[phone] [facility] Follow Up of revision complete lumbar laminectomy (chief complaint) Postlaminecto my syndrome, lumbar region Jul-2 5 Curylo Terrell. [address] [place], [place], [address] . tel: [phone] [facility], [address] [place] [address], [address], [place] [phone] [facility] Follow Up of PO lumbar (chief complaint) Postlaminecto my syndrome, lumbar region 5 Curylo Terrell. [address] [place], [place], [address] . tel: [phone] [facility], [address] [place] [address], [address], [place] tel:[phone] [facility] Postlaminecto my syndrome, cervical regionPostlam inectomy syndrome, lumbar region May-0 9- 5 Curylo Terrell. [address] [place], [place], [address] . tel: [phone] OFFICE/OUTPA TIENT VISIT EST [facility], [address], [address], [place] [phone] [facility] FU LUMBAR MRI (chief complaint)FU CERVICAL MRI (chief complaint) Postlaminecto my syndrome, cervical regionSpinal stenosis of lumbar regionAcquire d spondylolisth esis Jan-0 2-201 5 Curylo Terrell. [address] [place], [place], [address] . tel: [phone] OFFICE/OUTPA TIENT VISIT [facility], [address] [place] [address], [address], [place] tel:[phone] [facility] Spinal stenosis of lumbar regionPostlam inectomy syndrome, lumbar regionPostlam inectomy syndrome, cervical region Ceasar-2 0-201 5 Curylo Terrell. [address] [place], [place], [address] . tel: [phone] OFFICE/OUTPA TIENT VISIT EST [facility], [address] [place] [address], [address], [place] tel:[phone] [facility] right shldr (chief complaint) Shoulder impingement 4 Xavier Tawanna. [address] [place] [address], [id number] . tel: [phone] OFFICE/OUTPA TIENT VISIT 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 [address] [place] [address], [id number] . tel: [phone] OFFICE/OUTPA TIENT VISIT EST [facility] [address] [facility] [address], [place], [address], [place] tel:[phone] [facility] screening visit (chief complaint) Mammogram, ScreeningRout ine ELEVATOR REPAIRER APPRENTICE examMenopause Diabetes Mellitus Type 2, Uncomplicated Asthma Unspecified W/O Asthmaticus 4 Chandu Noland. [address] [facility] [facility] [address], [place], [address]. tel: [phone] PER PM REEVAL EST PAT 65+ YR [facility] [address] [facility] [address], [place], [place], [facility], tel:[phone] [facility] annual visit (chief complaint) Well Woman / Routine Support Architect/PapMenopa usal SymptomsDiabe fernando Mellitus Type 2, Uncomplicated GERDACQ ABSNCE CERVIX/UTERUS Asthma Unspecified W/O Asthmaticus 3 Chandu Noland. [address] [facility], [place], [address]. tel: [phone] [facility] [address] [facility] [address], [place], [place], [facility], tel:[phone] [facility] No Information 3 Chandu Noland. [address] [facility] [facility] [address], [place], [address]. tel: [phone] Family History Family Member Type Diagnosis Age At Onset Father Problem (finding) pulmonary emphysema Father Problem (finding) stroke Problem (finding) Family history of Arthr itis Paternal grandmother Problem (finding) Maternal history of diabetes mellitus Father Problem (finding) hypertension Brother Problem (finding) pulmonary emphysema Mother Problem (finding) stroke Mother Problem (finding) hypertension Mother Problem (finding) Heart disease Father Problem (finding) Heart disease Sister Problem (finding) hypertension Sister Problem (finding) Heart disease Maternal aunt Problem (finding) Maternal histo ry of diabetes mellitus Father Problem (finding) Father Problem (finding) Cardiovascular disease (Cause Of ) 61 Immunizations Vaccine Date Status Comments Zoster administered Source: Other P rovider Pneumo (2 yrs or older)(PPV) administered Source: Other Provider Payers Payer name Insurance type Covered green party ID Authoriza tilazaro(s) Patricia OT [id number] Social History Type Description Quantity Date Captured Comments Sex Female Smoking Status No Information Chief Complaint And Reason For Visit No Information Reason For Referral Reason For Referral No Information Plan Of Treatment Date Type Action Status Referral Ordered: MRI ANY JT LXTR C-MATRL RT knee Appointment date/timeframe: 04/23/2018 ordered Referral Ordered: RADEX KNE 3 VIEWS LT ordered Referral Ordered: RADEX ANKLE COMPL MINIMUM 3 VIEWS RT ordered Referral Ordered: RADEX WRST COMPL MINIMUM 3 VIEWS LT ordered Referral Ordered: RADEX HAND MINIMUM 3 VIEWS RT ordered Referral Ordered: RADEX KNE COMPL 4/MORE VIEWS RT ordered Referral Ordered: RADEX KNE COMPL 4/MORE VIEWS LT ordered Referral Ordered: MRI ANY JT LXTR C-MATRL LT knee Appointment date/timeframe: 08/30/2016 ordered Referral Ordered: RADEX KNE 1/2 VIEWS RT ordered Referral Ordered: RADEX KNE 1/2 VIEWS LT ordered Referral Ordered: DXA BONE DENSITY STUDY AXIAL ordered Referral Ordered: RADEX SPI LUMBOSAC MINIMUM 4 VIEWS ordered Referral Ordered: RADEX SPI LUMBOSAC 2/3 VIEWS ordered Referral Ordered: CT LMBR SPI C+ MATRL (Lumbar CT Myelogram) spine, lumbar Appointment date/timeframe: 06/17/2015 ordered Referral Ordered: CT CRV SPI C+ MATRL (CV CT Myelogram) spine, cervical ordered Referral Ordered: MRI SPI CANAL&CNTS LMBR C-MATRL Appointment date/timeframe: 12/22/2014 ordered Referral Ordered: RADEX SPI CRV COMPL W/OBLQ&FLEXION&/XTN STDS ordered Referral Ordered: MRI SPI CANAL&CNTS CRV C-MATRL Appointment date/timeframe: 12/22/2014 ordered Referral Ordered: RADEX SPI LUMBOSAC COMPL W/BENDING VIEWS ordered Referral Ordered: RADEX KIM COMPL MINIMUM 2 VIEWS RT ordered History Of Present Illness Encounter Date Complaint History Of Prese nt Illness MRI REVIEW R KNEE EVAL R KNEE eval left knee/right ankle Follow Up of ANNALISA OA Follow Up of bilat. carpal/ cubital tunnel f/u bilat knees BILAT KNEE PAIN annual exam Currently pregna nt: no. : 2. Parity: Term: 2. Positive for: breast self exam.Postmenopausal: Age: 39, Type: hysterectomy w/BSO. Negative for Hormone replacement therapy. Menopausal symptoms negative for: insomnia and vaginal dryness. Menopausal symptoms positive for: hot flashes and night sweats.The patient states her exercise level is sedentary and frequency is never. She does not drink alcohol. 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 Rel ated to Spinal stenosis of lumbar region without neurogenic claudication Activity as tolerated. Related t o Spinal stenosis of lumbar region without neurogenic claudication Immobilize as directed. Related to Pes anserine bursitis Apply ice as tolerated. Related to Pes anserine bursitis activity as tolerated Related to Primary osteoarthritis of right knee apply heating pad or ice as tolerated Related to Primary osteoarthritis of right knee Fall risk home exerc ise program handout provided Giving encouragement to exercise Related to Body mass index (BMI) 38.0-38.9, adult Activity as tolerated. Related t o Lumbar post-laminectomy syndrome Avoid prolonged bed rest. Relate d to Lumbar post-laminectomy syndrome Take medication as prescribed. R elated to Lumbar post-laminectomy syndrome watch for signs of i nfection - increased pain, fever and redness Related to Status post left knee replacement watch for signs of i nfection - increased pain, fever and redness Related to Status post left knee replacement increase activity as instructed Related to Status post left knee replacement increase activity as instructed Related to Status post left knee replacement increase activity as instructed Related to Status post left knee replacement watch for signs of i nfection - increased pain, fever and redness Related to Status post left knee replacement Giving encouragement to exercise Related to Body mass index (BMI) 38.0-38.9, adult watch for signs of i nfection - increased pain, fever and redness Related to Status post left knee replacement increase activity as instructed Related to Status post left knee replacement Fall risk home exerc ise program handout provided elevate higher than your heart R elated to Unilateral primary osteoarthritis, left knee apply heating pad or ice as tolerated Related to Unilateral primary osteoarthritis, left knee Apply ice as tolerated. Related to Sprain of left knee, unspecified ligament, initial encounter Elevate extremity above heart. R elated to Sprain of left knee, unspecified ligament, initial encounter apply heating pad or ice as tolerated Related to Unilateral primary osteoarthritis, right knee activity as tolerated Related to Unilateral primary osteoarthritis, right knee apply heating pad or ice as tolerated Related to Unilateral primary osteoarthritis, left knee activity as tolerated Related to Unilateral primary osteoarthritis, left knee Splint as directed. Related to P rimary osteoarthritis of first carpometacarpal joint of right hand Ice as directed. Related to Prim marleni osteoarthritis of first carpometacarpal joint of right hand Apply ice as instructed. Related to Right carpal tunnel syndrome Activity as tolerated. Related t o Right carpal tunnel syndrome Ice as needed. Related to Right carpal tunnel syndrome Ice as needed. Related to Right carpal tunnel syndrome Splint as directed. Related to P rimary osteoarthritis of first carpometacarpal joint of right hand Ice as directed. Related to Prim marleni osteoarthritis of first carpometacarpal joint of right hand Activity as tolerated. Related t o Right carpal tunnel syndrome Ice as needed. Related to Right carpal tunnel syndrome Apply ice as instructed. Related to Right carpal tunnel syndrome Activity as tolerated. Related t o Right carpal tunnel syndrome Activity as tolerated. Related t o Right carpal tunnel syndrome Ice as needed. Related to Right carpal tunnel syndrome Splint as directed. Related to P rimary osteoarthritis of first carpometacarpal joint of right hand Ice as directed. Related to Prim marleni osteoarthritis of first carpometacarpal joint of right hand Apply ice as instructed. Related to Right carpal tunnel syndrome apply heating pad or ice as tolerated Related to Unilateral primary osteoarthritis, left knee activity as tolerated Related to Unilateral primary osteoarthritis, left knee apply heating pad or ice as tolerated Related to Unilateral primary osteoarthritis, right knee activity as tolerated Related to Unilateral primary osteoarthritis, right knee apply heating pad or ice as tolerated Related to Unilateral primary osteoarthritis, right knee activity as tolerated Related to Unilateral primary osteoarthritis, right knee apply heating pad or ice as tolerated Related to Unilateral primary osteoarthritis, left knee activity as tolerated Related to Unilateral primary osteoarthritis, left knee Take medication as prescribed. R elated to Lumbar post-laminectomy syndrome Avoid prolonged bed rest. Relate d to Lumbar post-laminectomy syndrome Activity as tolerated. Related t o Lumbar post-laminectomy syndrome Will do paps every o ther yr.Check BMD today. 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 Related t o Postlaminectomy syndrome, lumbar region Avoid prolonged bed rest. Relate d to Postlaminectomy syndrome, lumbar region Take medication as prescribed. R elated to Postlaminectomy syndrome, lumbar region Activity as tolerated. Related t o Spinal stenosis of lumbar region Take medication as directed. Rel ated to Spinal stenosis of lumbar region Immobilize as directed. Related to Shoulder impingement Apply ice as tolerated. Related to Shoulder impingement Elevate extremity above heart. R elated to Shoulder impingement Assessments Type Assessment Date No Information Patient Care Teams Name Effective Dates (start - stop) Status Members No Information
--- OUTSIDE RECORDS SUMMARY | 2025-02-10 10:57 | XMS_ITS | Encounter Summary ---
Author Organization [facility] Address [address] [place] [address] Care Team Providers Care Parts Counter Representative Name Role Phone Jaswant Kirby MD Primary Care Provider Unavail able Encounter Details Date Type Department Care Team (Late st Contact Info) Description 09/19/2006 Orders Only [facility] Family Medicine [facility] [address] [place] [address] [place] 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 PCP: Rafat. ALTERNATIVE PHONE NUMBER: [phone] WHO CALLED: Patient called. PHARMACY NUMBER: [phone] SECTION 1: REQUESTED ACTION [email or web address] 09/19/06 at 02:49 pm: MEDICATION REQUEST: can you call 1 month into pharmacy and mail a 3 month rx to pt's home? Patient requests a refill. Celebrex DOCTOR`S RESPONSE: [email or web address] 09/19/06 at 03:31 pm MEDICATIONS: Call in to Pharmacy CELEBREX ORAL CAPSULE CONVENTIONAL 200 MG, 1 Two Times A Day, 180 Dispensed, 3 Fills, 90 Duration/Days Supply, status: NEW PRESCRIPTION, 09/19/2006. and call in one month to pharmacy. I mailed Rx. PGD FINAL ACTION: mignon 09/19/06 at 03:58 pm Called pharmacy at 09/19/06 at 03:58 pm. rx called into pharm. Pt informed of edna...peyton Electronically Signed by: Peyton Schneider on August documented in this encounter Plan of Treatment Not on file documented as of this encounter Visit Diagnoses Not on filedocumented in this encounter Care Teams Parts Counter Representative Relationship Specialty Start Date End Date Jaswant Kirby MD PCP - General Family Practice 08/27/16 documented as of this encounter
--- OUTSIDE RECORDS SUMMARY | 2025-02-10 10:57 | XMS_ITS | Encounter Summary ---
Author Organization [facility] Address [address] [place] [address] Care Team Providers Care Tour Bus Driver Name Role Phone Jaswant Kirby MD Primary Care Provider Unavail able Encounter Details Date Type Department Care Team (Late st Contact Info) Description 10/09/2006 Orders Only [facility] Family Medicine [facility] [address] [address] [place] [address] [place] [address] [place] [address] Social History Tobacco Use Types Packs/Day Years Used Date Smoking Tobacco: Never Assessed Comments Unknown Sex and Gender Information Value Date Recorded Sex Assigned at Not on file 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
--- OUTSIDE RECORDS SUMMARY | 2025-02-10 10:57 | XMS_ITS | Clinical Summary ---
Author Organization [facility] Address [address] [facility], [address] [address] Phone Care Team Providers Care Conductor Freight Name Role Phone Jaswant Kirby MD Primary Care Provider [phone] Allergies Active Allergy Reactions Criticality Noted Date Comments Amoxicillin-Pot Clavulanate Diarrhea,Nausea,Vomiting Codeine Sulfate Unknown Meperidine Unknown Erythromycin Unknown Oxycodone Unknown Sulfa Antibiotics Unknown Tetracycline Unknown Medications omeprazole (PRILOSEC) 40 MG CAPSULE DELAYED RELEASE Acti ve esomeprazole (NEXIUM) 40 MG CAPSULE DELAYED RELEASE every morning. Reported on 03/22/2017 Active montelukast (SINGULAIR) 10 MG Tablet daily. Active metoclopramide (REGLAN) 10 MG Tablet daily. Active TraZODone & Diet Manage Prod (TRAZAMINE) 50 MG Misc 0.5 Tabs nightly. Active ALPRAZolam (XANAX) 0.5 MG Tablet daily. Active simvastatin (ZOCOR) 20 MG Tablet daily. Reported on 03/22/2017 Active sertraline (ZOLOFT) 50 MG Tablet 25 mg nightly. Active benazepril (LOTENSIN) 5 MG Tablet daily. Active fexofenadine (SHELLY ALLERGY) 60 MG Tablet daily. Active escitalopram (LEXAPRO) 10 MG Tablet 07/25/2016 Active ADVAIR DISKUS 250-50 MCG/DOSE AEROSOL POWDER, BREATH ACTIVATED 07/24/2016 Active FLOVENT HFA 44 MCG/ACT Aerosol Reported on 03/22/2017 05/10/2016 Active fish oil-omega-3 fatty acids 1000 MG Capsule Take 1,000 mg by mouth daily. Active vitamin b-12 (CYANOCOBALAMIN ) 100 MCG Tablet Take 100 mcg by mouth daily. Active folic acid (FOLVITE) 800 MCG Tablet Take 800 mcg by mouth daily. Active biotin 300 MCG Tablet Take 300 mcg by mouth daily. Active Meloxicam 15 MG Tablet Take 15 mg by mouth daily. Active metoprolol Succinate (TOPROL-XL) 25 MG TABLET SR 24 HR Take 25 mg by mouth daily. Active atorvastatin (LIPITOR) 40 MG Tablet Take 40 mg by mouth daily. Active metoclopramide (REGLAN) 5 MG Tablet Take 1 Tab by mouth 2 times daily. 60 Tab 3 03/22/2017 Active Active Problems Problem Noted Date Diagnosed Date Irritable bowel syndrome wit h both constipation and diarrhea 08/16/2016 Gastroparesis 08/16/2016 Left carotid bruit 08/16/2016 Abdominal pain Chest pain GERD (gastroesophageal reflux disease) Family History Medical History Relation Name Comments Heart Disease Brother 1 Abdominal Aortic Aneurysm Brother 2 Chronic Obstructive Pulmonary Disease Brother 3 Heart Attack Father Heart Disease Father Abdominal Aortic Aneurysm Mother Heart Disease Mother Heart Disease Sister 1 Heart Disease Sister 2 Relation Name Status Comments Brother 1 Brother 2 Brother 3 Father Mother Sister 1 Sister 2 Social History Tobacco Use Types Packs/Day Years Used Date Smoking Tobacco: Never Alcohol Use Standard Drinks/Week Comments No 0 (1 standard drink = 0.6 oz pur e alcohol) Comments No Sex and Gender Information Value Date Recorded Sex Assigned at Not on file Legal Sex Female 11:52 PM CDT Gender Identity Not on file Sexual Orientation Not on file Last Filed Vital Signs Vital Sign Reading Time Taken Comments Blood Pressure 130/90 03/22/2017 8:44 AM CDT Pulse 65 03/22/2017 8:44 AM CDT Temperature 36.7 C (98.1 F) 03/22/2017 8:44 AM CDT Respiratory Rate 16 03/22/2017 8:44 AM CDT Oxygen Saturation 96% 03/22/2017 8:44 AM CDT Inhaled Oxygen Concentration - - Weight 92.5 kg (204 lb) 03/22/2017 8:44 AM CDT Height 154.9 cm (5' 1 ) 03/22/2017 8:44 AM CDT Body Mass Index 38.55 03/22/2017 8:44 AM CDT Plan of Treatment Health Maintenance Due Date Last Done Comments DEXA Bone Density 1945 Hepatitis C Virus (HCV) Screening 1945 TdaP Immunization 1945 Pneumococcal Immunization (5 0+ years) (1 of 1 - PCV) 1993 Zoster Immunization (1 of 2) 1993 Respiratory Syncytial Virus (RSV) Immunization (Adult) (1 - 1-dose 75+ series) 2018 Influenza Immunization (#1) 2024 SARS-COV-2 Immunization ( - season) 2024 Hepatitis B Immunization Aged Out No longer eligible based on patient's age to complete this topic Meningococcal Immunization (ACWY) Aged Out No longer eligible based on patient's age to complete this topic Rotavirus Immunization Aged Out No lo nger eligible based on patient's age to [place] [address] MEDICARE C ESSENCE Care Teams Conductor Freight Relationship Specialty Start Date End Date Jaswant Kirby MD PCP - General Female Pelvic Medicine & Reconstructive Surgery 06/14/16
--- OUTSIDE RECORDS SUMMARY | 2025-02-10 10:57 | XMS_ITS | Encounter Summary ---
Author Organization [facility] Address [address] [place] [address] Care Team Providers Care Hvac Sheet Metal Installer Name Role Phone Jaswant Kirby MD Primary Care Provider Unavail able Encounter Details Date Type Department Care Team (Late st Contact Info) Description 07/30/2006 Outpatient [facility] [address] [place] [address] [place] [address] Mahogany Cisneros MD [address] [place] [address] [address] [address] Abdominal Pain, Right Lower Quadrant (Primary Dx) Social History Tobacco Use Types Packs/Day Years Used Date Smoking Tobacco: Never Assessed Comments Unknown Sex and Gender Information Value Date Recorded Sex Assigned at Not on file 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
--- OUTSIDE RECORDS SUMMARY | 2025-02-10 10:57 | XMS_ITS | Encounter Summary ---
Author Organization [facility] Address 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
== END 2025-02-10 09:44 | disposition home or self-care (01) ==
PROVIDERS: PCP Family Medicine; Visit Provider Nurse Practitioner Family
DX: R91.1 Solitary pulmonary nodule (principal)
CPT/HCPCS: 71250

== ENCOUNTER 2025-09-02 13:00 | Outpatient (CLI) | payer OTHER, SELFPAY | END 2025-09-02 13:01 | disposition home or self-care (01) | PROVIDERS: PCP Family Medicine; Visit Provider Nurse Practitioner Family | DX: H90.3 Sensorineural hearing loss, bilateral (principal) | CPT/HCPCS: 92557; 92567 ==